=== PATIENT | male | born 1940 | race Asian ===

== ENCOUNTER 2023-08-09 21:26 | Inpatient (IN) | payer OTHER, SELFPAY ==
[2023-08-09] VITALS (8 sets, daily range): BP systolic 93–185; BP diastolic 51–114; BMI 27.9; BMI 26.3
[2023-08-09 13:37] LABS: % Basophils 0.2 % (0-2); % Eosinophils 0.5 % (0-6); % Immature Granulocytes 0.4 % (0-0.5); % Lymphocytes 9.9 % (20.5-51.1); % Monocytes 11.1 % (1.7-9.3); % Neutrophils 77.9 % (42.2-75.2); Absolute Lymphocytes 0.8 10^3/uL (1.2-3.4); Absolute Monocytes 0.9 10^3/uL (0.1-0.6); Absolute Neutrophils 6.5 10^3/uL (1.4-6.5); Hematocrit 33.3 % (39.0-52.0); Hemoglobin 11.4 g/dL (13.0-18.0); Mean Corp Hgb Conc. 34.2 g/dL (33.0-37.0); Mean Corpuscular Hgb 32.8 pg (27.0-31.0); Mean Corpuscular Volume 95.7 fL (80.0-94.0); Mean Platelet Volume 9.9 fL (7.4-10.4); Nucleated Red Blood Cells % 0 % (-); Platelet Count 212 10^3/uL (130-400); Red Blood Cell Count 3.48 10^6/uL (4.70-6.10); Red Cell Dist. Width 12.3 % (11.5-14.5); White Blood Cell Count 8.3 10^3/uL (4.8-10.8)
[2023-08-09 14:01] LABS: ALT (SGPT) 19 U/L (0-50); AST (SGOT) 27 U/L (17-59); Albumin 4.2 g/dl (3.5-5.0); Alkaline Phosphatase 103 U/L (38-126); Blood Urea Nitrogen 27 mg/dl (9-20); Calcium 8.8 mg/dl (8.4-10.2); Carbon Dioxide 20 mmol/L (22-30); Chloride 105 mmol/L (98-107); Glucose 136 mg/dl (70-99); Potassium 5.4 mmol/L (3.5-5.1); Sodium 134 mmol/L (135-145); Total Bilirubin 0.7 mg/dl (0.2-1.3); Total Protein 7.2 g/dl (6.3-8.2); eGFR 30.85
--- NOTE | 2023-08-09 17:09 | ED.GENMED ---
History of Present Illness
General
Chief Complaint: Change in Mental Status
Source: patient and family
Time Seen by Provider: 08/09/23 15:48
Travel History
Have you had any contact with someone who has COVID-19?: No
Do you have any symptoms of coronavirus? Fever > 100 degrees, chills, cough, shortness of breath, sore throat, loss of taste or smell, muscle aches, or headache?: No
History of Present Illness
History of Present Illness:
This patient is an 82-year-old male was his perfectly well until last week as he was boarding a plane to [facility] where he was noted to be weaker than usual and just generally not feeling well. All week while he was in [place] and upon his return here
he has had progressive weakness such that he is having difficulty walking and needs assistance to do so. There is no report of focal weakness. Patient is also getting progressively confused. For example, he left the house or tried to leave the
house last night thinking that he was not home. There is no history of vomiting, chest pain, fever, abdominal pain. He does have mild anorexia and did not eat anything today.
Past History
Past History
ED Past Medical History: Cancer (Prostate CA with Radiation), HTN, Hypercholesterolemia and IDDM
ED Past Surgical History: Appendectomy
Social History
Tobacco: Former smoker
Alcohol: None
Personal:
Living: with family
Phy Exam
Physical Exam
Physical Exam:
GENERAL: Alert , in no apparent distress
EYE: pupils equal and reactive, no photophobia
NECK: Supple, no significant adenopathy.
ENT: o/p clr, mm slightly dry
CARDIAC: Regular rate and rhythm .
LUNGS: Clear breath sounds bilaterally, no acute respiratory distress, no wheezes/rales/rhonchi
ABDOMEN: Soft, without focal tenderness, distended no r/g, no cvat
NEUROLOGICAL: Awake alert. Does not answer questions regarding orientation, does not recognize his clslabkq-yx-tou but is asking for his son. No facial droop noted. Patient does not speak Turkmen to me. Fjiobnkn-lp-fzx who is now bedside states
that he is not making sense when he talks. His speech is not necessarily slurred but what he is saying is not comprehensible. Cmbcsv-cx-mmot normal, cranial nerves II through XII intact. Visual soto appear to be intact, sensory intact to light
touch. Moves all extremities equally no drift of upper extremities. Uncooperative with straight leg raise bilaterally but noted to be able to do so.
SKIN: Warm and dry, skin intact.
MUSCULOSKELETAL: No edema, well perfused.
PSYCH: Normal and appropriate interaction.
Course
Orders/Labs/Results
Orders:
Orders
08/09/23 13:30
CBC/With Diff [Complete Blood Count/With Diff] Urgent
CMP [Comprehensive Metabolic Panel] Urgent
08/09/23 Dinner
Regular
At Your Request: Limited, It Programmer Required
08/09/23 17:08
Electrocardiogram (*1) Urgent
Reason for Study: Other
Other Reason for Exam: sepsis
Cardiac Monitoring- Treatment ONCE
EKG- Treatment ONCE
CR Chest - 2 Views Urgent
Comment:
Reason For Exam: mental status change
Pulse Ox/cont/shift [RESP] Urgent
Quantity: 1
08/09/23 17:09
CT Head W/o Iv Contrast Urgent
Comment:
Reason For Exam: mental status change
08/09/23 17:17
Lactic Acid Q4H
Comment: CANCEL 2nd LACTIC ACID IF 1st LACTIC ACID IS LESS THAN 2
Troponin I Urgent
Urinalysis Reflex To Culture Urgent
Date Specimen was Collected: 08/09/23
Time Specimen was Collected: 17:15
Blood Culture Q30M
CHRISSIE Source: Blood/Venous
Specimen Description:
08/09/23 18:33
Blood Culture Q30M
CHRISSIE Source: Blood/Venous
Specimen Description:
02/21/24 20:54
Admit/Transfer Patient As Directed
Co-Sign Provider:
Level of Care: Inpatient admission
Assign to:: Medical/Surgical
Physician / Group: fatou
Diagnosis: metabolic encephelopathy
Reason for Hospitalization: metabolic encephelopathy
Expected length of stay greater than two midnights?: Yes
ELOS- Estimated Length of Stay in days: 2
I certify the patient meets the requirements for IP care: Yes
Code Status As Directed
Resuscitation Status: Do not resuscitate
Reached after discussion with pt or family/Healthcare POA: Yes
DNR Bracelet Application ONCE
08/09/23 20:57
Bladder Scan As Directed
Follow Bladder Retention/Intermittent Cath Algorithm?: Yes
PRN if no void in __ hours: 6
Frequency: Per Retention Algorithm
If Bladder Scan Result >: 400
then:: Straight cath
Straight Cath As Directed
Frequency: Per Retention Algorithm
Additional Instructions: straight cath as needed per acute urinary retention algorithm for 24 hrs
Additional Instructions: for bladder scan greater than 400 mL
08/09/23 23:50
Dextrose 50%-Water [Dextrose 50% Syringe] 12.5 grams IV [id number] PRN
Glucagon [GlucaGen] 1 mg IM PRN PRN
Insulin Glargine Lantus [Lantus] 20 units Subcutaneous Insulin Syringe [Syringe-Insulin] 0 unit SC HS
08/09/23 23:50
Procalcitonin Routine
PCT Algorithmm Indication: Sepsis
Activity As Directed
Activity Level: As Tolerated
Bedside Glucose Monitoring As Directed
Frequency: AC&HS
Comment: Change to q6h if pt on TPN, tube feeding or not eating
Vital Signs As Directed
Frequency: Per unit guidelines
DX Deep Vein Thrombosis Video Routine
08/10/23 00:47
Complete Blood Count/With Diff IN AM
Comprehensive Metabolic Panel IN AM
Glycohemoglobin (HgbA1c) IN AM
08/10/23 07:30
Insulin Aspart Corrective Low [Novolog Flexpen-Low Resistance] See Protocol SC AC
08/10/23 08:00
Aspirin Chewable [Low Strength Aspirin] 81 mg PO DAILY
Carvedilol [Coreg] 6.25 mg PO BID
Dapagliflozin [Farxiga] 10 mg PO DAILY
Heparin 5,000 units SC Q12
cycloSPORINE [Restasis 0.05% Ophthalmic Emulsion] 1 drops BOTH EYES BID
08/10/23 18:00
Atorvastatin [Lipitor] 10 mg PO QPM
Tamsulosin [Flomax] 0.4 mg PO QPM
omega-3 acid ethyl esters 1 grams PO QPM
Abnormal Lab Results
08/09/23 08/09/23
13:30 17:17
RBC 3.48 L 10^6/uL
(4.70-6.10)
Hgb 11.4 L g/dL
(13.0-18.0)
Hct 33.3 L %
(39.0-52.0)
MCV 95.7 H fL
(80.0-94.0)
MCH 32.8 H pg
(27.0-31.0)
Absolute Lymphs (auto) 0.8 L 10^3/uL
(1.2-3.4)
Absolute Monos (auto) 0.9 H 10^3/uL
(0.1-0.6)
Neutrophils % 77.9 H %
(42.2-75.2)
Lymphocytes % 9.9 L %
(20.5-51.1)
Monocytes % 11.1 H %
(1.7-9.3)
Sodium 134 L mmol/L
(135-145)
Potassium 5.4 H mmol/L
(3.5-5.1)
Carbon Dioxide 20 L mmol/L
(22-30)
BUN 27 H mg/dl
(9-20)
Creatinine 2.1 H mg/dL
(0.7-1.3)
Glucose 136 H mg/dl
(70-99)
Urine Glucose 3+ A
(Negative)
08/09/23 13:30
08/09/23 13:30
Vital Signs
Initial and Last Documented VS:
Initial Vital Signs
Temp Pulse Resp BP Pulse Ox
98.8 F 100 18 141/73 95
08/09/23 13:19 08/09/23 13:19 08/09/23 13:19 08/09/23 13:19 08/09/23 13:19
Last Documented Vital Signs
Temp Pulse Resp BP Pulse Ox
97.9 F 80 18 148/63 95
08/15/23 07:00 08/15/23 08:57 08/15/23 07:00 08/15/23 08:57 08/15/23 07:00
*Critical Care Note
Total Time (30-74mins, 75-104mins- exclusive of procedures): Not Applicable
Update Note
Update Note:
Patient presents to the Emergency Department with ___mental status change
Number and Complexity of Problems Addressed at the Encounter
� Chronic conditions affecting care:
� Acute Exacerbation and/or Progression of Chronic Illness:
� Differential Diagnosis includes: But not limited to pneumonia, UTI, TIA/CVA, medication effect, etc.
Amount and/or Complexity of Data to be Reviewed and Analyzed
� I performed an independent evaluation of and my interpretation is:
EKG:
CT: Head CT NAD read by radiology
Xrays: Chest x-ray NAD read by me
Laboratory Studies: Renal insufficiency which is nearly baseline
Other:
� Review of other/old records reveals: Patient had a very similar presentation June 2021 at that time his mental status change was related to medication Flexeril that he was
� Clinical information was obtained by an independent historian:
� Prescriptions/Medications Considered but not given:
� Further testing considered but not performed:
Risk of Complications and/or Morbidity or Mortality of Patient Management
� Social determinants of health affecting care:
� Discussion with other providers (PCP, Hospitalists, Consultants, etc):
� Escalation of care including admission/observation vs risk of discharge considered: 7:58 PM Case discussed with patient's tyhgvtwh-qx-hco who is now bedside. She states that he first became ill while he was in [place] and got
progressively worse which is why he cut his trip short and came back. She describes him as increasingly weak and having difficulty standing and walking associated with confusion. He does not have any specific complaints, such as chest pain,
dyspnea, etc. Unclear etiology of his symptoms at this time, will need admission/observation, MRI, etc.
ED Attending Note
-
Portions of this chart may have been created with voice recognition software.� Occasional wrong word or��sound alike� substitutions may have occurred due to the inherent limitations of voice recognition software.
Discharge Plan
Departure
Patient Disposition: Admit
Date of Disposition: 08/09/23
Time of Disposition: 20:06
Admit to: Telemetry
Admit to doctor: asif
Presentation/result/management discussed w/ accepting MD/DO: Hospitalist
Condition: Fair
Discharge Problem:
Altered mental status
Interventions
Interventions:
*Risk Screen - Suicide Last Done: 08/09/23 23:46
*General Assessment Last Done: 08/09/23 13:19
*Neglect/Abuse Screening Last Done: 08/09/23 13:19
ED- Fall Risk Assessment Last Done: 08/09/23 18:01
*ED COVID-19 Vaccine History Last Done: 08/09/23 13:19
*Nursing Disposition Last Done: 08/09/23 23:08
ED- Pulmonary Assessment Last Done: 08/09/23 18:01
ED-Psychological Assessment Last Done: 08/09/23 18:01
ED- Neurological Assessment Last Done: 08/09/23 18:01
ED- Cardiac Assessment Last Done: 08/09/23 18:01
ED Swallowing Screen Last Done: 08/09/23 18:01
Discharge Date and Time
Discharge Date/Time: 08/09/23 23:30
[2023-08-09 17:52] LABS: Urine Albumin Trace (Neg - Trace); Urine Bilirubin Negative (Negative); Urine Character Clear (Clear); Urine Color Yellow; Urine Glucose 3+ (Negative); Urine Ketone Negative (Negative); Urine Leukocyte Negative (Negative); Urine Nitrite Negative (Negative); Urine Occult Blood Negative (Negative); Urine Urobilinogen Negative (Neg - 1+)
[2023-08-09 18:04] LABS: Lactic Acid 1.7 mmol/L (0.7-2.0)
[2023-08-09 18:16] LABS: Troponin I 0.017 ng/ml
--- NOTE | 2023-08-09 20:59 | HPS.HSE ---
Family Physician
-
Family Physician: Ld Russell MD
Chief Complaint
-
altered mental status
History of Present Illness
82-year-old Malayalam speaking male past medical history of mild dementia, chronic back pain/neck pain, prostate cancer status post radiation, hypertension, hypercholesterolemia, diabetes, diabetic neuropathy, chronic kidney disease, presenting for
weakness and change in mental status. History is obtained from daughter. He was in his normal state of health prior to July [address] went to [facility]. While in [place] he became progressively more confused. He did not know where he was and
forgot details about himself. He was not making sense when he spoke. He supposed to stay in [place] for 2 weeks but came home after 1 week.
Over the past day he has been having generalized weakness and was unable to get up. Daughter did not note any facial droop or slurred speech. No headache or blurry vision.
Patient was noted to be shaking today. He had an episode of urinary incontinence today which is new without any other urinary symptoms. He did not have any nausea or vomiting or abdominal pain. No cough or shortness of breath or chest pain. No
diarrhea or constipation.
No low blood sugars recently.
No new medications.
Patient was admitted 2 years ago for metabolic encephalopathy attributed to starting Flexeril at that time.
Patient is a former smoker and alcohol user but no longer uses.
Medical History
Past Medical History
Past Medical History: Reports Other ( mild dementia, chronic back pain/neck pain, prostate cancer status post radiation, hypertension, hypercholesterolemia, diabetes, diabetic neuropathy, chronic kidney disease)
Past Surgical History: Reports None
Social History
Tobacco: Former Smoker
Alcohol: Former
Drug: None
Family History
Family History: Not pertinent
Allergies / Home Medications
Allergies reflects when Allergies were last updated in [facility].
Home Medications with original date entered in [facility]
Allergy/Medication List:
Allergies
Allergy/AdvReac Type Severity Reaction Status Date / Time
No Known Allergies Allergy Verified 08/09/23 13:19
Home Medications
aspirin 81 mg chewable tablet 81 mg PO DAILY Blood clot prevention/tx 07/15/21
atorvastatin 10 mg tablet 10 mg PO QPM High cholesterol 07/15/21
bicalutamide 50 mg tablet 50 mg PO QPM Cancer 07/15/21
cyclosporine 0.05 % eye drops in a dropperette (Restasis) 1 drp BOTH EYES BID Eye condition 07/15/21
gabapentin 100 mg capsule 100 mg PO BID Pain 07/15/21
glimepiride 1 mg tablet 1 mg PO DAILY Diabetes 07/15/21
insulin aspart U-100 100 unit/mL (3 mL) subcutaneous pen (Novolog FlexPen U-100 Insulin aspart) 15 units SC AC Diabetes 07/15/21
tamsulosin 0.4 mg capsule 0.4 mg PO QPM Urinary issue 07/15/21
carvedilol 6.25 mg tablet 6.25 mg PO BID 08/09/23
dapagliflozin propanediol 10 mg tablet (Farxiga) 10 mg PO DAILY 08/09/23
insulin degludec 100 unit-liraglutide 3.6 mg/mL(3 mL) subcutaneous pen (Xultophy 100/3.6) 20 unit SC DAILY 08/09/23
irbesartan 300 mg tablet 300 mg PO QPM 08/09/23
omega-3 acid ethyl esters 1 gram capsule 1 g PO QPM 08/09/23
Review of Systems
-
History Source: Patient
A 12 point ROS was completed and negative except as noted: Yes
Constitutional: Reports No Symptoms
EENT: Reports No Symptoms
Respiratory: Reports No Symptoms
Cardiac: Reports No Symptoms
Abdomen/GI: Reports No Symptoms
: Reports No Symptoms
Musculoskeletal: Reports No Symptoms
Skin: Reports No Symptoms
Neurological: Reports No Symptoms
Endocrine: Reports No Symptoms
Hematologic/Lymphatic: Reports No Symptoms
Psych: Reports No Symptoms
Physical Exam
Vital Signs
Vital Signs
Temp Pulse Resp BP Pulse Ox
98.8 F 106 23 177/114 96
08/09/23 13:19 08/09/23 20:30 08/09/23 20:30 08/09/23 20:30 08/09/23 20:30
Physical Exam
General: Well Developed, Well Nourished and No Apparent Distress
HEENT: NormoCephalic, Moist mucous membranes and Atraumatic
Respiratory: Clear
Cardiac: S1/S2 and Regular Rhythm; No Murmur or Rub
GI: Soft, Non Tender, Non Distended and Normal Bowel Sounds; No Organomegaly
Rectal: Deferred by Provider
Musculoskeletal: No Clubbing, No Cyanosis and No Edema
Skin: No Rash
Neuro: Nonfocal/grossly intact
Laboratory Results
-
08/09/23 13:30
08/09/23 13:30
Laboratory Results
Lactic Acid 1.7 mmol/L (0.7-2.0) 08/09/23 17:17
Total Bilirubin 0.7 mg/dl (0.2-1.3) 08/09/23 13:30
AST 27 U/L (17-59) 08/09/23 13:30
ALT 19 U/L (0-50) 08/09/23 13:30
Alkaline Phosphatase 103 U/L (38-126) 08/09/23 13:30
Troponin I 0.017 ng/ml 08/09/23 17:17
Data Reviewed
-
Lab Data: Labs Reviewed by me
Old Records: Reviewed
Impression/Plan
-
IMPRESSION:
PLAN:
# Altered mental status, likely metabolic encephalopathy unclear etiology
# Mild dementia at baseline
-No focal signs on examination to suggest CVA
-Urinalysis negative
-Chest x-ray unremarkable, report pending
-CT head negative
-Check COVID
-Blood cultures pending
-Hold gabapentin
-Check bladder scan to evaluate for urinary retention given episode of incontinence and history of prostate cancer
-Unlikely that prostate cancer would lead to brain metastases
#Chronic kidney disease stage III
# Mild hyperkalemia
-Renal function at baseline
-Hold irbesartan
Prostate cancer status post radiation
-Continue tamsulosin
-Not taking Casodex
Essential hypertension
-Hold irbesartan
-Continue Coreg
Hypercholesterolemia
-Continue statin
Type 2 diabetes
-Continue 20 units long-acting insulin
-Continue 15 units aspart before meals
-Continue Farxiga
-Insulin sliding scale
-Hold glimepiride
Diabetic retinopathy
Diabetic neuropathy
-Hold gabapentin
Chronic neck/back pain
DNR/DNI
DVT prophylaxis-heparin
Regular diet
[2023-08-09 22:06] LABS: COVID-19 Antigen Negative (Negative)
[2023-08-09 23:53] LABS: Glucose - Point of Care 223 mg/dl (70-99)
[2023-08-10] MEDS: LANTUS 0.200000000000000011 UNITS SC (00:25)
[2023-08-10 00:52] LABS: % Basophils 0.1 % (0-2); % Eosinophils 0.4 % (0-6); % Immature Granulocytes 0.6 % (0-0.5); % Lymphocytes 17.3 % (20.5-51.1); % Monocytes 15.5 % (1.7-9.3); % Neutrophils 66.1 % (42.2-75.2); Absolute Lymphocytes 1.2 10^3/uL (1.2-3.4); Absolute Monocytes 1.1 10^3/uL (0.1-0.6); Absolute Neutrophils 4.7 10^3/uL (1.4-6.5); Hematocrit 31.4 % (39.0-52.0); Hemoglobin 10.8 g/dL (13.0-18.0); Mean Corp Hgb Conc. 34.4 g/dL (33.0-37.0); Mean Corpuscular Hgb 32.6 pg (27.0-31.0); Mean Corpuscular Volume 94.9 fL (80.0-94.0); Nucleated Red Blood Cells % 0 % (-); Platelet Count 205 10^3/uL (130-400); Red Blood Cell Count 3.31 10^6/uL (4.70-6.10); Red Cell Dist. Width 12.2 % (11.5-14.5); White Blood Cell Count 7.2 10^3/uL (4.8-10.8)
[2023-08-10 00:58] VITALS: BP 166/78
--- NOTE | 2023-08-10 01:10 | PTCARENOTE ---
Patient received in bed from ED. Pt confused, grandson at bedside. Pt pulled over from stretcher. Pt offers no complaints at this time. Pt oriented to room and call [facility].
[2023-08-10 01:12] LABS: ALT (SGPT) 20 U/L (0-50); AST (SGOT) 29 U/L (17-59); Albumin 3.9 g/dl (3.5-5.0); Alkaline Phosphatase 92 U/L (38-126); Blood Urea Nitrogen 26 mg/dl (9-20); Calcium 8.4 mg/dl (8.4-10.2); Carbon Dioxide 18 mmol/L (22-30); Chloride 104 mmol/L (98-107); Estimated Creatinine Clearance 31 ml/min; Glucose 124 mg/dl (70-99); Potassium 4.4 mmol/L (3.5-5.1); Sodium 132 mmol/L (135-145); Total Bilirubin 0.7 mg/dl (0.2-1.3); Total Protein 6.9 g/dl (6.3-8.2); eGFR 37.12
[2023-08-10 01:43] LABS: Procalcitonin < 0.05 ng/ml (0.0-0.25)
[2023-08-10 07:29] LABS: Glucose - Point of Care 95 mg/dl (70-99)
[2023-08-10 07:30] VITALS: BP 130/83
[2023-08-10] MEDS: NOVOLOG FLEXPEN-LOW RESISTANCE SC ×3 (08:25→17:22)
--- NOTE | 2023-08-10 08:50 | W.PN.HOSP.TC ---
Today's Communication/Plan
-
see bold
Assessment / Plan
Assessment / Plan
Gen: NAD, awake and alert but not oriented, NCAT
Eyes: EOMI, PERRLA, no scleral icterus.
Neck: supple.
CV: RRR, +S1/S2, no m/r/g.
Resp: CTAB, no rales, wheezes, or rhonchi.
Abd: +BS, soft, NT, ND
Skin: No rashes.
Neuro: CN 2-12 intact, non-focal.
Psych: flat affect.
CT brain: No evidence of acute intracranial abnormality.
CXR: Lungs are slightly hypoinflated. Given the degree of inflation, no evidence for consolidation. No evidence for pulmonary edema or pleural effusion.
Altered mental status:
-febrile this AM, check Flu swab, suspect viral
-Febrile illness could cause acute metabolic encephalopathy but there is also likely a component of waxing and waning dementia.
-No focal signs on examination to suggest CVA, CT brain NEG
-Urinalysis negative
-Chest x-ray unremarkable
-COVID NEG
-BCxs pending
-gabapentin on hold
-Check bladder scan to evaluate for urinary retention given episode of incontinence and history of prostate cancer
-Unlikely that prostate cancer would lead to brain metastases
ARCADIO on CKD3b
-with mild hyperkalemia that has resolved
-Cr improved from 2.1 to 1.8
-restart irbesartan
-with non-AG met acidosis start PO bicarb tabs
Prostate cancer status post radiation
-Continue tamsulosin
-Not taking Casodex
Essential hypertension
-restart irbesartan
-Continue Coreg
Hypercholesterolemia
-Continue statin
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
-Continue 20 units long-acting insulin
-Continue 15 units aspart before meals
-Continue Farxiga
-Insulin sliding scale
-Holding glimepiride
-neurontin on hold
Chronic neck/back pain
Hyponatremia, mild
DNR/DNI
DVT prophylaxis-heparin
Pt's son updated over the phone and DIL updated at bedside.
Anticipated Discharge: Today
Subjective/Interval History
-
Date of Service: August 10, 2023
When asked about chest pain, shortness of breath, or any other symptoms the patient does not answer my questions.
Objective Data
-
Labs:
Laboratory Results
08/10/23
00:47
WBC 7.2
Hgb 10.8 L
Hct 31.4 L
Plt Count 205
Sodium 132 L
Potassium 4.4
Chloride 104
Carbon Dioxide 18 L
BUN 26 H
Creatinine 1.8 H
Glucose 124 H
Calcium 8.4
Total Bilirubin 0.7
AST 29
ALT 20
Alkaline Phosphatase 92
Vital Signs:
Vital Signs
Temp Pulse Resp BP Pulse Ox
98.2 F 107 18 166/78 100
08/09/23 23:49 08/09/23 23:49 08/09/23 23:49 08/10/23 00:58 08/09/23 23:49
[2023-08-10] MEDS: NOVOLOG FLEXPEN SC (09:27)
[2023-08-10 09:34] LABS: Glycohemoglobin (HgbA1c) 7.3 % (4.0-5.6)
--- NOTE | 2023-08-10 09:36 | CM ---
manager respiratory care reviewed patient's chart and met with patient and daughter in law at bedside, patient is independent with adl's and uses a walker with ambulation at times, patient lives in patient's son and daughter in law's home that is 2 story and
patient has a 1st floor set up, physical therapy consult is pending. Patient and daughter in law are agreeable to [facility] if recommended. Patient has a prescription plan and uses [facility] pharmacy.
PCP: Dr. Ld Russell
Plan; Await physical therapy evaluation, patient's daughter in law is agreeable to [facility].
[2023-08-10] MEDS: LOW STRENGTH ASPIRIN 81 MG PO (09:37)
[2023-08-10] MEDS: FARXIGA 10 MG PO (09:37)
[2023-08-10] MEDS: SODIUM BICARBONATE 650 MG PO ×2 (09:37→19:23)
[2023-08-10] MEDS: COREG 6.25 MG PO ×2 (09:37→19:23)
[2023-08-10] MEDS: RESTASIS 0.05% OPHTHALMIC EMULSION 1 DROPS BOTH EYES ×2 (09:37→19:24)
[2023-08-10] MEDS: HEPARIN 5000 UNITS SC ×2 (09:38→19:23)
--- NOTE | 2023-08-10 10:57 | VNURNOTE ---
Home health liaison met with patient and [id number] Selam to discuss [facility] services, visit scheduling/frequency, homebound status and pet policy. Selam states patient has had [facility] services in the past and is interested in having again. Selam
aware home visits will be 1-2 times a week and visiting nurse will contact them for start of care within 1-2 days after discharge from . Brochure given with contact information. [facility] Referral completed in care port
[2023-08-10 12:29] VITALS: BP 104/62; BP 118/65; PULSE 89; O2SAT 96
[2023-08-10 13:14] LABS: Glucose - Point of Care 135 mg/dl (70-99)
[2023-08-10] MEDS: NOVOLOG FLEXPEN 15 UNITS SC ×2 (13:27→17:23)
[2023-08-10 16:28] VITALS: BP 103/59
[2023-08-10 17:16] LABS: Glucose - Point of Care 118 mg/dl (70-99)
[2023-08-10] MEDS: AVAPRO 300 MG PO (17:22)
[2023-08-10] MEDS: LIPITOR 10 MG PO (17:22)
[2023-08-10] MEDS: FLOMAX 0.400000000000000022 MG PO (17:22)
[2023-08-10 22:19] LABS: Glucose - Point of Care 64 mg/dl (70-99)
[2023-08-10] MEDS: LANTUS SC (22:52)
[2023-08-10 22:53] LABS: Glucose - Point of Care 70 mg/dl (70-99)
[2023-08-10 23:20] VITALS: BP 93/49
[2023-08-11] VITALS (7 sets, daily range): BP systolic 72–117; BP diastolic 46–68; PULSE 72–80
[2023-08-11 01:10] LABS: Glucose - Point of Care 84 mg/dl (70-99)
[2023-08-11 03:08] LABS: Glucose - Point of Care 90 mg/dl (70-99)
--- NOTE | 2023-08-11 08:00 | RR ---
Patient becoming unresponsive in bathroom, patient seated on BSC. Patient requiring multiple staff member assist back to bed. BP 88/52. A Rapid Response was called on this patient, please see Rapid Response form.
[2023-08-11 08:33] LABS: Glucose - Point of Care 122 mg/dl (70-99)
[2023-08-11 08:51] LABS: Hematocrit 33.3 % (39.0-52.0); Hemoglobin 11.7 g/dL (13.0-18.0); Mean Corp Hgb Conc. 35.1 g/dL (33.0-37.0); Mean Corpuscular Hgb 33.1 pg (27.0-31.0); Mean Corpuscular Volume 94.1 fL (80.0-94.0); Mean Platelet Volume 10.1 fL (7.4-10.4); Platelet Count 227 10^3/uL (130-400); Red Blood Cell Count 3.54 10^6/uL (4.70-6.10); Red Cell Dist. Width 12.1 % (11.5-14.5); White Blood Cell Count 8.2 10^3/uL (4.8-10.8)
[2023-08-11] MEDS: NOVOLOG FLEXPEN-LOW RESISTANCE SC ×2 (08:54→16:55)
--- NOTE | 2023-08-11 08:54 | CM ---
legal project manager reviewed patient's chart and per physical therapy recommendation is for skilled placement, case management director spoke with family regarding skilled placement and with patient's insurance family made aware that they have limited options,
referral sent to [facility] on [address].
Plan; Skilled placement.
--- NOTE | 2023-08-11 09:04 | W.PN.HOSP.TC ---
Today's Communication/Plan
-
see bold
Assessment / Plan
Assessment / Plan
Gen: NAD, awake and alert but not oriented (not answering questions), NCAT
Eyes: EOMI, PERRLA, no scleral icterus.
Neck: supple.
CV: remains RRR, +S1/S2, no m/r/g.
Resp: CTAB anteriorly, no rales, wheezes, or rhonchi.
Abd: +BS, soft, NT, ND
Skin: No rashes.
Neuro: CN 2-12 intact, non-focal.
Psych: flat affect.
CT brain: No evidence of acute intracranial abnormality.
CXR: Lungs are slightly hypoinflated. Given the degree of inflation, no evidence for consolidation. No evidence for pulmonary edema or pleural effusion.
Altered mental status:
-only one fever or 100.4 F without recurrence
-Febrile illness could cause acute metabolic encephalopathy but there is also likely a component of waxing and waning dementia.
-No focal signs on examination to suggest CVA, CT brain NEG
-Urinalysis negative
-Chest x-ray unremarkable
-COVID/flu NEG
-BCxs pending
-gabapentin on hold
-check MRI brain w/wo, c/s neuro
ARCADIO on CKD3b
-with mild hyperkalemia that has resolved
-Cr improved from 2.1 to 1.8, now 2.2
-stop irbesartan
-with non-AG met acidosis bicarb tabs started
-c/s renal
Prostate cancer status post radiation
-Continue tamsulosin
-Not taking Casodex
Essential hypertension:
-Continue Coreg
Hypercholesterolemia
-Continue statin
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
-Continue 20 units long-acting insulin
-Continue 15 units aspart before meals
-Continue Farxiga
-Insulin sliding scale
-Holding glimepiride
-neurontin on hold
Chronic neck/back pain
Hyponatremia, mild
DNR/DNI
DVT prophylaxis-heparin
Pt's daughter updated at bedside.
Anticipated Discharge: 24 - 48 hours
Subjective/Interval History
-
Date of Service: August 11, 2023
Patient had a vagal episode this morning. Currently not answering questions.
Objective Data
-
Labs:
Laboratory Results
08/11/23
08:40
WBC 8.2
Hgb 11.7 L
Hct 33.3 L
Plt Count 227
PT Pending
INR Pending
APTT Pending
Sodium Pending
Potassium Pending
Chloride Pending
Carbon Dioxide Pending
BUN Pending
Creatinine Pending
Glucose Pending
Calcium Pending
Total Bilirubin Pending
AST Pending
ALT Pending
Alkaline Phosphatase Pending
Vital Signs:
Vital Signs
Temp Pulse Resp BP Pulse Ox
97.8 F 82 16 93/49 98
08/10/23 23:20 08/10/23 23:20 08/10/23 23:20 08/10/23 23:20 08/10/23 23:20
I&O
08/10/23 08/11/23 08/12/23
06:59 06:59 06:59
Intake Total 360 / 360
Balance 360 / 360
[2023-08-11 09:05] LABS: INR 1.05; PT 13.5 Sec (11.4-14.6)
[2023-08-11 09:06] LABS: ALT (SGPT) 24 U/L (0-50); APTT 34.4 Sec (23.4-35.0); AST (SGOT) 48 U/L (17-59); Albumin 3.8 g/dl (3.5-5.0); Alkaline Phosphatase 87 U/L (38-126); Blood Urea Nitrogen 35 mg/dl (9-20); Calcium 8.7 mg/dl (8.4-10.2); Carbon Dioxide 18 mmol/L (22-30); Chloride 103 mmol/L (98-107); Estimated Creatinine Clearance 25 ml/min; Glucose 123 mg/dl (70-99); Potassium 4.5 mmol/L (3.5-5.1); Sodium 131 mmol/L (135-145); Total Bilirubin 0.6 mg/dl (0.2-1.3); Total Protein 6.7 g/dl (6.3-8.2); eGFR 29.17
[2023-08-11] MEDS: COREG PO (09:20)
[2023-08-11] MEDS: NOVOLOG FLEXPEN 15 UNITS SC ×3 (09:32→17:53)
[2023-08-11] MEDS: LOW STRENGTH ASPIRIN 81 MG PO (09:32)
[2023-08-11] MEDS: HEPARIN 5000 UNITS SC ×2 (09:32→20:29)
[2023-08-11] MEDS: SODIUM BICARBONATE 650 MG PO ×2 (09:32→20:36)
[2023-08-11] MEDS: RESTASIS 0.05% OPHTHALMIC EMULSION 1 DROPS BOTH EYES ×2 (09:32→20:29)
[2023-08-11] MEDS: FARXIGA 10 MG PO (09:32)
--- NOTE | 2023-08-11 10:03 | CON.CAR ---
Addendum entered and electronically signed by Rusty Rosado MD 08/11/23 14:21:
82-year-old man with progressive weakness and confusion over the last few weeks, exacerbated on a recent trip to [facility] which was cut short because of his confusion, weakness with inability to stand and mental status changes. Admitted on August 09
for evaluation of this following an episode of incontinence. This morning, he became unresponsive while standing and urinating, when placed in bed had a systolic blood pressure of 88, was not hypoglycemic. Troponin 1.2 and consultation is
requested.
PMH: Hypertension, hyperlipidemia, diabetes, CKD, prostate cancer status post XRT
PSH: Noncontributory
FH: Noncontributory
SH: Former smoker and alcohol, , retired lives with family
Allergies are none, outpatient meds include aspirin 81 mg a day, atorvastatin 10 mg a day, Casodex, Neurontin, glimepiride, insulin, tamsulosin, carvedilol 6.25, Farxiga, irbesartan, omega-3 fatty acids
ROS: Negative except as above
92/52, pulse 86, respiratory rate 18, afebrile sats are 96%
very flat affect, answers questions slowly,
Head neck exam unremarkable
Lungs clear
Gynecomastia
No obvious murmurs, JVD okay no bruits
Abdomen benign
Extremities without edema
Neuro, appears cognitively impaired nonfocal
CT of the head is unremarkable
ECG: Normal sinus rhythm left bundle branch block
Chest x-ray some cardiomegaly, limited inspiration, some vascular crowding
Hemoglobin 11.7, sodium 131, potassium 4.5, BUN and creatinine 35 and 2.2, troponin 1.26
Assessment:
Altered mental status, weakness, incontinence
Suspected micturition syncope
Suspected non-MD troponin elevation versus non-ST segment elevation MD and left bundle branch block
Hypotension likely related to medications and possible volume depletion
ARCADIO on CKD
chronic LBBB
HTN
HLD
DM2
Prostate cancer s/p radiation
BPH
Plan:
He presents with what is possibly micturition syncope. As an outpatient he is on carvedilol and irbesartan at high dose. Medications could be contributing to orthostatic hypotension as well.
His troponin elevation may be non-MD troponin related.
It is unknown whether his left bundle branch block is new.
Will check echo and follow-up troponin.
Given mental status changes, would pursue a conservative strategy at the present.
With international travel and cancer on Casodex, some concern regarding thromboembolic disease, although he does not appear dyspneic.. Will check a D-dimer and consider a VQ scan if D-dimer is substantially elevated. Creatinine is 2.2.
He is mildly hyponatremic.
We should exclude bladder outlet obstruction as a potential issue, will bladder scan if not already done.
We can determine the need for ischemic evaluation based on his clinical course over the weekend.
Original Note:
Consultation
Consultation Request
Date/Time Consultation Performed: 08/11/23
Requesting Provider: Dr. Gonzales
Performing Provider: Cheyanne Sanchez PA-C for Dr. DARÍO Rosado
Reason for Consultation: syncope, elevated troponin
Medical History
-
Chief Complaint: weakness, confusion
History of Present Illness:
Patient is an 82-year-old male with past medical history of diabetes, hypertension, hyperlipidemia, prostate cancer s/p radiation, BPH who was noted by family over the last several weeks to have progressive confusion and weakness. They went on a
recent trip to [facility] on July 30, and while he was there they stated he continued to get worse. He thought he was still in the [place], asking to go to his home. They ended up cutting their trip short and coming home several days early.
2 days ago patient had an episode of incontinence, and was very weak, unable to stand on his own. He was brought into the emergency room for evaluation and admitted. This morning, patient was standing up urinating and became unresponsive for
nursing. They sat him in a chair. Blood pressure was noted to be low at 88/50. Blood sugar was fine. They then laid him back in bed. His EKG was sinus rhythm with baseline left bundle branch block. He then came to and is back to baseline now.
In setting of this event blood work was checked including troponin, which was elevated at 1.2. He is without any chest discomfort, shortness of breath both in the hospital as well as as an outpatient. He denies history of coronary artery disease
to his knowledge, and has never had an MD or required stent placement. He is noted to have chronic kidney disease at baseline. He is in for brain MRI and neurology consult.
PMH:
HTN
HLD
DM2
CKD
Prostate cancer s/p radiation
BPH
Past Medical History
Past Medical History: Other (in HPI)
Social History
Tobacco: Former Smoker
Alcohol: Former
Personal:
Living: With Family
Employment: Retired
Family History
Family History: Diabetes
Allergies / Home Medications
Allergy/AdvReac Type Severity Reaction Status Date / Time
No Known Allergies Allergy Verified 08/09/23 13:19
Medication Instructions Recorded Confirmed Type
aspirin 81 mg chewable tablet 81 mg PO DAILY Blood clot 07/15/21 08/09/23 History
prevention/tx
atorvastatin 10 mg tablet 10 mg PO QPM High cholesterol 07/15/21 08/09/23 History
bicalutamide 50 mg tablet 50 mg PO QPM Cancer 07/15/21 07/15/21 History
cyclosporine 0.05 % eye drops in a 1 drp BOTH EYES BID Eye condition 07/15/21 08/09/23 History
dropperette (Restasis)
gabapentin 100 mg capsule 100 mg PO BID Pain 07/15/21 08/09/23 History
glimepiride 1 mg tablet 1 mg PO DAILY Diabetes 07/15/21 08/09/23 History
insulin aspart U-100 100 unit/mL 15 units SC AC Diabetes 07/15/21 08/09/23 History
(3 mL) subcutaneous pen (Novolog
FlexPen U-100 Insulin aspart)
tamsulosin 0.4 mg capsule 0.4 mg PO QPM Urinary issue 07/15/21 08/09/23 History
carvedilol 6.25 mg tablet 6.25 mg PO BID 08/09/23 08/09/23 History
dapagliflozin propanediol 10 mg 10 mg PO DAILY 08/09/23 08/09/23 History
tablet (Farxiga)
insulin degludec 100 20 unit SC DAILY 08/09/23 08/09/23 History
unit-liraglutide 3.6 mg/mL(3 mL)
subcutaneous pen (Xultophy 100/3.6)
irbesartan 300 mg tablet 300 mg PO QPM 08/09/23 08/09/23 History
omega-3 acid ethyl esters 1 gram 1 g PO QPM 08/09/23 08/09/23 History
capsule
Review of Systems
-
History Source: Patient and Family
All other systems: Negative unless noted
Physical Exam
Vital Signs
Temp Pulse Resp BP Pulse Ox
97.8 F 86 18 92/52 96
08/11/23 08:00 08/11/23 09:20 08/11/23 08:00 08/11/23 09:20 08/11/23 08:00
Lab Results
08/11/23 08:40
08/11/23 08:40
Troponin I 1.260 ng/ml H* 08/11/23 08:40
Physical Exam
General: No Apparent Distress, Comfortable and Other (on supp O2)
HEENT: Normocephalic, Anicteric and Moist Mucous Membranes
Respiratory: Clear and Non Labored Respirations
Cardiac: S1/S2 and Regular Rhythm
GI: Soft, Non Tender, Non Distended and Normal Bowel Sounds
Musculoskeletal: No Clubbing, No Cyanosis and No Edema
Skin: Warm and Dry
Neuro: Awake, Alert and Oriented (to self)
Impression / Plan
-
[employer]: family believes at [place], however cannot remember name
Assessment:
Presentation with weakness, confusion
Altered mental status
ARCADIO on CKD
nonanion gap metabolic acidosis
Elevated troponin
Syncopal episode 08/11 AM
chronic LBBB
HTN
HLD
DM2
CKD
Prostate cancer s/p radiation
BPH
Plan:
-Patient was admitted for evaluation of progressive weakness and confusion. COVID and flu negative. Blood cultures negative. Head CT without evidence of acute intracranial abnormality. For neuro evaluation as well as brain MRI
-Cardiology asked to see patient in urgent consultation due to syncopal episode while standing to urinate this morning. Was noted to be hypotensive with the episode. Now felt to be back to baseline.
-Troponin elevated at 1.26. No chest pain or shortness of breath. EKG appears stable in sinus rhythm with chronic left bundle branch block. trend trops to peak
-continue asa, statin, BB as able
-check CVE
-check echo
-place on telemetry
-OP irbesartan stopped. hold parameters placed on coreg. check ortho VS
-discussed with nursing and family at bedside. with present ARCADIO, would hold off on consideration for cath due to high risk of ATN.
-PT/OT evals
Data Reviewed
-
EKG: Tracing Personally Visualized and interpreted
Radiology: Report Reviewed by me
CT Scan: Report Reviewed by me
Labs: Labs Reviewed by me
Old Records: Reviewed
--- NOTE | 2023-08-11 10:36 | CON.NEURO4 ---
Consultation - Neurology 4
-
CONSULTING PHYSICIAN: Danay Salinas
REFERRING PHYSICIAN: Dr Gonzales
DICTATED BY: Danay Salinas
DATE/TIME OF REQUEST: 08/11/23
DATE/TIME OF CONSULTATION: 08/11/23
Reason for Consultation: Confusion, concern for underlying dementia
History of Present Illness:
The patient is an 82-year-old right-handed male with a past medical history of neck pain, prostate cancer, hypertension, hyperlipidemia, diabetes with associated CKD and neuropathy presented to hospital due to confusion and generalized weakness.
He had had a recent trip to [facility] on approximately July 30, he had not been there many years. During there he became cannot remembering where he was and that they have been traveling away from home, no obvious sick contacts there are no head
injuries. He returned home early after 1 week and then began to have generalized weakness and ambulatory difficulty. No unilateral weakness or facial droop had been observed.
Patient has been noted over about the past 1 to 2 months to have worsening confusion and memory problems, more short-term memory. There has not been any obvious unilateral tremor or visual or auditory hallucinations. No previous history of stroke.
Family had been thinking that he might have a mild or early form of dementia for several months now.
No headache, photophobia, nausea, vomiting, abdominal pain, sore throat, or cough.
Past Medical History: Prostate cancer, hypertension, hyperlipidemia, diabetes with associated CKD and neuropathy
Surgical History: Denies any surgeries
Family History: Non-contributory
Social History: Patient lives at home with his son, he was born and grew up in [place] and speaks some Slovak, Malayalam and Luis. He did smoke tobacco for around 3-4 decades but since quit several years ago, previous use of alcohol but no longer
uses. At baseline he does not use any assistance for ambulation. 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
Allergies: No known drug allergies
Review of Symptoms:
Patient denies any fever, headache, chest pain, shortness of breath, GI or symptoms.
Physical Exam:
Elderly man well-appearing nontoxic-appearing no head or neck trauma neck supple full range of motion, no neck masses oropharynx is clear moist mucous membranes, heart rate regular breathing unlabored, no lower extremity edema, no joint malformation
or edema
Neurologic Examination:
Patient is awake and conversational, difficulty remembering immediate memory items and memory recall after 5 minutes 0/5, counts to 20 without difficulty, and serial 7 subtraction but no further after this, obeys two-step commands easily, name
simple objects easily, repetition is intact, praxis is normal.is able to follow commands and answer questions appropriately. There is no aphasia or dysarthria. On cranial nerve assessment, pupils are 3 mm bilateral, round and reactive to light and
accommodation. Visual soto are full. Extraocular movements are intact. Facial sensations are intact and bilaterally symmetrical, there is no facial asymmetry. Hearing is intact bilaterally to normal conversation volume. Tongue palate and uvula
are midline. Sternocleidomastoid strengths are full bilaterally. Motor strengths are 5/5 bilateral upper and lower extremities on medical research [place] scale. There is no drift or involuntary movement noted. Deep tendon reflexes are 2+ bilateral
upper and lower extremities and Babinski is absent bilaterally. Sensations of pain, touch, temperature and vibration are intact and bilaterally symmetrical. There was no extinction noted on double simultaneous stimulation. Coordination is intact by
finger to nose bilaterally.
Neuro Imaging: CT head non contrast no acute abnormalities
Impressions
1. Subacute change in mental status. Most likely possibilities are a baseline mild cognitive impairment/early dementia which can commonly deteriorate in situations with a signficant change in setting (in this case the trip to [facility]), a subacute
ischemic stroke is also possible manifesting with more confusion and generalized weakness without focal deficits g iven his age and vascular risk factors. Mild febrile illness could also be contributing, no signs of headache, photophobia or
meningismus so suspicion of LEAVE COORDINATOR infection very low.
Recommendations:
1. Check MRI of the brain with and without contrast
2. Check vitamin B12, B1, TSH
3. Follow lab work and monitor for further fevers
4. Not recommending lumbar puncture
5. Will require outpatient neuropsychologic testing and consideration for Memantine and/or Donepezil.
Discussed patient care with: Patient and his daguther
[2023-08-11 12:27] LABS: Glucose - Point of Care 188 mg/dl (70-99)
[2023-08-11] MEDS: NOVOLOG FLEXPEN-LOW RESISTANCE 1 UNITS SC (12:39)
[2023-08-11 12:48] LABS: Troponin I 0.953 ng/ml
--- NOTE | 2023-08-11 15:41 | W.CON.NEPH ---
Addendum entered and electronically signed by Malika Heath MD 08/11/23 17:41:
Physical exam:
Gen: no acute distress, comfortable
Skin: no rashes or lesions
Neck: supple no JVD
Chest: symmetrical equal expansion
Lungs: clear bilaterally no rales or wheezing
Heart: regular rhythm and rate or gallops or murmur
Abdomen: soft nontender nondistended
: Deferred
Extremities: no edema or cyanosis
Neurological: grossly seems nonfocal but confused, short-term memory loss
Psychiatric: confused
Original Note:
Consultation
-
Date/Time Consultation Requested: 08/11/23 0900
Date/Time Consultation Performed: 08/11/23 1600
Requesting Provider: Kiran Romo
Performing Provider: Malika Gaston
Reason for Consultation: CKD, met acidosis
Medical History
-
Chief Complaint: AMS
History of Present Illness:
82-year-old Malayalam speaking male past medical history of mild dementia, chronic back pain/neck pain, prostate cancer status post radiation, hypertension on coreg, Orbasartan, hypercholesterolemia on statin, diabetes type 2 on insulin, diabetic
neuropathy, chronic kidney disease 3b baseline cr 2, presenting for weakness and change in mental status on 08/09.� He was in his normal state of health prior to July 30 when he went to [facility].� While in [place] he became progressively more
confused. He supposed to stay in [place] for 2 weeks but came home after 1 week. SInce his return he has generalized weakness and urine incontinence. BP were in 90 range at home and family with held BP meds. He did not have any nausea or vomiting or
abdominal pain but appetite was poor.� No cough or shortness of breath or chest pain.� No diarrhea or constipation.
He saw neuro and felt probably from dementia with change in environment during travel. He noted to have labile BPs and hypotension here and passed out once while attempting to urinate. Saw cards for high trop felt from non TX and felt to have
micturition syncope. Cr on admit was 2.1 improved to 1.8 but today ay 2.2 along with worsening met acidosis since nephro consult. Pt has all his medical care in [place] and likely not established nephro yet which [place]. Most of the history from daughter at bedside and chart.
Past Medical History
mild dementia, chronic back pain/neck pain, prostate cancer status post radiation, hypertension, hypercholesterolemia, diabetes, diabetic neuropathy, chronic kidney disease
Social History
Tobacco: Former Smoker
Alcohol: Former
Drug: None
Living: With Family
Family History
Family History: Not Pertinent
Allergies / Home Medications
Allergy/AdvReac Type Severity Reaction Status Date / Time
No Known Allergies Allergy Verified 08/09/23 13:19
Medication Instructions Recorded Confirmed Type
aspirin 81 mg chewable tablet 81 mg PO DAILY Blood clot 07/15/21 08/09/23 History
prevention/tx
atorvastatin 10 mg tablet 10 mg PO QPM High cholesterol 07/15/21 08/09/23 History
bicalutamide 50 mg tablet 50 mg PO QPM Cancer 07/15/21 07/15/21 History
cyclosporine 0.05 % eye drops in a 1 drp BOTH EYES BID Eye condition 07/15/21 08/09/23 History
dropperette (Restasis)
gabapentin 100 mg capsule 100 mg PO BID Pain 07/15/21 08/09/23 History
glimepiride 1 mg tablet 1 mg PO DAILY Diabetes 07/15/21 08/09/23 History
insulin aspart U-100 100 unit/mL 15 units SC AC Diabetes 07/15/21 08/09/23 History
(3 mL) subcutaneous pen (Novolog
FlexPen U-100 Insulin aspart)
tamsulosin 0.4 mg capsule 0.4 mg PO QPM Urinary issue 07/15/21 08/09/23 History
carvedilol 6.25 mg tablet 6.25 mg PO BID 08/09/23 08/09/23 History
dapagliflozin propanediol 10 mg 10 mg PO DAILY 08/09/23 08/09/23 History
tablet (Farxiga)
insulin degludec 100 20 unit SC DAILY 08/09/23 08/09/23 History
unit-liraglutide 3.6 mg/mL(3 mL)
subcutaneous pen (Xultophy 100/3.6)
irbesartan 300 mg tablet 300 mg PO QPM 08/09/23 08/09/23 History
omega-3 acid ethyl esters 1 gram 1 g PO QPM 08/09/23 08/09/23 History
capsule
Review of Systems
-
difficult to obtain since pt is confused
Physical Exam
Vital Signs
Vital Signs
Temp Pulse Resp BP Pulse Ox
97.6 F 82 20 72/48 100
08/11/23 12:05 08/11/23 12:05 08/11/23 12:05 08/11/23 12:36 08/11/23 12:05
Lab Results
WBC 8.2 10^3/uL (4.8-10.8) 08/11/23 08:40
RBC 3.54 10^6/uL (4.70-6.10) L 08/11/23 08:40
Hgb 11.7 g/dL (13.0-18.0) L 08/11/23 08:40
Hct 33.3 % (39.0-52.0) L 08/11/23 08:40
Plt Count 227 10^3/uL (130-400) 08/11/23 08:40
Sodium 131 mmol/L (135-145) L 08/11/23 08:40
Potassium 4.5 mmol/L (3.5-5.1) 08/11/23 08:40
Chloride 103 mmol/L (98-107) 08/11/23 08:40
Carbon Dioxide 18 mmol/L (22-30) L 08/11/23 08:40
BUN 35 mg/dl (9-20) H 08/11/23 08:40
Creatinine 2.2 mg/dL (0.7-1.3) H 08/11/23 08:40
eGFR 29.17 08/11/23 08:40
Glucose 123 mg/dl (70-99) H 08/11/23 08:40
Calcium 8.7 mg/dl (8.4-10.2) 08/11/23 08:40
Albumin 3.8 g/dl (3.5-5.0) 08/11/23 08:40
Exams:� CR Chest - 2 Views
CPT: 19942
PROCEDURE: CR Chest - 2 Views
CLINICAL INDICATION: mental status change
TECHNIQUE: Sitting AP and lateral views of chest performed.
COMPARISON: No comparison examination of the chest is available
FINDINGS: The lungs appear slightly hypoinflated, especially on the frontal view, with resultant crowding of the bronchovascular markings. Given the degree of inflation, no evidence for lung consolidation/pneumonia.
Cardiac silhouette size is within normal limits with no evidence for pulmonary edema or pleural effusion.
IMPRESSION:
Lungs are slightly hypoinflated. Given the degree of inflation, no evidence for consolidation. No evidence for pulmonary edema or pleural effusion.
Electronically signed by Nawaf Reynoso MD 08/09/2023 10:06 PM
Dictated By: Nawaf Reynoso MD
Dictated Date & Time: 08/09/232203
Signed/Co-Signer By: Nawaf Reynoso MD /
Signed/Co-Signer Date & Time: 08/09/232205 /
Assessment/Plan
-
IMP:
Altered mental status, likely metabolic encephalopathy unclear etiology
Hypotension
suspected micturition syncope
Mild dementia at baseline
Chronic kidney disease stage IIIb-baseline 1.7-2
mild met acidosis
Mild hyperkalemia
mild hyponatremia
Prostate cancer status post radiation
Essential hypertension
Hypercholesterolemia
Type 2 diabetes with mild microalbuminuria
Diabetic retinopathy
Diabetic neuropathy
Chronic neck/back pain
Plan:
A/w AMS, felt TME with baseline dementia , MRI pending report
CKD-cr seem close to baseline
bland UA, check renal US for baseline
BP are labile, check cortisol level-agree with isotonic IVF
if no improvement likely need to check echo
may have autonomic neuropathy from DM, follow ortho vitals
holding all BP meds, also hold farxiga
follow bladder scan, SC as needed
Met acidosis-ok to start po bicarb BID, if worsens may need to change to bicarb IVF
follow labs
d/w daughter at bedside in detail
[2023-08-11 16:51] LABS: Glucose - Point of Care 94 mg/dl (70-99)
[2023-08-11] MEDS: NSS 1000 IV (17:52)
[2023-08-11] MEDS: LIPITOR 10 MG PO (17:54)
[2023-08-11] MEDS: FLOMAX 0.400000000000000022 MG PO (17:54)
[2023-08-11 19:05] LABS: Vitamin B12 346 pg/ml (239-931)
--- NOTE | 2023-08-11 19:20 | PTCARENOTE ---
Trop 0.650 at 1918. CARMELO Perez made aware. Pt asymptomatic. Trops trending down. No new orders.
[2023-08-11] MEDS: COREG 6.25 MG PO (20:29)
[2023-08-11 21:14] LABS: Glucose - Point of Care 91 mg/dl (70-99)
[2023-08-11] MEDS: LANTUS SC (21:39)
[2023-08-11 22:45] LABS: Protein/creatinine Ratio 0.5; Urine Protein 18 mg/dl
[2023-08-11] MEDS: TYLENOL 650 MG PO (23:35)
[2023-08-12 01:37] LABS: Troponin I 0.594 ng/ml
[2023-08-12] MEDS: NSS 1000 IV ×2 (03:04→09:39)
[2023-08-12 03:53] LABS: Glucose - Point of Care 56 mg/dl (70-99)
[2023-08-12 03:55] VITALS: BP 111/58
[2023-08-12] MEDS: DEXTROSE 50% SYRINGE 12.5 GRAMS IV (04:04)
[2023-08-12 04:29] LABS: Glucose - Point of Care 141 mg/dl (70-99)
[2023-08-12 04:34] LABS: Glucose - Point of Care 156 mg/dl (70-99)
[2023-08-12 06:38] LABS: HDL Cholesterol 33 mg/dl; LDL Cholesterol, Calculated 71 mg/dl; Total Cholesterol 124 mg/dl (50-199); Triglyceride 102 mg/dl (10-149); Very Low Density Lipoprotein 20 mg/dl (0-30)
[2023-08-12 07:04] LABS: Cortisol, Random 12.7 ug/dl; TSH Reflex To Free T4 1.89 uIU/ml (0.47-4.68)
[2023-08-12 07:14] LABS: Glucose - Point of Care 133 mg/dl (70-99)
[2023-08-12 08:00] VITALS: BP 106/41
[2023-08-12] MEDS: NOVOLOG FLEXPEN-LOW RESISTANCE SC ×3 (08:18→18:25)
[2023-08-12] MEDS: NOVOLOG FLEXPEN SC ×2 (08:19→10:01)
[2023-08-12] MEDS: HEPARIN 5000 UNITS SC ×2 (09:21→20:16)
[2023-08-12] MEDS: LOW STRENGTH ASPIRIN 81 MG PO (09:21)
[2023-08-12] MEDS: RESTASIS 0.05% OPHTHALMIC EMULSION 1 DROPS BOTH EYES ×2 (09:21→20:15)
[2023-08-12] MEDS: COREG 6.25 MG PO ×2 (09:21→20:19)
[2023-08-12] MEDS: SODIUM BICARBONATE 650 MG PO ×2 (09:22→20:15)
[2023-08-12] MEDS: FARXIGA PO (09:23)
--- NOTE | 2023-08-12 09:52 | W.PN.HOSP.TC ---
Today's Communication/Plan
-
see bold
Assessment / Plan
Assessment / Plan
Gen: NAD, awake and alert but not oriented, NCAT
Eyes: EOMI, PERRLA, no scleral icterus.
Neck: supple.
CV: continues to remain RRR, +S1/S2, no m/r/g.
Resp: remains CTAB anteriorly, no rales, wheezes, or rhonchi.
Abd: +BS, soft, NT, ND
Skin: No rashes.
Neuro: remains CN 2-12 intact, non-focal.
Psych: flat affect.
08/09/23 18:33 Blood/Venous Blood Culture - Preliminary
No Growth in 48 hours- Final report to follow
08/09/23 17:17 Blood/Venous Blood Culture - Preliminary
No Growth in 48 hours- Final report to follow
08/10/23 10:22 Nasal Swab Influenza Types A & B (PRASAD) - Final
Negative for Influenza A & B, NAAT
Negative results must be combined with clinical observations
and patient history.
Nucleic Acid Amplification test (NAAT)performed on the
[employer] NOW platform.
CT brain: No evidence of acute intracranial abnormality.
CXR: Lungs are slightly hypoinflated. Given the degree of inflation, no evidence for consolidation. No evidence for pulmonary edema or pleural effusion.
MRI brain:
1. � No MRI evidence for acute infarct or intracranial hemorrhage.
2. � Moderate to severe bilateral temporal lobe volume loss. Moderate volume loss in the frontal lobes and parietal lobes. The findings suggest a SEVERE CHRONIC NEURODEGENERATIVE DISEASE (possibly Alzheimer's disease).
3. � Moderate white matter leukoaraiosis in the frontal and parietal lobes.
Echo: Normal left ventricular size, wall thickness and systolic function. No regional
�wall motion abnormalities are seen. LV ejection fraction is 60-65% by visual
�assessment.� Diastolic function indeterminate.
Altered mental status:
-only one fever or 100.4 F without recurrence
-Febrile illness could cause acute metabolic encephalopathy but there is also likely a component of waxing and waning dementia.
-No focal signs on examination to suggest CVA, CT brain NEG
-Urinalysis negative
-Chest x-ray unremarkable
-COVID/flu NEG
-BCxs NGTD
-gabapentin on hold
-MRI brain above, findings consistent with severe chronic neurodegenerative disease (possibly Alzheimer disease)
-neuro following
Elevated trop:
-NSTEMI vs non-NE trop elevation as per cards
-cardiology following
-echo above, unremarkable
-currently on BB
ARCADIO on CKD3b:
-with mild hyperkalemia that has resolved
-Cr improved from 2.1 to 1.8, then 2.2
-irbesartan stopped (also with hypotension)
-with non-AG met acidosis bicarb tabs started, may need bicarb infusion if bicarb does not improve
-renal following
Prostate cancer status post radiation
-Continue tamsulosin
-Not taking Casodex
Essential hypertension:
-with hypotension ARB stopped, coreg continues
-check orthostatic VS, may need midodrine
Hypercholesterolemia
-Continue statin
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
-Continue 20 units long-acting insulin
-Continue 15 units aspart before meals
-Continue Farxiga
-Insulin sliding scale
-Holding glimepiride
-neurontin on hold
Chronic neck/back pain
Hyponatremia, mild
DNR/DNI
DVT prophylaxis-heparin
RN updated
Pt's daughter updated extensively at bedside.
Total time spent on today's encounter was 50 minutes which included time spent in counseling the patient/family regarding diagnosis and treatment plan as listed above, goals of care, and symptom management. Case was discussed with nursing staff,
specialists, and care coordinators/case management. All labs and imaging personally reviewed by me. Remainder the time spent in detailed review of previous records, lab data, imaging, and other medical provider documentation.
Anticipated Discharge: > 48 hours
Subjective/Interval History
-
Date of Service: August 12, 2023
Pt denies CP/SOB.
Objective Data
-
Labs:
Laboratory Results
08/12/23
05:41
Sodium Pending
Potassium Pending
Chloride Pending
Carbon Dioxide Pending
BUN Pending
Creatinine Pending
Glucose Pending
Calcium Pending
Vital Signs:
Vital Signs
Temp Pulse Resp BP Pulse Ox
98.1 F 78 18 106/41 93
08/12/23 09:28 08/12/23 08:00 08/12/23 08:00 08/12/23 08:00 08/12/23 08:00
I&O
08/11/23 08/12/23 08/13/23
06:59 06:59 06:59
Intake Total 360 / 360 1735 / 1735
Output Total 1900 / 1900
Balance 360 / 360 -165 / -165
[2023-08-12 11:09] VITALS: BP 101/57; BP 109/86; BP 118/48; PULSE 78; PULSE 81; PULSE 82
--- NOTE | 2023-08-12 12:05 | W.PN.CARDCBS ---
Today's Communication / Plan
-
Possible micturition syncope without recurrence.
Continue to monitor blood pressures. Would except mild permissive hypertension to avoid orthostasis. Hold parameters for carvedilol. Monitor orthostatic vital signs.
Echo reviewed with patient and daughter showing preserved LV function.
Troponin possibly non-ND related troponin. Especially in light of echo without wall motion abnormalities and preserved LV function.
Pending his change in mental status workup, he could be considered for eventual ischemic evaluation likely outpatient. Would hold off of invasive cardiac catheterization for now given high risk of ATN given renal insufficiency.
Unclear if left bundle branch block is a new diagnosis for him.
Neurology evaluation ongoing. Creatinine peaked at 2.2 and is improved to 1.9 August 12, 2023. Irbesartan has been stopped.
Continue aspirin and statin.
Discussed with daughter at bedside
Impression / Plan
-
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
Impression:
Presentation with weakness, confusion
Altered mental status
ARCADIO on CKD
nonanion gap metabolic acidosis
Elevated troponin
Syncopal episode 08/11 AM
chronic LBBB
HTN
HLD
DM2
CKD
Prostate cancer s/p radiation
BPH
Echo August 11, 2023: EF 60-65% with no significant valvular disease.
Plan:
Possible micturition syncope without recurrence.
Continue to monitor blood pressures. Would except mild permissive hypertension to avoid orthostasis. Hold parameters for carvedilol. Monitor orthostatic vital signs.
Echo reviewed with patient and daughter showing preserved LV function.
Troponin possibly non-ND related troponin. Especially in light of echo without wall motion abnormalities and preserved LV function.
Pending his change in mental status workup, he could be considered for eventual ischemic evaluation likely outpatient. Would hold off of invasive cardiac catheterization for now given high risk of ATN given renal insufficiency.
Unclear if left bundle branch block is a new diagnosis for him.
Nephrology evaluation ongoing. Creatinine peaked at 2.2 and is improved to 1.9 August 12, 2023. Irbesartan has been stopped.
Neurology evaluation ongoing. MRI of the brain: moderate to severe bilateral temporal lobe volume loss consistent with severe chronic neurodegenerative disease possibly Alzheimer's. No MRI evidence of acute hemorrhage.
Continue aspirin and statin.
Discussed with daughter at bedside who understands and agrees with current status and plan of care.
Progress Note - Data Center Engineer
Subjective
Date of Service: August 12, 2023
Patient seen and examined. No chest pain or shortness of breath.
Objective
Labs:
08/11/23 08:40
Labs
Hgb 11.7 g/dL (13.0-18.0) L 08/11/23 08:40
Hct 33.3 % (39.0-52.0) L 08/11/23 08:40
Plt Count 227 10^3/uL (130-400) 08/11/23 08:40
PT 13.5 Sec (11.4-14.6) 08/11/23 08:40
INR 1.05 08/11/23 08:40
APTT 34.4 Sec (23.4-35.0) 08/11/23 08:40
Sodium 131 mmol/L (135-145) L 08/11/23 08:40
Potassium 4.5 mmol/L (3.5-5.1) 08/11/23 08:40
BUN 35 mg/dl (9-20) H 08/11/23 08:40
Creatinine 2.2 mg/dL (0.7-1.3) H 08/11/23 08:40
Glucose 123 mg/dl (70-99) H 08/11/23 08:40
Troponins
08/09/23 08/11/23 08/11/23
17:17 08:40 12:04
Troponin I 0.017 1.260 H* 0.953 H*
08/11/23 08/12/23
19:18 00:55
Troponin I 0.650 H* D 0.594 H*
Vital Signs and I&O:
Vital Signs
Temp Pulse Resp BP Pulse Ox
98.1 F 78 18 106/41 93
08/12/23 09:28 08/12/23 08:00 08/12/23 08:00 08/12/23 08:00 08/12/23 08:00
Vital Signs
Temp Pulse Resp BP Pulse Ox
98.1 F 78 18 106/41 93
08/12/23 09:28 08/12/23 08:00 08/12/23 08:00 08/12/23 08:00 08/12/23 08:00
Intake & Output
08/10/23 08/11/23 08/12/23 08/13/23
06:59 06:59 06:59 06:59
Intake Total 360 / 360 1735 / 1735
Output Total 1900 / 1900
Balance 360 / 360 -165 / -165
Physical Exam
Physical Exam
General: No acute distress, awake and alert
Neck: Negative JVD
Heart: Regular, Negative S3 positive S1/S2, Negative S4, No murmur
Lungs: CTA b/l, negative wheezes/rales/rhonchi
Abd: Positive BS, NT/ND, neg rebound/rigidity/guarding
Ext: Negative cyanosis/clubbing/edema
Neuro: nonfocal
[2023-08-12 12:20] LABS: Glucose - Point of Care 293 mg/dl (70-99)
--- NOTE | 2023-08-12 12:38 | W.PN.NEURO.1 ---
Today's Communication / Plan
-
MRI Cspine
Neuro Assessment/Plan
Assessment
82 year-old male with subacute change in mental status and generalized weakness with severe neck pain.� Most likely possibilities are a baseline mild cognitive impairment/early AD which can commonly deteriorate in situations with a significant
change in setting (in this case the trip to [place]); has also had one episode of fever--febrile illness could cause acute encephalopathy as well, but with no signs of headache, photophobia or meningismus so suspicion of meningitis/encephalitis is
very low; in addition his B12 is mildly low which can contribute to cognitive impairment. There is also concern for possible micturition syncope/orthostatic hypotension. MRI brain r/o stroke, raises concern for AD as cause for cognitive
impairment; reviewed at length with daughter at bedside. She reports generalized weakness, severe neck pain, incontinence; CT Cspine done 04/21/23 showed degenerative changes. Will check MRI Cspine.
MRI brain results:
'1. � No MRI evidence for acute infarct or intracranial hemorrhage.
2. � Moderate to severe bilateral temporal lobe volume loss. Moderate volume loss in the frontal lobes and parietal lobes. The findings suggest a SEVERE CHRONIC NEURODEGENERATIVE DISEASE (possibly Alzheimer's disease).
3. � Moderate white matter leukoaraiosis in the frontal and parietal lobes.'
Plan
Recommendations:�
-check MRI Cspine wo contrast
-reviewed MRI brain findings with dtr at bedside; reviewed need for outpatient neuropsychologic testing and consideration for memantine and/or donepezil and/or lecanemab.
-monitor for further fevers/signs of infection
-started B12 supplementation
Subjective/Objective
Subjective Data
Date of Service: August 12, 2023
remains confused, complains of severe neck pain and generalized weakness
Objective Data
Vital Signs
Temp Pulse Resp BP Pulse Ox
98.1 F 78 18 106/41 93
08/12/23 09:28 08/12/23 08:00 08/12/23 08:00 08/12/23 08:00 08/12/23 08:00
Lab Results
08/11/23 08:40
PT 13.5 Sec (11.4-14.6) 08/11/23 08:40
INR 1.05 08/11/23 08:40
APTT 34.4 Sec (23.4-35.0) 08/11/23 08:40
Sodium 131 mmol/L (135-145) L 08/11/23 08:40
Potassium 4.5 mmol/L (3.5-5.1) 08/11/23 08:40
BUN 35 mg/dl (9-20) H 08/11/23 08:40
Glucose 123 mg/dl (70-99) H 08/11/23 08:40
Calcium 8.7 mg/dl (8.4-10.2) 08/11/23 08:40
LDL Cholesterol, Calc 71 mg/dl 08/12/23 05:41
Vitamin B12 346 pg/ml (239-931) 08/11/23 08:40
Patient Allergies
No Known Allergies Allergy (Verified 08/09/23 13:19)
Physical Exam
Extended Neurological Exam
Memory: Other (confused, defers to daughter to answer questions, knows he is in the hospital, knows , unable to state name of president or town which is out of character for him)
Speech: Quality Unremarkable, Quantity Unremarkable and Rate of Production Unremarkable
Cranial Nerve II: Left Eye: Pupillary Reactivity Unremarkable and Pupillary Size Unremarkable
Cranial Nerve II: Right Eye: Pupillary Reactivity Unremarkable and Pupillary Size Unremarkable
Cranial Nerve V: Facial Sensation: Facial Sensation Unremarkable to Cold
Cranial Nerve VIII: Hearing: Unremarkable Hearing to Normal Conversational Volume
Muscle Strength, Overall: Other (at least 4+ throughout--unclear if related to diminished effort with his confusion)
Cold Sensation: Unremarkable
Touch Sensation: Unremarkable
[2023-08-12 13:13] LABS: Blood Urea Nitrogen 35 mg/dl (9-20); Calcium 8.2 mg/dl (8.4-10.2); Carbon Dioxide 17 mmol/L (22-30); Chloride 108 mmol/L (98-107); Estimated Creatinine Clearance 29 ml/min; Glucose 123 mg/dl (70-99); Potassium 4.7 mmol/L (3.5-5.1); Sodium 133 mmol/L (135-145); eGFR 34.79
[2023-08-12] MEDS: VITAMIN B-12 1000 MCG PO (13:16)
[2023-08-12] MEDS: NOVOLOG FLEXPEN 15 UNITS SC ×2 (13:25→18:28)
[2023-08-12] MEDS: NOVOLOG FLEXPEN-LOW RESISTANCE 3 UNITS SC (13:25)
[2023-08-12 15:00] VITALS: BP 114/52
--- NOTE | 2023-08-12 15:50 | W.PN.NEPH.PH ---
Today's Communication / Plan
-
change IVF to bicarb IVF
Assessment/Plan
-
IMP:
Altered mental status, likely metabolic encephalopathy unclear etiology
Hypotension
suspected micturition syncope
Mild dementia at baseline
Chronic kidney disease stage IIIb-baseline 1.7-2
mild met acidosis
Mild hyperkalemia
mild hyponatremia
Prostate cancer status post radiation
Essential hypertension
Hypercholesterolemia
Type 2 diabetes with mild microalbuminuria
Diabetic retinopathy
Diabetic neuropathy
Chronic neck/back pain
Plan:
A/w AMS, felt TME with baseline dementia , MRI pending report
CKD-cr seem close to baseline, cr better at 1.9
bland UA, check renal US for baseline
non oliguric with jin
BP are improving with IVF, normal cortisol level
due to evolving met acidosis change IVF to 1/2ns bicarb
may have autonomic neuropathy from DM, neg ortho vitals
holding all BP meds, also hold farxiga
mild hyponatremia-monitor
follow labs
MS improving to baseline per family, MRI shows Alzheimer changes
d/w daughter at bedside in detail
-
-
Date of Service: August 12, 2023
CC / HPI / ROS
-
Chief Complaint:
CKD, met acidosis
History of Present Illness:
cr better at 1.9 with IVF
BP improving neg orhto vitals
s/p jin and non oliguric
Review of Systems:
no cp or sob
confused baseline
Labs
-
Labs:
WBC 8.2 10^3/uL (4.8-10.8) 08/11/23 08:40
RBC 3.54 10^6/uL (4.70-6.10) L 08/11/23 08:40
Hgb 11.7 g/dL (13.0-18.0) L 08/11/23 08:40
Hct 33.3 % (39.0-52.0) L 08/11/23 08:40
Plt Count 227 10^3/uL (130-400) 08/11/23 08:40
Sodium 133 mmol/L (135-145) L 08/12/23 05:41
Potassium 4.7 mmol/L (3.5-5.1) 08/12/23 05:41
Chloride 108 mmol/L (98-107) H 08/12/23 05:41
Carbon Dioxide 17 mmol/L (22-30) L 08/12/23 05:41
BUN 35 mg/dl (9-20) H 08/12/23 05:41
Creatinine 1.9 mg/dL (0.7-1.3) H 08/12/23 05:41
eGFR 34.79 08/12/23 05:41
Glucose 123 mg/dl (70-99) H 08/12/23 05:41
Calcium 8.2 mg/dl (8.4-10.2) L 08/12/23 05:41
Albumin 3.8 g/dl (3.5-5.0) 08/11/23 08:40
Physical Exam
-
Vital Signs:
Vital Signs
Temp Pulse Resp BP Pulse Ox
98.0 F 79 18 114/52 100
08/12/23 15:00 08/12/23 15:00 08/12/23 15:00 08/12/23 15:00 08/12/23 15:00
Cardiovascular:: Regular rate and rhythm
Respiratory:: Bilateral: CTA
Lung Excursion:: Normal
Abdomen:: Nontender and Soft
Extremity Edema:: None: Bilateral:
Jin Catheter: Yes
[2023-08-12] MEDS: SODIUM BICARBONATE 1075 MEQ IV (17:00)
[2023-08-12] MEDS: LIPITOR 10 MG PO (17:02)
[2023-08-12] MEDS: FLOMAX 0.400000000000000022 MG PO (17:02)
[2023-08-12 18:20] LABS: Glucose - Point of Care 113 mg/dl (70-99)
[2023-08-12 19:00] VITALS: BP 131/55; BP 145/54; BP 146/118; PULSE 81; PULSE 83; PULSE 92
[2023-08-12 21:55] LABS: Glucose - Point of Care 79 mg/dl (70-99)
[2023-08-12] MEDS: LANTUS SC (22:00)
[2023-08-12 23:00] VITALS: BP 142/67
[2023-08-13 02:46] LABS: Glucose - Point of Care 168 mg/dl (70-99)
[2023-08-13] MEDS: SODIUM BICARBONATE 1075 MEQ IV ×2 (02:56→14:42)
[2023-08-13 03:22] VITALS: BP 128/66
[2023-08-13 07:32] LABS: Blood Urea Nitrogen 22 mg/dl (9-20); Calcium 7.6 mg/dl (8.4-10.2); Carbon Dioxide 20 mmol/L (22-30); Chloride 107 mmol/L (98-107); Estimated Creatinine Clearance 37 ml/min; Glucose 130 mg/dl (70-99); Potassium 4.4 mmol/L (3.5-5.1); Sodium 132 mmol/L (135-145); eGFR 46.19
[2023-08-13 07:55] VITALS: BP 138/61
[2023-08-13] MEDS: SODIUM BICARBONATE 650 MG PO ×2 (08:11→20:34)
[2023-08-13] MEDS: LOW STRENGTH ASPIRIN 81 MG PO (08:11)
[2023-08-13] MEDS: VITAMIN B-12 1000 MCG PO (08:11)
[2023-08-13] MEDS: COREG 6.25 MG PO ×2 (08:11→20:34)
[2023-08-13] MEDS: RESTASIS 0.05% OPHTHALMIC EMULSION 1 DROPS BOTH EYES ×2 (08:12→20:34)
[2023-08-13] MEDS: HEPARIN 5000 UNITS SC ×2 (08:12→20:32)
[2023-08-13] MEDS: FARXIGA PO (08:13)
[2023-08-13 08:48] LABS: Glucose - Point of Care 197 mg/dl (70-99)
[2023-08-13] MEDS: TYLENOL 650 MG PO (09:45)
[2023-08-13] MEDS: NOVOLOG FLEXPEN 15 UNITS SC ×3 (09:45→17:07)
[2023-08-13] MEDS: NOVOLOG FLEXPEN-LOW RESISTANCE 1 UNITS SC (09:45)
--- NOTE | 2023-08-13 12:14 | W.PN.HOSP.TC ---
Today's Communication/Plan
-
follow HCO3- and Cr in AM. Hopefully d/c tomorrow.
Assessment / Plan
Assessment / Plan
Gen: NAD, awake and alert, NCAT
Eyes: EOMI, PERRLA, no scleral icterus.
Neck: supple.
CV: RRR, +S1/S2, no m/r/g.
Resp: continues to remain CTAB anteriorly, no rales, wheezes, or rhonchi.
Abd: +BS, soft, NT, ND
Skin: No rashes.
Neuro: remains CN 2-12 intact, non-focal.
Psych: normal mood and affect.
08/09/23 18:33 Blood/Venous Blood Culture - Preliminary
No Growth in 72 hours- Final report to follow
08/09/23 17:17 Blood/Venous Blood Culture - Preliminary
No Growth in 72 hours- Final report to follow
08/10/23 10:22 Nasal Swab Influenza Types A & B (PRASAD) - Final
Negative for Influenza A & B, NAAT
Negative results must be combined with clinical observations
and patient history.
Nucleic Acid Amplification test (NAAT)performed on the
[email or web address] NOW platform.
CT brain: No evidence of acute intracranial abnormality.
CXR: Lungs are slightly hypoinflated. Given the degree of inflation, no evidence for consolidation. No evidence for pulmonary edema or pleural effusion.
MRI brain:
1. � No MRI evidence for acute infarct or intracranial hemorrhage.
2. � Moderate to severe bilateral temporal lobe volume loss. Moderate volume loss in the frontal lobes and parietal lobes. The findings suggest a SEVERE CHRONIC NEURODEGENERATIVE DISEASE (possibly Alzheimer's disease).
3. � Moderate white matter leukoaraiosis in the frontal and parietal lobes.
Echo: Normal left ventricular size, wall thickness and systolic function. No regional
�wall motion abnormalities are seen. LV ejection fraction is 60-65% by visual
�assessment.� Diastolic function indeterminate.
Altered mental status:
-only one fever or 100.4 F without recurrence
-Febrile illness could cause acute metabolic encephalopathy but but it is more likely due to waxing and waning dementia.
-No focal signs on examination to suggest CVA, CT brain NEG
-Urinalysis negative
-Chest x-ray unremarkable
-COVID/flu NEG
-BCxs NGTD
-gabapentin on hold
-MRI brain above, findings consistent with severe chronic neurodegenerative disease (possibly Alzheimer disease)
-neuro following
Elevated trop:
-NSTEMI vs non-[place] trop elevation as per cards
-cardiology following
-echo above, unremarkable
-currently on BB
ARCADIO on CKD3b:
-with mild hyperkalemia that has resolved
-irbesartan stopped (also with hypotension)
-pt was on normal saline earlier during hospitalization
-with non-AG met acidosis bicarb tabs started, then transitioned to bicarb infusion
-renal following
-Cr improving
Prostate cancer status post radiation
-Continue tamsulosin
-Not taking Casodex
Essential hypertension:
-with hypotension ARB stopped, coreg continues
-orthostatic VS negative 08/12/23PM
-BP has improved
Hypercholesterolemia
-Continue statin
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
-Holding glimepiride/neurontin
-Continue Lantus/premeal aspart
-SSI/accuchecks
-Continue Farxiga
Chronic neck/back pain
Hyponatremia, mild
DNR/DNI
DVT prophylaxis-heparin
RN updated
Pt's daughter updated extensively at bedside.
Anticipated Discharge: Within 24 hours
Subjective/Interval History
-
Date of Service: August 13, 2023
Objective Data
-
Labs:
Laboratory Results
08/13/23
05:59
Sodium 132 L
Potassium 4.4
Chloride 107
Carbon Dioxide 20 L
BUN 22 H
Creatinine 1.5 H
Glucose 130 H
Calcium 7.6 L
Vital Signs:
Vital Signs
Temp Pulse Resp BP Pulse Ox
98.1 F 89 20 138/61 97
08/13/23 07:55 08/13/23 07:55 08/13/23 07:55 08/13/23 07:55 08/13/23 08:10
I&O
08/12/23 08/13/23 08/14/23
06:59 06:59 06:59
Intake Total 1735 / 1735 2640 / 2640
Output Total 1900 / 1900 2900 / 2900
Balance -165 / -165 -260 / -260
[2023-08-13 12:15] LABS: Glucose - Point of Care 232 mg/dl (70-99)
[2023-08-13] MEDS: NOVOLOG FLEXPEN-LOW RESISTANCE 2 UNITS SC ×2 (13:01→17:07)
--- NOTE | 2023-08-13 13:31 | W.PN.NEPH.PH ---
Today's Communication / Plan
-
d/c plan
BMP in 1week
po bicarb at d/c
hold farxiga till next lab
resume ARB when BP increases
Assessment/Plan
-
IMP:
Altered mental status, likely metabolic encephalopathy unclear etiology
Hypotension
suspected micturition syncope
Mild dementia at baseline
Chronic kidney disease stage IIIb-baseline 1.7-2
mild met acidosis
Mild hyperkalemia
mild hyponatremia
Prostate cancer status post radiation
Essential hypertension
Hypercholesterolemia
Type 2 diabetes with mild microalbuminuria
Diabetic retinopathy
Diabetic neuropathy
Chronic neck/back pain
Plan:
A/w AMS, felt TME with baseline dementia , MRI pending report
CKD-cr seem close to baseline, cr better at 1.5
bland UA, MRD changes on renal US, also small complex cyst vs mass likely no further w/u needed with advanced dementia
non oliguric with jin , ok for VT
BP are improving with IVF and off meds, normal cortisol level
cotn po bicarb, d/c IVF today
hold farxiga till next labs in 1week
mild hyponatremia-monitor , encourage solute intake
MS improving to baseline per family, MRI shows Alzheimer changes
d/w daughter at bedside in detail
likely f/u with us after d/c
BMP in 1week
d/w daughter regarding over all prognosis and reports comfort is family priority and not looking for any invasive testing
-
-
Date of Service: August 13, 2023
CC / HPI / ROS
-
Chief Complaint:
CKD, met acidosis
History of Present Illness:
cr better at 1.5 with IVF
BP improving neg orhto vitals
s/p jin and non oliguric
met acidosis better at 20
sodium 132
Review of Systems:
no cp or sob
confused baseline
Labs
-
Labs:
WBC 8.2 10^3/uL (4.8-10.8) 08/11/23 08:40
RBC 3.54 10^6/uL (4.70-6.10) L 08/11/23 08:40
Hgb 11.7 g/dL (13.0-18.0) L 08/11/23 08:40
Hct 33.3 % (39.0-52.0) L 08/11/23 08:40
Plt Count 227 10^3/uL (130-400) 08/11/23 08:40
Sodium 132 mmol/L (135-145) L 08/13/23 05:59
Potassium 4.4 mmol/L (3.5-5.1) 08/13/23 05:59
Chloride 107 mmol/L (98-107) 08/13/23 05:59
Carbon Dioxide 20 mmol/L (22-30) L 08/13/23 05:59
BUN 22 mg/dl (9-20) H 08/13/23 05:59
Creatinine 1.5 mg/dL (0.7-1.3) H 08/13/23 05:59
eGFR 46.19 08/13/23 05:59
Glucose 130 mg/dl (70-99) H 08/13/23 05:59
Calcium 7.6 mg/dl (8.4-10.2) L 08/13/23 05:59
Albumin 3.8 g/dl (3.5-5.0) 08/11/23 08:40
Physical Exam
-
Vital Signs:
Vital Signs
Temp Pulse Resp BP Pulse Ox
98.1 F 89 20 138/61 97
08/13/23 07:55 08/13/23 07:55 08/13/23 07:55 08/13/23 07:55 08/13/23 08:10
Cardiovascular:: Regular rate and rhythm
Respiratory:: Bilateral: CTA
Lung Excursion:: Normal
Abdomen:: Nontender and Soft
Extremity Edema:: None: Bilateral:
Jin Catheter: Yes
--- NOTE | 2023-08-13 15:04 | W.PN.NEURO.1 ---
Today's Communication / Plan
-
neurosurgical eval for Cspine findings
Neuro Assessment/Plan
Assessment
82 year-old male with subacute change in mental status and generalized weakness with severe neck pain.� Most likely possibilities are a baseline mild cognitive impairment/early AD which can commonly deteriorate in situations with a significant
change in setting (in this case the trip to [place]); has also had one episode of fever--febrile illness could cause acute encephalopathy as well, but with no signs of headache, photophobia or meningismus so suspicion of meningitis/encephalitis is
very low; in addition his B12 is mildly low which can contribute to cognitive impairment. There is also concern for possible micturition syncope/orthostatic hypotension. MRI brain r/o stroke, raises concern for AD as cause for cognitive
impairment; reviewed at length with daughter at bedside yesterday. She reports generalized weakness, severe neck pain, incontinence; CT Cspine done 04/21/23 showed degenerative changes.
MRI Cspine showed:
1. � Moderate-sized left central disc herniation at C4/C5 causing MODERATE to SEVERE SPINAL CORD COMPRESSION and CENTRAL CANAL STENOSIS. Severe right neural foraminal narrowing at C4/C5.
2. � Moderate-sized central disc herniation at C3/C4 causing mild to moderate spinal cord compression and central canal stenosis.
3. � 3 mm anterolisthesis of C5 on C6. Moderate size left central disc herniation at C5/C6 causing mild spinal cord compression and central canal stenosis.
4. � Severe discogenic degenerative disease at C6/C7 with moderate-sized disc osteophyte complex causing mild spinal cord compression and central canal stenosis.
5. � Moderate to severe left-sided facet joint arthrosis at C2/C3 with mild surrounding bone marrow edema.
MRI brain results:
'1. � No MRI evidence for acute infarct or intracranial hemorrhage.
2. � Moderate to severe bilateral temporal lobe volume loss. Moderate volume loss in the frontal lobes and parietal lobes. The findings suggest a SEVERE CHRONIC NEURODEGENERATIVE DISEASE (possibly Alzheimer's disease).
3. � Moderate white matter leukoaraiosis in the frontal and parietal lobes.'
Plan
Recommendations:�
-consulted neurosurgery for Cspine findings
-previously reviewed MRI brain findings with patient's daughter; reviewed need for outpatient neuropsychologic testing and consideration for memantine and/or donepezil and/or lecanemab.
-monitor for further fevers/signs of infection
-continue B12 supplementation
Neurology will follow as needed. Please call with further questions.
Subjective/Objective
Subjective Data
Date of Service: August 13, 2023
reports ongoing severe neck pain
Objective Data
Vital Signs
Temp Pulse Resp BP Pulse Ox
98.1 F 89 20 138/61 97
08/13/23 07:55 08/13/23 07:55 08/13/23 07:55 08/13/23 07:55 08/13/23 08:10
Lab Results
08/11/23 08:40
08/13/23 05:59
PT 13.5 Sec (11.4-14.6) 08/11/23 08:40
INR 1.05 08/11/23 08:40
APTT 34.4 Sec (23.4-35.0) 08/11/23 08:40
Sodium 132 mmol/L (135-145) L 08/13/23 05:59
Potassium 4.4 mmol/L (3.5-5.1) 08/13/23 05:59
BUN 22 mg/dl (9-20) H 08/13/23 05:59
Glucose 130 mg/dl (70-99) H 08/13/23 05:59
Calcium 7.6 mg/dl (8.4-10.2) L 08/13/23 05:59
LDL Cholesterol, Calc 71 mg/dl 08/12/23 05:41
Vitamin B12 346 pg/ml (239-931) 08/11/23 08:40
Patient Allergies
No Known Allergies Allergy (Verified 08/09/23 13:19)
Physical Exam
Extended Neurological Exam
Mood & Affect: Other (pleasant but upon walking around the room, did not want full exam today)
Attention Span & Concentration: Awake, Alert and Interactive
Memory: Other (vague)
Tremor: Hand Tremor Absent and Head Tremor Absent
Involuntary Movement: None
Speech: Quality Unremarkable and Quantity Unremarkable
Cranial Nerves III, IV, : Extraocular Movement: Grossly Intact
Muscle Strength, Overall: Spontaneously Moves (up ambulating around the room)
Deep Tendon Reflexes: Unable to Assess
Touch Sensation: Unable to Assess
[2023-08-13 15:45] VITALS: BP 124/58
[2023-08-13 16:27] LABS: Glucose - Point of Care 212 mg/dl (70-99)
[2023-08-13] MEDS: LIPITOR 10 MG PO (17:07)
[2023-08-13] MEDS: FLOMAX 0.400000000000000022 MG PO (17:08)
[2023-08-13 21:34] LABS: Glucose - Point of Care 33 mg/dl (70-99)
[2023-08-13] MEDS: DEXTROSE 50% SYRINGE 12.5 GRAMS IV (21:36)
[2023-08-13] MEDS: LANTUS SC (21:37)
[2023-08-13 22:11] LABS: Glucose - Point of Care 86 mg/dl (70-99)
[2023-08-13 23:40] VITALS: BP 119/58
[2023-08-13 23:58] LABS: Glucose - Point of Care 41 mg/dl (70-99)
[2023-08-14] MEDS: DEXTROSE 50% SYRINGE 12.5 GRAMS IV ×2 (00:01→02:44)
[2023-08-14 00:36] LABS: Glucose - Point of Care 101 mg/dl (70-99)
[2023-08-14 02:32] LABS: Glucose - Point of Care 69 mg/dl (70-99)
[2023-08-14] MEDS: SODIUM BICARBONATE 1075 MEQ IV ×2 (02:44→12:32)
[2023-08-14 03:20] LABS: Glucose - Point of Care 131 mg/dl (70-99)
--- NOTE | 2023-08-14 03:25 | PTCARENOTE ---
By 3am pt had three hypoglycemic events. Responding to IV dextrose each time, but glucose drops in 2hrs, see accu checks. Pt is responsive to verbal stimulus, but drowsy. Refuses a snack/drink. Hypoglycemic events discussed with CARMELO Perez.
Advised to continue treating with IV dextrose as needed. Will continue monitoring pt.
[2023-08-14 05:23] LABS: Glucose - Point of Care 96 mg/dl (70-99)
[2023-08-14 07:00] VITALS: BP 122/63
[2023-08-14 07:16] LABS: Glucose - Point of Care 129 mg/dl (70-99)
[2023-08-14 07:48] LABS: Blood Urea Nitrogen 18 mg/dl (9-20); Calcium 8.1 mg/dl (8.4-10.2); Carbon Dioxide 25 mmol/L (22-30); Chloride 102 mmol/L (98-107); Estimated Creatinine Clearance 46 ml/min; Glucose 116 mg/dl (70-99); Potassium 3.9 mmol/L (3.5-5.1); Sodium 135 mmol/L (135-145); eGFR > 60.00
[2023-08-14] MEDS: NOVOLOG FLEXPEN-LOW RESISTANCE SC (08:02)
[2023-08-14] MEDS: COREG 6.25 MG PO ×2 (08:03→20:22)
[2023-08-14] MEDS: RESTASIS 0.05% OPHTHALMIC EMULSION 1 DROPS BOTH EYES ×2 (08:03→20:23)
[2023-08-14] MEDS: LOW STRENGTH ASPIRIN 81 MG PO (08:03)
[2023-08-14] MEDS: VITAMIN B-12 1000 MCG PO (08:04)
[2023-08-14] MEDS: SODIUM BICARBONATE 650 MG PO ×2 (08:04→20:22)
[2023-08-14] MEDS: HEPARIN 5000 UNITS SC ×2 (08:04→20:23)
[2023-08-14] MEDS: FARXIGA PO (08:06)
[2023-08-14 08:45] LABS: Glucose - Point of Care 188 mg/dl (70-99)
[2023-08-14] MEDS: NOVOLOG FLEXPEN SC (08:58)
[2023-08-14 11:15] LABS: Glucose - Point of Care 236 mg/dl (70-99)
--- NOTE | 2023-08-14 12:13 | W.PN.HOSP.TC ---
Today's Communication/Plan
-
Await neurosurgery eval
Assessment / Plan
Assessment / Plan
CT brain: No evidence of acute intracranial abnormality.
CXR: Lungs are slightly hypoinflated. Given the degree of inflation, no evidence for consolidation. No evidence for pulmonary edema or pleural effusion.
MRI brain:
1. � No MRI evidence for acute infarct or intracranial hemorrhage.
2. � Moderate to severe bilateral temporal lobe volume loss. Moderate volume loss in the frontal lobes and parietal lobes. The findings suggest a SEVERE CHRONIC NEURODEGENERATIVE DISEASE (possibly Alzheimer's disease).
3. � Moderate white matter leukoaraiosis in the frontal and parietal lobes.
Echo: Normal left ventricular size, wall thickness and systolic function. No regional
�wall motion abnormalities are seen. LV ejection fraction is 60-65% by visual
�assessment.� Diastolic function indeterminate.
Altered mental status:
-only one fever or 100.4 F without recurrence
-Febrile illness could cause acute metabolic encephalopathy but but it is more likely due to waxing and waning dementia.
-No focal signs on examination to suggest CVA, CT brain NEG
-Urinalysis negative
-Chest x-ray unremarkable
-COVID/flu NEG
-BCxs NGTD
-gabapentin on hold
-MRI brain above, findings consistent with severe chronic neurodegenerative disease (possibly Alzheimer disease)
-neuro following
Neck pain likely 2/2 MODERATE to SEVERE SPINAL CORD COMPRESSION and CENTRAL CANAL STENOSIS
-MR Cervical spine noted
-Bed rest
-Cervical collar ordered
-awaiting neurosurgery evaluation
Elevated trop:
-NSTEMI vs non-PA trop elevation as per cards
-cardiology following
-echo above, unremarkable
-currently on BB
ARCADIO on CKD3b:
-with mild hyperkalemia that has resolved
-irbesartan stopped (also with hypotension)
-pt was on normal saline earlier during hospitalization
-with non-AG met acidosis bicarb tabs started, then transitioned to bicarb infusion
-renal following
-Cr improving
Prostate cancer status post radiation
-Continue tamsulosin
-Not taking Casodex
Essential hypertension:
-with hypotension ARB stopped, coreg continues
-orthostatic VS negative
-BP has improved
Hypercholesterolemia
-Continue statin
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
-Holding glimepiride/neurontin
-Continue Lantus and hold premeal aspart
-SSI/accuchecks
-hold Farxiga
Hyponatremia, mild
DNR/DNI
DVT prophylaxis-heparin
Anticipated Discharge: > 48 hours
Subjective/Interval History
-
Date of Service: August 14, 2023
states of neck pain
Denies numbing or tingling in upper extremities
Denies dysuria
Denies urinary or fecal incontinence
Objective Data
-
Labs:
Laboratory Results
08/14/23
07:01
Sodium 135
Potassium 3.9
Chloride 102
Carbon Dioxide 25
BUN 18
Creatinine 1.2
Glucose 116 H
Calcium 8.1 L
Vital Signs:
Vital Signs
Temp Pulse Resp BP Pulse Ox
98.0 F 66 18 122/63 97
08/14/23 07:00 08/14/23 07:00 08/14/23 07:00 08/14/23 07:00 08/14/23 08:10
I&O
08/13/23 08/14/23 08/15/23
06:59 06:59 06:59
Intake Total 2640 / 2640 1820 / 1820
Output Total 2900 / 2900 3150 / 3150
Balance -260 / -260 -1330 / -1330
Physical Exam
-
General: Well Developed and No Apparent Distress
HEENT: Normocephalic, Atraumatic and Moist Mucous Membranes
Respiratory: Clear to Auscultation
Cardiac: Regular Rhythm and S1/S2; Negative Murmur, Rub or Gallop
GI: Soft, Nontender, Nondistended and Normal Bowel Sounds; Negative Organomegaly
Rectal: Deferred by Provider
Musculoskeletal: No Clubbing, No Cyanosis and No Edema
Skin: Negative Rash
Neuro: Awake, Alert, AO x 3, No Motor Deficits and Nonfocal/Grossly Intact; Negative Tremors, No Sensory Deficits, Slurred Speech or Facial Droop
Psych: Calm
Data Reviewed
-
Total Time Spent with Patient (in minutes): 54
[2023-08-14] MEDS: NOVOLOG FLEXPEN-LOW RESISTANCE 2 UNITS SC (12:32)
--- NOTE | 2023-08-14 13:27 | W.PN.NEPH.PH ---
Today's Communication / Plan
-
farxiga
Assessment/Plan
-
IMP:
Altered mental status, likely metabolic encephalopathy unclear etiology
Hypotension
suspected micturition syncope
Mild dementia at baseline
Chronic kidney disease stage IIIb-baseline 1.7-2
mild met acidosis
Mild hyperkalemia
mild hyponatremia
Prostate cancer status post radiation
Essential hypertension
Hypercholesterolemia
Type 2 diabetes with mild microalbuminuria
Diabetic retinopathy
Diabetic neuropathy
Chronic neck/back pain
Plan:
follow BMP
cap IVF
restart farxiga
no ARB yet
eventual voiding trial
-
-
Date of Service: August 14, 2023
CC / HPI / ROS
-
Chief Complaint:
CKD, met acidosis
History of Present Illness:
cr better at 1.2
acidosis resolved
BP stable
s/p jin and nonoliguric
met acidosis better at 20
sodium normal
Review of Systems:
no cp or sob
confused baseline
Labs
-
Labs:
WBC 8.2 10^3/uL (4.8-10.8) 08/11/23 08:40
RBC 3.54 10^6/uL (4.70-6.10) L 08/11/23 08:40
Hgb 11.7 g/dL (13.0-18.0) L 08/11/23 08:40
Hct 33.3 % (39.0-52.0) L 08/11/23 08:40
Plt Count 227 10^3/uL (130-400) 08/11/23 08:40
Sodium 135 mmol/L (135-145) 08/14/23 07:01
Potassium 3.9 mmol/L (3.5-5.1) 08/14/23 07:01
Chloride 102 mmol/L (98-107) 08/14/23 07:01
Carbon Dioxide 25 mmol/L (22-30) 08/14/23 07:01
BUN 18 mg/dl (9-20) 08/14/23 07:01
Creatinine 1.2 mg/dL (0.7-1.3) 08/14/23 07:01
eGFR > 60.00 08/14/23 07:01
Glucose 116 mg/dl (70-99) H 08/14/23 07:01
Calcium 8.1 mg/dl (8.4-10.2) L 08/14/23 07:01
Albumin 3.8 g/dl (3.5-5.0) 08/11/23 08:40
Physical Exam
-
Vital Signs:
Vital Signs
Temp Pulse Resp BP Pulse Ox
98.0 F 66 18 122/63 97
08/14/23 07:00 08/14/23 07:00 08/14/23 07:00 08/14/23 07:00 08/14/23 08:10
Cardiovascular:: Regular rate and rhythm
Respiratory:: Bilateral: CTA
Lung Excursion:: Normal
Abdomen:: Nontender and Soft
Bowel Sounds:: Normal
Extremity Edema:: None: Bilateral:
[2023-08-14] MEDS: DECADRON 8 MG IV (14:47)
[2023-08-14 15:00] VITALS: BP 145/62
--- NOTE | 2023-08-14 15:08 | CM ---
library manager reviewed patient's chart and will follow with patient progress and assist with discharge planning.
Plan; To follow with progress.
--- NOTE | 2023-08-14 15:10 | PN.CDI ---
CDI
- -
CDI:
Physician Documentation Request
Admit Date: 08/09/23 21:26
Dear Doctor Crys,
Please review the following and provide your response in the progress notes.
Clinical Indicators:
- 08/14 PN 'Elevated trop:NSTEMI vs non-AK trop elevation as per cards'
- 08/12 Cardiology 'Troponin possibly non-AK related troponin'
Laboratory Tests
08/09/23 08/11/23 08/11/23
17:17 08:40 12:04
Troponin I 0.017 1.260 H* 0.953 H*
08/11/23 08/12/23
19:18 00:55
Troponin I 0.650 H* D 0.594 H*
Please clarify the following regarding the documented elevated troponins:
Non-AK troponin elevation
NSTEMI
Other
Use of terms such as suspected, likely, concern for, or probable (associated with a specific diagnosis that is being evaluated, monitored, or treated as if it exists) are acceptable and can be coded in the inpatient setting, when documented at the
time of discharge.
Thank you,
Dylan Arzate RN
CDI Specialist
Please use your independent medical judgment in providing your response.
[2023-08-14 16:43] LABS: Glucose - Point of Care 298 mg/dl (70-99)
[2023-08-14] MEDS: FLOMAX 0.400000000000000022 MG PO (17:01)
[2023-08-14] MEDS: NOVOLOG FLEXPEN-LOW RESISTANCE 3 UNITS SC (17:01)
[2023-08-14] MEDS: LIPITOR 10 MG PO (17:01)
--- NOTE | 2023-08-14 17:29 | CON.NS ---
Consultation
-
Date/Time Consultation Performed: 08/14/2023, 17:30
Performing Provider: Diann
Chief Complaint
History of Present Illness
This is a neurosurgical consultation on this 82-year-old gentleman, with past medical history of mild dementia, chronic back pain/neck pain, prostate cancer status postradiation, chronic kidney disease, who presented for changes in mental status and
weakness. Patient was reportedly in his normal state of health before he went to [facility] in July 30, 2023, while in [facility], he became progressively more confused. He then cut his trip short, and returned after 1 week. He presented on 08/09/2023
with complaints of generalized weakness and inability to get up. He was noted to be shaking. He had an episode of urinary incontinence. Patient underwent medical and neurological workup.
Patient had an MRI of the brain to rule out stroke. Given the patient's severe neck pain, and generalized weakness, CT and MRI of the cervical spine was ordered.
MRI of the cervical spine demonstrated cervical spondylosis and spinal stenosis. Therefore neurosurgery was consulted.
The patient reports that he had had neck pain, couple months back, but currently denies any neck pain. Daughter does admit that due to his dementia, he may not require. He denies any radiating pain down extremities currently. He denies any
numbness, tingling, weakness of his hands. While he does have diffuse weakness, he denies having previous symptoms such as these, and has been able to ambulate and feels that he is getting stronger since he has been in the hospital.
According to his daughter, his mental status has returned to his baseline, prior to his trip to [facility]. She does admit that he was having memory issues prior to his trip.
Denies having any previous balance issues or frequent falls. Denies any bowel or bladder changes. Denies any dexterity changes or difficulties of his hands
Review of Systems
-
Attempted review of systems was performed, including constitutional, ENT, cardiovascular, respiratory, GI, , hematologic, endocrinologic, neurologic, musculoskeletal, and was negative, except for stated in HPI.
Medication and Allergies
Home Medications
Home Medications
Medication Instructions Recorded
aspirin 81 mg chewable tablet 81 mg PO DAILY Blood clot 07/15/21
prevention/tx
atorvastatin 10 mg tablet 10 mg PO QPM High cholesterol 07/15/21
bicalutamide 50 mg tablet 50 mg PO QPM Cancer 07/15/21
cyclosporine 0.05 % eye drops in a 1 drp BOTH EYES BID Eye condition 07/15/21
dropperette (Restasis)
gabapentin 100 mg capsule 100 mg PO BID Pain 07/15/21
glimepiride 1 mg tablet 1 mg PO DAILY Diabetes 07/15/21
insulin aspart U-100 100 unit/mL 15 units SC AC Diabetes 07/15/21
(3 mL) subcutaneous pen (Novolog
FlexPen U-100 Insulin aspart)
tamsulosin 0.4 mg capsule 0.4 mg PO QPM Urinary issue 07/15/21
carvedilol 6.25 mg tablet 6.25 mg PO BID 08/09/23
dapagliflozin propanediol 10 mg 10 mg PO DAILY 08/09/23
tablet (Farxiga)
insulin degludec 100 20 unit SC DAILY 08/09/23
unit-liraglutide 3.6 mg/mL(3 mL)
subcutaneous pen (Xultophy 100/3.6)
irbesartan 300 mg tablet 300 mg PO QPM 08/09/23
omega-3 acid ethyl esters 1 gram 1 g PO QPM 08/09/23
capsule
Allergies
Allergies
Allergy/AdvReac Type Severity Reaction Status Date / Time
No Known Allergies Allergy Verified 08/09/23 13:19
Physical Exam
-
Exam:
Awake, alert, conversant.
Pupils are equal and reactive to light. extraocular movements are full, without any nystagmus.
Face is symmetric
Tongue is midline
5/5 strength bilaterally in upper, and lower extremities, without drift.
Sensation to light touch intact in upper and lower extremities, in all dermatomes.
No evidence of Carina sign, no Babinski.
Gait not tested.
Head is normocephalic, atraumatic
Neck is supple
Breathing nonlabored
Abdomen is soft
Extremities are warm
PROCEDURE: MR Cervical Spine Without
CLINICAL INDICATION: Severe neck pain. Bilateral upper and lower extremity weakness. Incontinence. Prostate cancer. Chronic kidney disease. Metabolic encephalopathy.
TECHNIQUE: An MRI examination of the cervical spine was performed without intravenous contrast on a 1.5 Sosa magnet. Coronal STIR, sagittal T2 fat-suppressed, sagittal T2, sagittal STIR, sagittal T1, and axial T2 weighted imaging sequences were
obtained.
COMPARISON: Comparison is made with a CT examination of the cervical spine performed 04/21/2023.
FINDINGS:
There is mild cerebellar volume loss. There is a minimal amount of fluid in the inferior aspect of the mastoid air cells bilaterally.
There is straightening of the cervical spine with loss of the normal cervical lordosis. There is a mild kyphosis at C6/C7. There is 3 mm anterolisthesis of C5 on C6. There is mild loss of vertebral body height at C6 without evidence for acute
fracture. There is severe loss of intervertebral disc space height at C6/C7 with moderate-sized vertebral body endplate osteophytes and a mild amount of adjacent endplate bone marrow edema. There is moderate discogenic degenerative disease at C5/C6.
There is mild discogenic degenerative disease at C3/C4 and C4/C5.
Evaluation of the individual levels demonstrates:
At C1/C2: There are mild degenerative changes of the atlantodens articulation. There is mild thickening of the transverse ligament posterior to the dens. There is no central canal stenosis.
At C2/C3: There is a small central disc herniation. There is moderate to severe left-sided facet joint arthrosis with a mild amount of adjacent bone marrow edema. There is moderate left neural foraminal narrowing. There is no central canal stenosis
or right neural foraminal narrowing.
At C3/C4: There is a moderate-sized central disc herniation causing mild to moderate spinal cord compression and central canal stenosis. There is mild bilateral neural foraminal narrowing.
At C4/C5: There is a moderate size left central disc herniation causing moderate to severe spinal cord compression and central canal stenosis. There is severe right and mild to moderate left neural foraminal narrowing.
At C5/C6: There is 3 mm anterolisthesis. There is a moderate-sized broad-based left central disc herniation. There is mild ventral spinal cord compression and central canal stenosis. There is moderate bilateral neural foraminal narrowing.
At C6/C7: There is a moderate-sized diffuse disc-osteophyte complex causing mild ventral spinal cord compression and central canal stenosis. There is moderate right and mild left neural foraminal narrowing.
At C7/T1: There is a small central disc herniation. There is no central canal stenosis or neural foraminal narrowing.
At T1/T2, T2/T3, and T3/T4: There is no disc herniation, central canal stenosis, or neural foraminal narrowing.
There is no abnormal prevertebral soft tissue swelling. There is no evidence for acute paraspinal muscle edema. There is mild diffuse paraspinal muscle atrophy.
IMPRESSION:
1. � Moderate-sized left central disc herniation at C4/C5 causing MODERATE to SEVERE SPINAL CORD COMPRESSION and CENTRAL CANAL STENOSIS. Severe right neural foraminal narrowing at C4/C5.
2. � Moderate-sized central disc herniation at C3/C4 causing mild to moderate spinal cord compression and central canal stenosis.
3. � 3 mm anterolisthesis of C5 on C6. Moderate size left central disc herniation at C5/C6 causing mild spinal cord compression and central canal stenosis.
4. � Severe discogenic degenerative disease at C6/C7 with moderate-sized disc osteophyte complex causing mild spinal cord compression and central canal stenosis.
5. � Moderate to severe left-sided facet joint arthrosis at C2/C3 with mild surrounding bone marrow edema.
I personally reviewed the MRI of the cervical spine imaging performed on 08/13/2023. There is evidence of reversal of patient's cervical lordosis with multilevel cervical degenerative disc disease and spondylotic changes most severe at the 3 4,
C4-5. No obvious evidence of cord signal changes seen. Patient has a congenitally narrow spinal canal.
Problems
-
Problem Status Onset Code
Altered mental status R41.82
Assessment / Plan
-
An 82-year-old gentleman that presented with altered mental status while on a trip to [facility]. This is since resolved, according to the patient's daughter. Patient has multiple medical committees. Patient had complaints of neck pain, which prompted
MRI of the cervical spine. MRI of the cervical spine demonstrated multilevel cervical degenerative spondylotic changes, with mild impingement of the thecal sac/cord, without any obvious evidence of signal change in the cord. Patient does not have
any symptoms, or examination findings consistent with cervical myelopathy. He reports currently that his neck pain has resolved. He is wearing a soft collar for comfort.
At this time, lengthy discussion was held with the patient's daughter at bedside. I did explain, that should he fail physical therapy and if he continues to have neck pain, then we can consider surgery as an outpatient. However, patient's daughter
reports that he and she would not want to proceed with surgical intervention. Given this, I am recommending symptomatic pain control for his neck pain with anti-inflammatories as tolerated given his renal failure, heat/ice therapy, and physical
therapy.
Should his symptoms change or worsen, or should family wish to reconsider surgical dimension, he can follow-up with me as an outpatient.
Patient can go home per my specialty: Today
--- NOTE | 2023-08-14 19:01 | W.PN.CARDCBS ---
Today's Communication / Plan
-
Continue carvedilol
Stop aspirin
Do not restart irbesartan
We will sign off, please call if questions
Impression / Plan
-
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
Impression:
Suspected micturition syncope
Baseline dementia with toxic metabolic encephalopathy
ARCADIO on CKD, suspect related to both ARB therapy and possibly bladder outlet obstruction
nonanion gap metabolic acidosis
Elevated troponin
Syncopal episode 08/11 AM
chronic LBBB
HTN
HLD
DM2
CKD
Prostate cancer s/p radiation
BPH
Cervical spine disease with some impingement on thecal sac/cord
Echo August 11, 2023: EF 60-65% with no significant valvular disease.
Plan:
He seems stable from a cardiac standpoint.
Renal function has normalized. Suspect this is related to withdrawal of ARB and possibly to relief of bladder outlet obstruction. He currently does not have a Cole in place.
Defer management of possible bladder outlet obstruction to hospitalist and nephrology.
He has significant cervical spine disease and is being followed by neurosurgery. Conservative therapy is planned.
D-dimer had been obtained earlier and was somewhat elevated. This was prior to elucidation of issues with his renal function. Likelihood of pulmonary embolus is small, given ARCADIO do not feel it needs to be pursued further at this time.
Stop aspirin.
Would continue carvedilol and continue to avoid ARB. His echocardiogram was overall reassuring.
We will sign off, please call if questions.
Progress Note - Sugar Cane Grower
Subjective
Date of Service: August 14, 2023:
Late entry, patient seen at 1130 today.
Allergies none
Home medications aspirin 81 mg a day, atorvastatin 10 mg a day, carvedilol 6.25 twice daily, dapagliflozin 10 mg a day gabapentin, glimepiride 1 mg daily insulin, irbesartan 300 mg daily Fish oil and tamsulosin 7
Current medications: Subcu heparin, carvedilol 6.25 twice daily, dapagliflozin resumed, aspirin 81 mg a day, atorvastatin 10 mg a day, tamsulosin 0.4 mg daily insulin, bicarbonate
PMH/PSH/FH/SH: Reviewed
Review of systems not readily obtainable
BUN and creatinine are 18 and 1.2, potassium 3.9, bicarb 25
Cervical spine MRI, severe cervical stenosis
Objective
Labs:
08/11/23 08:40
08/14/23 07:01
Labs
Hgb 11.7 g/dL (13.0-18.0) L 08/11/23 08:40
Hct 33.3 % (39.0-52.0) L 08/11/23 08:40
Plt Count 227 10^3/uL (130-400) 08/11/23 08:40
PT 13.5 Sec (11.4-14.6) 08/11/23 08:40
INR 1.05 08/11/23 08:40
APTT 34.4 Sec (23.4-35.0) 08/11/23 08:40
Sodium 135 mmol/L (135-145) 08/14/23 07:01
Potassium 3.9 mmol/L (3.5-5.1) 08/14/23 07:01
BUN 18 mg/dl (9-20) 08/14/23 07:01
Creatinine 1.2 mg/dL (0.7-1.3) 08/14/23 07:01
Glucose 116 mg/dl (70-99) H 08/14/23 07:01
Troponins
08/11/23 08/12/23
19:18 00:55
Troponin I 0.650 H* D 0.594 H*
Vital Signs and I&O:
Vital Signs
Temp Pulse Resp BP Pulse Ox
36.7 C 74 18 145/62 97
08/14/23 15:00 08/14/23 15:00 08/14/23 15:00 08/14/23 15:00 08/14/23 15:00
Vital Signs
Temp Pulse Resp BP Pulse Ox
36.7 C 74 18 145/62 97
08/14/23 15:00 08/14/23 15:00 08/14/23 15:00 08/14/23 15:00 08/14/23 15:00
Intake & Output
08/12/23 08/13/23 08/14/23 08/15/23
07:59 07:59 07:59 07:59
Intake Total 1735 / 1735 2640 / 2640 1820 / 1820 360 / 360
Output Total 1900 / 1900 2900 / 2900 3150 / 3150 150 / 150
Balance -165 / -165 -260 / -260 -1330 / -1330 210 / 210
Physical Exam
Physical Exam
145/62,, 119/58, pulse 74
Pleasantly confused, head neck exam unremarkable, lungs are clear, cardiac exam regular rate and rhythm without murmurs or gallops JVD okay, abdomen benign, extremities without much edema neuro nonfocal
[2023-08-14 22:10] LABS: Glucose - Point of Care 405 mg/dl (70-99)
[2023-08-14] MEDS: LANTUS 0.200000000000000011 UNITS SC (22:46)
[2023-08-14 23:00] VITALS: BP 143/59
[2023-08-14 23:14] LABS: Glucose 431 mg/dl (70-99)
[2023-08-14] MEDS: NOVOLOG FLEXPEN 5 UNITS SC (23:34)
[2023-08-15 01:38] LABS: Glucose - Point of Care 332 mg/dl (70-99)
--- NOTE | 2023-08-15 01:44 | GLUCOSE ---
SITUATION: HS accucheck RR high. Stat glucose done which was 431. Text to house FIRE BOSS. Lantus given as ordered. Novolog 5 units sq also given. Repeat accucheck at 0130 was 332-notified house FIRE BOSS-no new orders.
[2023-08-15 06:30] LABS: Vitamin B1, Whole Blood 100 nmol/L (70-180)
[2023-08-15 07:00] VITALS: BP 148/63
[2023-08-15 07:20] LABS: Glucose - Point of Care 264 mg/dl (70-99)
[2023-08-15] MEDS: NOVOLOG FLEXPEN-LOW RESISTANCE 3 UNITS SC (08:56)
[2023-08-15] MEDS: COREG 6.25 MG PO (08:57)
[2023-08-15] MEDS: RESTASIS 0.05% OPHTHALMIC EMULSION 1 DROPS BOTH EYES (08:57)
[2023-08-15] MEDS: HEPARIN 5000 UNITS SC (08:57)
[2023-08-15] MEDS: VITAMIN B-12 1000 MCG PO (08:57)
[2023-08-15] MEDS: FARXIGA 10 MG PO (08:57)
[2023-08-15] MEDS: SODIUM BICARBONATE 650 MG PO (08:57)
[2023-08-15 09:05] LABS: Blood Urea Nitrogen 22 mg/dl (9-20); Calcium 8.5 mg/dl (8.4-10.2); Carbon Dioxide 22 mmol/L (22-30); Chloride 105 mmol/L (98-107); Estimated Creatinine Clearance 39 ml/min; Glucose 230 mg/dl (70-99); Potassium 4.6 mmol/L (3.5-5.1); Sodium 135 mmol/L (135-145); eGFR 50.18
--- NOTE | 2023-08-15 09:58 | CM ---
Addendum entered by Shira Beltrán 08/15/23 12:32:
Patient did well with PT and plan is to home with visiting nurses, patient is agreeable to VN, VN liaison contacted.
Original Note:
Chart reviewed and will await updated PT/OT notes for discharge planning needs for patient.
Plan; Await updated PT/OT notes on patient.
[2023-08-15 11:06] VITALS: BP 148/63; PULSE 80
--- NOTE | 2023-08-15 11:41 | W.PN.NEPH.PH ---
Today's Communication / Plan
-
follow BMP
Assessment/Plan
-
IMP:
Altered mental status, likely metabolic encephalopathy unclear etiology
Hypotension
suspected micturition syncope
Mild dementia at baseline
Chronic kidney disease stage IIIb-baseline 1.7-2
mild met acidosis
Mild hyperkalemia
mild hyponatremia
Prostate cancer status post radiation
Essential hypertension
Hypercholesterolemia
Type 2 diabetes with mild microalbuminuria
Diabetic retinopathy
Diabetic neuropathy
Chronic neck/back pain
Plan:
follow BMP
cap IVF
back on farga
no ARB at this time
-
-
Date of Service: August 15, 2023
CC / HPI / ROS
-
Chief Complaint:
CKD, met acidosis
History of Present Illness:
cr stable at 1.4
acidosis resolved
BP stable
s/p jin and nonoliguric
met acidosis better at 22
sodium normal
Review of Systems:
no cp or sob
confused baseline
Labs
-
Labs:
WBC 8.2 10^3/uL (4.8-10.8) 08/11/23 08:40
RBC 3.54 10^6/uL (4.70-6.10) L 08/11/23 08:40
Hgb 11.7 g/dL (13.0-18.0) L 08/11/23 08:40
Hct 33.3 % (39.0-52.0) L 08/11/23 08:40
Plt Count 227 10^3/uL (130-400) 08/11/23 08:40
Sodium 135 mmol/L (135-145) 08/15/23 06:46
Potassium 4.6 mmol/L (3.5-5.1) 08/15/23 06:46
Chloride 105 mmol/L (98-107) 08/15/23 06:46
Carbon Dioxide 22 mmol/L (22-30) 08/15/23 06:46
BUN 22 mg/dl (9-20) H 08/15/23 06:46
Creatinine 1.4 mg/dL (0.7-1.3) H 08/15/23 06:46
eGFR 50.18 08/15/23 06:46
Glucose 230 mg/dl (70-99) H 08/15/23 06:46
Calcium 8.5 mg/dl (8.4-10.2) 08/15/23 06:46
Albumin 3.8 g/dl (3.5-5.0) 08/11/23 08:40
Physical Exam
-
Vital Signs:
Vital Signs
Temp Pulse Resp BP Pulse Ox
97.9 F 80 18 148/63 95
08/15/23 07:00 08/15/23 08:57 08/15/23 07:00 08/15/23 08:57 08/15/23 07:00
Cardiovascular:: Regular rate and rhythm
Respiratory:: Bilateral: Coarse
Lung Excursion:: Normal
Abdomen:: Nontender and Soft
Bowel Sounds:: Normal
Extremity Edema:: None: Bilateral:
[2023-08-15 11:48] LABS: Glucose - Point of Care 394 mg/dl (70-99)
[2023-08-15] MEDS: NOVOLOG FLEXPEN 15 UNITS SC (11:49)
[2023-08-15] MEDS: NOVOLOG FLEXPEN-LOW RESISTANCE 5 UNITS SC (11:50)
--- NOTE | 2023-08-15 12:15 | W.PN.HOSP.TC ---
Today's Communication/Plan
-
Restart Premeal insulin
DC Neurontin and glimepiride
Outpatient BMP
DC home
Assessment / Plan
Assessment / Plan
CT brain: No evidence of acute intracranial abnormality.
CXR: Lungs are slightly hypoinflated. Given the degree of inflation, no evidence for consolidation. No evidence for pulmonary edema or pleural effusion.
MRI brain:
1. � No MRI evidence for acute infarct or intracranial hemorrhage.
2. � Moderate to severe bilateral temporal lobe volume loss. Moderate volume loss in the frontal lobes and parietal lobes. The findings suggest a SEVERE CHRONIC NEURODEGENERATIVE DISEASE (possibly Alzheimer's disease).
3. � Moderate white matter leukoaraiosis in the frontal and parietal lobes.
Echo: Normal left ventricular size, wall thickness and systolic function. No regional
�wall motion abnormalities are seen. LV ejection fraction is 60-65% by visual
�assessment.� Diastolic function indeterminate.
Altered mental status:
-only one fever or 100.4 F without recurrence
-Febrile illness could cause acute metabolic encephalopathy but but it is more likely due to waxing and waning dementia.
-No focal signs on examination to suggest CVA, CT brain NEG
-Urinalysis negative
-Chest x-ray unremarkable
-COVID/flu NEG
-BCxs NGTD
-gabapentin stopped.
-MRI brain above, findings consistent with severe chronic neurodegenerative disease (possibly Alzheimer disease)
-neuro following
Neck pain likely 2/2 MODERATE to SEVERE SPINAL CORD COMPRESSION and CENTRAL CANAL STENOSIS
-MR Cervical spine noted
-PT/OT. s/p dose of decadron.
-Cervical collar ordered
-NSG correspondence noted-pt and family against any surgical intervention. Plan for medical management. Pain control. Ice pack. OP f/u.
non-[place] trop elevation
-cardiology following
-echo above, unremarkable
-currently on BB
ARCADIO on CKD3b:
-with mild hyperkalemia that has resolved
-irbesartan stopped (also with hypotension)
-pt was on normal saline earlier during hospitalization
-with non-AG met acidosis s/p bicarb infusion
-renal following
-Cr bumped to 1.4 today. OP f/u.
Prostate cancer status post radiation
-Continue tamsulosin
Essential hypertension:
-with hypotension ARB stopped, coreg continues
-orthostatic VS negative
-BP has improved-OP f/u for further management. Avoid hypotension
Hypercholesterolemia
-Continue statin
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
-DC glimepiride/neurontin
-Continue Lantus and premeal aspart
-SSI/accuchecks
-cont Farxiga
Hyponatremia, mild
DNR/DNI
DVT prophylaxis-heparin
Called [id number] over the phone x2 did not orange picker
Discussed with patient daughter at bedside in detail. Discussed discharge planning and daughter agreed with discharge today.
Discussed case with nephrology okay for discharge with outpatient follow-up
More than 30 minutes spent in discharge including
Final examination of the patient
Summarizing hospital stay
Instructions for continuing care to all relevant caregivers
Preparation of discharge records, prescriptions, and referral forms
Total time spent (in minutes): 52
Anticipated Discharge: Today
Subjective/Interval History
-
Date of Service: August 15, 2023
states improvement in neck pain with cervical collar
tolerating diet
Objective Data
-
Labs:
Laboratory Results
08/15/23
06:46
Sodium 135
Potassium 4.6
Chloride 105
Carbon Dioxide 22
BUN 22 H
Creatinine 1.4 H
Glucose 230 H
Calcium 8.5
Vital Signs:
Vital Signs
Temp Pulse Resp BP Pulse Ox
97.9 F 80 18 148/63 95
08/15/23 07:00 08/15/23 08:57 08/15/23 07:00 08/15/23 08:57 08/15/23 07:00
I&O
08/14/23 08/15/23 08/16/23
06:59 06:59 06:59
Intake Total 1820 / 1820 840 / 840
Output Total 3150 / 3150 150 / 150
Balance -1330 / -1330 690 / 690
Physical Exam
-
General: Well Developed and No Apparent Distress
HEENT: Normocephalic, Atraumatic and Moist Mucous Membranes
Respiratory: Clear to Auscultation
Cardiac: Regular Rhythm and S1/S2; Negative Murmur, Rub or Gallop
GI: Soft, Nontender, Nondistended and Normal Bowel Sounds; Negative Organomegaly
Rectal: Deferred by Provider
Musculoskeletal: No Clubbing, No Cyanosis and No Edema
Skin: Negative Rash
Neuro: Awake, No Motor Deficits and Nonfocal/Grossly Intact; Negative Tremors, No Sensory Deficits, Slurred Speech or Facial Droop
Psych: Calm and Apparent Dementia
--- NOTE | 2023-08-15 12:42 | PTCARENOTE ---
spoke to pt daughter at bedside reviewed pt condition and plan of care. daughter wants to know when he will be discharged. reviewed PT note and explained the hosp needs to see him.
--- NOTE | 2023-08-15 13:35 | W.DCSUMMARY ---
Discharge Summary
Discharge Data
Date of Admission: 08/09/23
Date of Discharge: 08/15/23
-
Pending Results: No
Hospital Course
82-year-old male past medical history of diabetes, hypertension, BPH, prostate cancer, CKD, hyperlipidemia who presented also mental status. Patient was taken off gabapentin. Patient underwent infectious workup was found to be negative. Patient
underwent extensive brain imaging study including MRI of the brain which showed chronic neurodegenerative disease possible Alzheimer dementia. CT of the brain was negative for acute pathology. Chest x-ray was hyperinflated. No evidence of edema
pleural effusion. Patient was also complaining of neck pain and underwent MRI of the cervical spine. MRI showed moderate-sized left central disc herniation at C4/C5 causing�MODERATE to SEVERE SPINAL CORD COMPRESSION and CENTRAL CANAL STENOSIS.
Severe right neural foraminal narrowing at C4/C5. oderate-sized central disc herniation at C3/C4 causing mild to moderate spinal cord compression and central canal stenosis. Patient received 1 dose of Decadron and cervical collar was placed. Of
note only complaint patient had was cervical pain. Patient did not have any other numbing or tingling or motor weakness in bilateral upper and lower extremities. Patient did not have any urinary fecal incontinence. Patient was eval by
neurosurgery and stated of MRI of the cervical spine demonstrated multilevel cervical degenerative spondylotic changes,� patient and family refused against any surgical intervention. Neurosurgery recommended symptomatic management and pain control.
Patient was also found to ARCADIO on CKD. Creatinine slightly improved. Patient was taken off ARB. Patient also [place] troponin was seen by cardiology. Patient was taken off aspirin. Patient had episode of syncope which was seems secondary to
micturition related. Patient had episode of hypoglycemia. Glimepiride was discontinued. Patient mentation was back to baseline per patient and family present bedside. Patient be discharged home with recommendation to have follow-up with
nephrology, neurosurgery if surgery desired and primary doctor.
Discharge Plan
-
Patient Disposition: Home with Home Care
Discharge Diagnosis/Procedures: Altered mental status likely secondary to metabolic encephalopathy versus worsening of underlying dementia
Neck pain secondary to moderate to severe spinal cord compression and central canal stenosis
Non-PA troponin elevation
ARCADIO on CKD stage IIIb
Mild hyponatremia
Nonanion gap metabolic acidosis
Mild hyperkalemia
Diabetes mellitus with episode of hypoglycemia and hyperglycemia
Suspected micturition syncope
Condition: Fair
Diet: Diabetic, Carb Controlled
Activity: With assistance and As tolerated
Driving Restrictions: No driving
Blood Work: Recommend BMP in 1 week via primary doctor.
Stop these medications:: Aspirin, gabapentin, glimepiride and irbersartan was stopped.
Referrals:
Ld Russell MD [Family Provider] - in less than 1 week
Jonny Boothe DO [Active] - in one to two weeks
Saadia Tidwell MD [Active] - None
Prescriptions:
New
cyanocobalamin (vitamin B-12) 1,000 mcg Tablet
1,000 mcg PO DAILY Qty: 30 0RF
Continued
bicalutamide 50 MG tablet
50 mg PO QPM
Patient Comments:
08/09/2023: filled 07/26/23, 28 tabs for 28 days from [facility]. Family unsure if pt stopped medication on his own, family believes pt is supposed to be on this medication.
atorvastatin 10 MG tablet
10 mg PO QPM
tamsulosin 0.4 MG capsule
0.4 mg PO QPM
insulin aspart U-100 [Novolog FlexPen U-100 Insulin] 300 UNITS/3 ML insulin pen
15 units SC AC
cyclosporine [Restasis] 10 DROPS dropperette
1 drp BOTH EYES BID
carvedilol 6.25 mg tablet
6.25 mg PO BID
omega-3 acid ethyl esters 1 gram capsule
1 g PO QPM
dapagliflozin propanediol [Farxiga] 10 mg tablet
10 mg PO DAILY
Xultophy 100/3.6 100 unit-3.6 mg /mL (3 mL) insulin pen
20 unit SC DAILY
Discontinued
glimepiride 1 MG tablet
1 mg PO DAILY
aspirin 81 MG tablet,chewable
81 mg PO DAILY
gabapentin 100 MG capsule
100 mg PO BID
irbesartan 300 mg tablet
300 mg PO QPM
Discharge Orders:
Discharge Patient (As Directed); Ordered 08/15/23
Ordered By: Ky Spangler
Discharge Date and Time
Discharge Date/Time: 08/15/23 14:39
--- NOTE | 2023-08-15 14:20 | PTCARENOTE ---
pt discharged by flow nurse.
== END 2023-08-15 14:39 | disposition home health service (06) | DRG 56 ==
LOC: 4 WEST ACU 21:26
PROVIDERS: Internal Medicine; Physician Assistant; ADMITTING PHYSICIAN Hospitalist; ATTENDING PHYSICIAN Hospitalist; CONSULT PHYSICIAN Student in an Organized Health Care Education/Training Program; EMERGENCY PHYSICIAN Emergency Medicine; FAMILY PHYSICIAN Family Medicine; OTHER PHYSICIAN Internal Medicine; OTHER PHYSICIAN Internal Medicine Cardiovascular Disease; OTHER PHYSICIAN Neurological Surgery
DX: G30.9 Alzheimer's disease, unspecified (principal); G93.41 Metabolic encephalopathy; E87.1 Hypo-osmolality and hyponatremia; M50.021 Cervical disc disorder at C4-C5 level with myelopathy; I5A Non-ischemic myocardial injury (non-traumatic); N17.9 Acute kidney failure, unspecified; E87.20 Acidosis, unspecified; M47.12 Other spondylosis with myelopathy, cervical region; R63.0 Anorexia; E11.22 Type 2 diabetes mellitus with diabetic chronic kidney disease; E11.319 Type 2 diabetes mellitus with unspecified diabetic retinopathy without macular edema; E11.40 Type 2 diabetes mellitus with diabetic neuropathy, unspecified; E11.649 Type 2 diabetes mellitus with hypoglycemia without coma; F02.80 Dementia in other diseases classified elsewhere, unspecified severity, without behavioral disturbance, psychotic disturbance, mood disturbance, and anxiety; E11.65 Type 2 diabetes mellitus with hyperglycemia; E78.00 Pure hypercholesterolemia, unspecified; N18.32 Chronic kidney disease, stage 3b; I12.9 Hypertensive chronic kidney disease with stage 1 through stage 4 chronic kidney disease, or unspecified chronic kidney disease; G89.29 Other chronic pain; M43.12 Spondylolisthesis, cervical region; M48.02 Spinal stenosis, cervical region; I95.9 Hypotension, unspecified; R39.198 Other difficulties with micturition; R32 Unspecified urinary incontinence; E87.5 Hyperkalemia; N40.0 Benign prostatic hyperplasia without lower urinary tract symptoms; I44.7 Left bundle-branch block, unspecified; Z66 Do not resuscitate; Z87.891 Personal history of nicotine dependence; Z85.46 Personal history of malignant neoplasm of prostate; Z92.3 Personal history of irradiation; Z79.4 Long term (current) use of insulin; Z79.84 Long term (current) use of oral hypoglycemic drugs; Z79.52 Long term (current) use of systemic steroids; Z79.82 Long term (current) use of aspirin; Z11.52 Encounter for screening for COVID-19
CPT/HCPCS: 70450; 70553; 71046; 72141; 76775; 80048; 80053; 80061; 81003; 82533; 82570; 82607; 82947; 82962; 83036; 83605; 84145; 84156; 84425; 84443; 84484; 85025; 85027; 85379; 85610; 85730; 87040; 87502; 87811; 93005; 93306; 94760; 97116; 97163; 99285; A9575; J7030

== ENCOUNTER 2023-08-21 01:27 | Observation (INO) | payer OTHER, SELFPAY ==
[2023-08-20 20:12] VITALS: BP 147/80; BP 154/83
[2023-08-20 20:31] VITALS: BP 145/80
[2023-08-20 20:34] VITALS: BMI 25.1
--- NOTE | 2023-08-20 20:37 | ED.GENMED ---
History of Present Illness
General
Chief Complaint: Chest Pain
Source: patient and family
Time Seen by Provider: 08/20/23 20:26
Travel History
Have you had any contact with someone who has COVID-19?: No
Do you have any symptoms of coronavirus? Fever > 100 degrees, chills, cough, shortness of breath, sore throat, loss of taste or smell, muscle aches, or headache?: No
History of Present Illness
History of Present Illness:
82-year-old male presents emergency room complaining of sudden onset of severe chest pain radiating to the back and radiating up into the neck which she describes as a tearing pain. Pain is severe in nature. No shortness of breath. Patient was
laying in bed when the pain started.
Past History
Past History
ED Past Medical History: Cancer (Prostate CA with Radiation), HTN, Hypercholesterolemia and IDDM
ED Past Surgical History: Appendectomy
Social History
Tobacco: Former smoker
Alcohol: None
Personal:
Living: with family
Phy Exam
Physical Exam
Physical Exam:
General: Awake, Alert, Oriented X3. No acute distress.
Vitals: moderate hypertension, borderline tachycardia
Head: Atraumatic
Eyes: Pupils equal, EOMI
Throat: Airway intact, no exudates
Neck: Trachea midline
Lungs: Clear and equal b/l
Heart: Regular rate, no murmurs
Abd: Soft, Nontender, No pulsatile mass
Neuro: Cranial nerves intact, muscle strength equal bilaterally
Skin: Warm, dry, no rash
Extremities: pulses equal b/l, no edema.
Scores
Heart Score for Chest Pain Patients
STEMI patient?: No
History: Moderately Suspicious
ECG: Nonspecific Repolarization
Age: >/= 65 years
Risk Factors: >/= 3 Risk Factors or History of CAD
Troponin: >1 - <3 x Normal Limit
Heart Score for Chest Pain Patients: 7
Heart Score Risk: 72.7 % MACE over next 6 weeks
Course
Orders/Labs/Results
Orders:
Orders
08/20/23 20:13
EKG [Electrocardiogram (*1)] Urgent
Reason for Study: Chest Pain
EKG- Treatment ONCE
08/20/23 20:36
CT Chest Angio W/wo Iv Contras Urgent
Comment:
Reason For Exam: tearing chest/back pain eval for dissection
08/20/23 20:37
CR Chest Portable - 1 View Urgent
Comment:
Reason For Exam: chest pain
Reason Study Needs to be Portable: Patient Unstable
08/20/23 20:41
Complete Blood Count/With Diff Urgent
Comprehensive Metabolic Panel Urgent
Magnesium Urgent
Prothrombin Time Urgent
Troponin I Urgent
08/20/23 20:43
Fentanyl Citrate/Pf [Sublimaze] 50 mcg IV NOW STA
08/20/23 23:04
Troponin I Urgent
Abnormal Lab Results
08/20/23 08/20/23
20:41 23:04
RBC 3.67 L 10^6/uL
(4.70-6.10)
Hgb 12.1 L g/dL
(13.0-18.0)
Hct 33.9 L %
(39.0-52.0)
MCH 33.0 H pg
(27.0-31.0)
Abs Immat Gran (auto) 0.1 H 10^3/uL
(0-0.05)
Absolute Neuts (auto) 7.5 H 10^3/uL
(1.4-6.5)
Absolute Lymphs (auto) 1.1 L 10^3/uL
(1.2-3.4)
Absolute Monos (auto) 0.9 H 10^3/uL
(0.1-0.6)
Immature Gran % 0.8 H %
(0-0.5)
Neutrophils % 77.3 H %
(42.2-75.2)
Lymphocytes % 11.6 L %
(20.5-51.1)
Sodium 128 L mmol/L
(135-145)
Chloride 93 L mmol/L
(98-107)
BUN 35 H mg/dl
(9-20)
Creatinine 2.0 H mg/dL
(0.7-1.3)
Glucose 201 H mg/dl
(70-99)
Calcium 10.6 H mg/dl
(8.4-10.2)
Troponin I 0.074 H* ng/ml 0.071 H* ng/ml
08/20/23 20:41
08/20/23 20:41
Vital Signs
Initial and Last Documented VS:
Initial Vital Signs
Temp Pulse Resp BP Pulse Ox
97.8 F 100 17 147/80 99
08/20/23 20:12 08/20/23 20:12 08/20/23 20:12 08/20/23 20:12 08/20/23 20:12
Last Documented Vital Signs
Temp Pulse Resp BP Pulse Ox
97.8 F 95 12 138/70 98
08/20/23 20:12 08/21/23 00:00 08/21/23 00:00 08/21/23 00:00 08/21/23 00:00
*Radiology
Radiology exam reviewed: radiology read reviewed
*Pulse Oximetry
Patient hypoxic: no
*EKG
Interpreted by ED Provider?: Yes
Heart Rate: 99
Rate: normal
Rhythm: sinus
QRS Pattern: left bundle branch block
Ischemia: non-specific ST changes
*Lockstitch Machine Operator Interpretation
Rate: normal
Rhythm: sinus
*Critical Care Note
Total Time (30-74mins, 75-104mins- exclusive of procedures): Not Applicable
ED Attending Note
-
Portions of this chart may have been created with voice recognition software.� Occasional wrong word or��sound alike� substitutions may have occurred due to the inherent limitations of voice recognition software.
Discharge Plan
Departure
Patient Disposition: Admit
Date of Disposition: 08/21/23
Time of Disposition: 00:17
Admit to: Telemetry
Presentation/result/management discussed w/ accepting MD/DO: Hospitalist
Condition: Fair
Discharge Problem:
Chest pain, Chronic renal insufficiency
Prescriptions:
No Action
bicalutamide 50 MG tablet
50 mg PO QPM
Patient Comments:
08/09/2023: filled 07/26/23, 28 tabs for 28 days from [facility]. Family unsure if pt stopped medication on his own, family believes pt is supposed to be on this medication.
atorvastatin 10 MG tablet
10 mg PO QPM
tamsulosin 0.4 MG capsule
0.4 mg PO QPM
insulin aspart U-100 [Novolog FlexPen U-100 Insulin] 300 UNITS/3 ML insulin pen
15 units SC AC
cyclosporine [Restasis] 10 DROPS dropperette
1 drp BOTH EYES BID
carvedilol 6.25 mg tablet
6.25 mg PO BID
omega-3 acid ethyl esters 1 gram capsule
1 g PO QPM
dapagliflozin propanediol [Farxiga] 10 mg tablet
10 mg PO DAILY
Xultophy 100/3.6 100 unit-3.6 mg /mL (3 mL) insulin pen
20 unit SC DAILY
cyanocobalamin (vitamin B-12) 1,000 mcg Tablet
1,000 mcg PO DAILY Qty: 30 0RF
Referrals:
UNKNOWN - PT NOT,INTERVIEWE [Family Provider] -
Interventions
Interventions:
*Risk Screen - Suicide Last Done: 08/20/23 20:35
*General Assessment Last Done: 08/20/23 20:34
*Neglect/Abuse Screening Last Done: 08/21/23 00:11
ED- Fall Risk Assessment Last Done: 08/20/23 20:35
*ED COVID-19 Vaccine History Last Done: 08/20/23 20:12
ED- Cardiac Assessment Last Done: 08/20/23 20:35
[2023-08-20] MEDS: SUBLIMAZE 50 MCG IV (20:58)
[2023-08-20 21:00] VITALS: BP 138/79
[2023-08-20 21:04] LABS: % Basophils 0.2 % (0-2); % Eosinophils 0.8 % (0-6); % Immature Granulocytes 0.8 % (0-0.5); % Lymphocytes 11.6 % (20.5-51.1); % Monocytes 9.3 % (1.7-9.3); % Neutrophils 77.3 % (42.2-75.2); Absolute Eosinophils 0.1 10^3/uL (0-0.7); Absolute Immature Granulocytes 0.1 10^3/uL (0-0.05); Absolute Lymphocytes 1.1 10^3/uL (1.2-3.4); Absolute Monocytes 0.9 10^3/uL (0.1-0.6); Absolute Neutrophils 7.5 10^3/uL (1.4-6.5); Hematocrit 33.9 % (39.0-52.0); Hemoglobin 12.1 g/dL (13.0-18.0); Mean Corp Hgb Conc. 35.7 g/dL (33.0-37.0); Mean Corpuscular Volume 92.4 fL (80.0-94.0); Mean Platelet Volume 10.4 fL (7.4-10.4); Nucleated Red Blood Cells % 0 % (-); Platelet Count 359 10^3/uL (130-400); Red Blood Cell Count 3.67 10^6/uL (4.70-6.10); Red Cell Dist. Width 12.2 % (11.5-14.5); White Blood Cell Count 9.8 10^3/uL (4.8-10.8)
[2023-08-20 21:16] LABS: INR 1.06; PT 13.6 Sec (11.4-14.6)
[2023-08-20 21:20] LABS: ALT (SGPT) 35 U/L (0-50); AST (SGOT) 33 U/L (17-59); Albumin 4.5 g/dl (3.5-5.0); Alkaline Phosphatase 93 U/L (38-126); Blood Urea Nitrogen 35 mg/dl (9-20); Calcium 10.6 mg/dl (8.4-10.2); Carbon Dioxide 25 mmol/L (22-30); Chloride 93 mmol/L (98-107); Estimated Creatinine Clearance 29 ml/min; Glucose 201 mg/dl (70-99); Potassium 5.1 mmol/L (3.5-5.1); Sodium 128 mmol/L (135-145); Total Bilirubin 0.7 mg/dl (0.2-1.3); Total Protein 7.5 g/dl (6.3-8.2); eGFR 32.71
[2023-08-20 21:30] LABS: Troponin I 0.074 ng/ml
[2023-08-20 22:00] VITALS: BP 131/76
[2023-08-20 23:00] VITALS: BP 136/77
[2023-08-20 23:53] LABS: Troponin I 0.071 ng/ml
[2023-08-21] VITALS (9 sets, daily range): BP systolic 127–162; BP diastolic 68–90; BMI 25.4
--- NOTE | 2023-08-21 00:50 | HPS.HSE ---
Family Physician
-
Family Physician: INTERVIEWE UNKNOWN - PT NOT
Chief Complaint
-
chest pain
History of Present Illness
82 y/o M with PMHx:
CKD3b
Prostate cancer status post radiation
BPH
Essential hypertension
Hypercholesterolemia
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
Hyponatremia
Alzheimer's Dementia
Moderate to severe spinal cord compression is central canal stenosis due to C4/C5 moderate size left central disc herniation
who p/w CC chest pain. Around dinnertime patient had heartburn and he was given Pepcid. The heartburn turned to the chest pain. The patient is a poor historian and cannot describe his symptoms any further. History is obtained from the patient
and the family at bedside. No other acute complaints. The patient has been in his usual state of health recently.
Medical History
Past Medical History
Past Medical History: Reports Other (as per HPI)
Past Surgical History: Reports Other (N/A)
Social History
Tobacco: Non-smoker
Alcohol: None
Drug: None
Family History
Family History: Not pertinent
Allergies / Home Medications
Allergies reflects when Allergies were last updated in [facility].
Home Medications with original date entered in [facility]
Allergy/Medication List:
Allergies
Allergy/AdvReac Type Severity Reaction Status Date / Time
No Known Allergies Allergy Verified 08/09/23 13:19
Home Medications
atorvastatin 10 mg tablet 10 mg PO QPM High cholesterol 07/15/21
bicalutamide 50 mg tablet 50 mg PO QPM Cancer 07/15/21
cyclosporine 0.05 % eye drops in a dropperette (Restasis) 1 drp BOTH EYES BID Eye condition 07/15/21
insulin aspart U-100 100 unit/mL (3 mL) subcutaneous pen (Novolog FlexPen U-100 Insulin aspart) 15 units SC AC Diabetes 07/15/21
tamsulosin 0.4 mg capsule 0.4 mg PO QPM Urinary issue 07/15/21
carvedilol 6.25 mg tablet 6.25 mg PO BID 08/09/23
dapagliflozin propanediol 10 mg tablet (Farxiga) 10 mg PO DAILY 08/09/23
insulin degludec 100 unit-liraglutide 3.6 mg/mL(3 mL) subcutaneous pen (Xultophy 100/3.6) 20 unit SC DAILY 08/09/23
omega-3 acid ethyl esters 1 gram capsule 1 g PO QPM 08/09/23
trospium 20 mg tablet 20 mg PO AMHS 08/21/23
Review of Systems
-
History Source: Patient
A 12 point ROS was completed and negative except as noted: Yes
Physical Exam
Vital Signs
Vital Signs
Temp Pulse Resp BP Pulse Ox
97.8 F 95 12 138/70 98
08/20/23 20:12 08/21/23 00:00 08/21/23 00:00 08/21/23 00:00 08/21/23 00:00
Physical Exam
General: Other (.)
Laboratory Results
-
08/20/23 20:41
08/20/23 20:41
Laboratory Results
PT 13.6 Sec (11.4-14.6) 08/20/23 20:41
INR 1.06 08/20/23 20:41
Total Bilirubin 0.7 mg/dl (0.2-1.3) 08/20/23 20:41
AST 33 U/L (17-59) 08/20/23 20:41
ALT 35 U/L (0-50) 08/20/23 20:41
Alkaline Phosphatase 93 U/L (38-126) 08/20/23 20:41
Troponin I 0.071 ng/ml H* 08/20/23 23:04
Impression/Plan
-
Gen: NAD, Awake and alert
Eyes: EOMI, no scleral icterus.
Neck: supple.
CV: RRR, +S1/S2, no m/r/g.
Resp: CTAB, no rales, wheezes, or rhonchi.
Abd: +BS, soft, NT, ND
Skin: No rashes.
Neuro: CN 2-12 intact, non-focal.
Psych: Normal mood and affect.
CXR: No acute disease of the chest. Mild cardiomegaly. Stable
CTA chest: Severe circumferential wall thickening of the lower half of the esophagus. This can be seen with esophagitis. A mural mass cannot be completely excluded. This could further be evaluated by direct visualization or upper GI examination. No
evidence of aortic dissection. Too small to characterize hypodense bilateral renal lesions likely benign cysts. Mild bilateral renal atrophy. Findings suggesting bilateral benign adrenal hyperplasia.
Chest pain:
-CTA chest without aortic dissection
-ECG (read by me): NSR @ 99 with LBBB
-minimally elevated trop, likely not ischemic myocardial injury
-c/s cardiology
ARCADIO on CKD3b:
-recent Cr has ranged from 1.2 to 2.2, most recently 1.4 at time of discharge
-currently 2
-IVFs, trend Cr
Hyponatremia:
-trend Na with IVFs
Other problems:
Prostate cancer status post radiation
BPH: cont FLomax
Essential hypertension: Cont BB
Hypercholesterolemia: Cont statin
DM2 with diabetic retinopathy and neuropathy: cont Farxiga, Novolog, Xultophy equivalent
Hyponatremia
Alzheimer's Dementia
Moderate to severe spinal cord compression is central canal stenosis due to C4/C5 moderate size left central disc herniation
Family updated at bedside
DNR/Heparin
--- NOTE | 2023-08-21 03:39 | PTCARENOTE ---
Addendum entered by Paz Walden RN 08/21/23 07:44:
Pt troponin came back 0.082 from 0.071. TUBE LASER OPERATOR public information coordinator made aware of it. Pt asymptomatic. No new orders at this time.Will continue to monitor pt.Call clayton in reach.Plan of care continued. Pt oob with 1 person assist & voids in the urinal with assist.
Original Note:
Pt received from ER aaox2. Pt fall risk & bed alarm in place. Pt denies of any chest pain. Pt resting comfortably. Pt able to make his needs known. Plan of care continued.
[2023-08-21 03:49] LABS: Glucose - Point of Care 138 mg/dl (70-99)
[2023-08-21 04:24] LABS: Blood Urea Nitrogen 34 mg/dl (9-20); Calcium 10.2 mg/dl (8.4-10.2); Carbon Dioxide 24 mmol/L (22-30); Chloride 98 mmol/L (98-107); Estimated Creatinine Clearance 31 ml/min; Glucose 133 mg/dl (70-99); Potassium 4.8 mmol/L (3.5-5.1); Sodium 128 mmol/L (135-145); eGFR 37.12
[2023-08-21 04:45] LABS: Troponin I 0.082 ng/ml
[2023-08-21] MEDS: NSS 1000 IV ×2 (04:49→15:10)
[2023-08-21 07:59] LABS: Glucose - Point of Care 173 mg/dl (70-99)
[2023-08-21] MEDS: HEPARIN 5000 UNITS SC ×2 (08:02→17:14)
[2023-08-21] MEDS: NOVOLOG FLEXPEN-MODERATE RESISTANCE 1 UNITS SC (08:02)
[2023-08-21] MEDS: NOVOLOG FLEXPEN 15 UNITS SC (08:02)
[2023-08-21] MEDS: COREG 6.25 MG PO ×2 (08:03→09:56)
[2023-08-21] MEDS: FARXIGA 10 MG PO (08:03)
[2023-08-21] MEDS: RESTASIS 0.05% OPHTHALMIC EMULSION 1 DROPS BOTH EYES ×2 (08:08→20:35)
--- NOTE | 2023-08-21 09:44 | CON.CAR ---
Addendum entered and electronically signed by Angeline Vázquez PA-C 08/22/23 07:16:
Per further discussion with family they have opted to proceed with non-invasive work-up for ischemic heart disease and wish to move forward with a Lexiscan stress test not cardiac catheterization.
Addendum entered and electronically signed by Rusty Rosado MD 08/21/23 11:54:
82-year-old man with dementia admitted now with chest discomfort and troponin of 0.082. He had been hospitalized August 09 with change in mental status after a recent trip to [facility]. He had acute kidney injury on irbesartan. During
that hospital stay he had micturition syncope with a troponin of 1.2. He had an element of bladder outlet obstruction. An echocardiogram was unremarkable with preserved systolic function and no significant valvular heart disease. He was evaluated
by neurosurgery for moderate cervical spine disease. There was a chronic left bundle branch block. He was managed conservatively, and sent home, now readmitted with chest pain.
PMH: Hypertension, hyperlipidemia, diabetes, CKD, prostate cancer status post XRT, bladder outlet obstruction, cervical spine disease
PSH: Noncontributory
FH: Noncontributory
SH: Former smoker, rare alcohol, , retired, lives with family,
Allergies: ARBs
ROS: Not readily obtainable
Outpatient meds: Atorvastatin 10 mg carvedilol 6.25 twice daily, dapagliflozin 10 mg a day, insulin, omega-3 fatty acids, tamsulosin, trospium, Xultophy
127/70, pulse 97, respirate 18, afebrile, sats 100%
No distress, soft collar on neck, head neck exam otherwise unremarkable, lungs are clear, cardiac exam regular rate and rhythm without obvious murmurs or bruits, abdomen benign extremities without edema pulses intact
Chest x-ray: NAD
EKG sinus rhythm left bundle branch block with anterior T inversions
Hemoglobin 12.1, sodium is 128, creatinine is 1.8, BUN is stable for, creatinine had been 2 was 1.4 at discharge, troponin is 0.082, abdomen 0.2 last week, LDL is 83
Impression:
Presented chest pain/chest burning after eating -esophageal abnormality on CT scan
Abdominal troponin, peak 0.082
ARCADIO on CKD, likely from IV contrast, possibly bladder outlet obstruction
CKD 3B
Syncopal episode 08/11 AM thought to be related to micturition syncope
Recent admission 07/2022 with TME, obstructive uropathy requiring jin and ARCADIO (taken off ARB)
chronic LBBB
HTN
HLD
DM2
CKD
Prostate cancer s/p radiation
BPH
Alzheimer's Dementia
Moderate to severe spinal cord compression is central canal stenosis due to C4/C5 moderate size left central disc herniation (conservative management per family)
Echo August 11, 2023: EF 60-65% with no significant valvular disease.
Plan:
He presents with chest discomfort in the setting of a recent elevated troponin following syncope. His troponin is detectable but relatively flat and can suitably lower from peak troponin of 1.2 last week.
It is conceivable that symptoms prompting his emergency department visit are more GI than cardiac, particularly given thickening of esophagus seen on CT scan that was obtained to rule out aortic dissection.
He has recurrent ARCADIO prior to IV contrast and had bladder outlet obstruction last week. I remain concerned that bladder outlet obstruction is an active issue. Will repeat his bladder scan and thereafter defer to hospitalist as to best management
strategy.
Although my suspicion is that his current symptoms may not be GI, through his left bundle branch block he has developed T wave inversions and given his clinical presentation I am concerned that he has obstructive LAD disease. His management is made
more complex by his dementia, though his mental status is markedly improved compared to last week.
Nico Vázquez has discussed all the above with the family, and presented option of very conservative management with medications alone (Aspirin, beta-lilliana, statin, possible clopidogrel) versus stress testing versus cardiac catheterization provided
renal function improves. Family would be most comfortable with invasive strategy.
Original Note:
Consultation
Consultation Request
Date/Time Consultation Requested: 08/21/2023
Date/Time Consultation Performed: 08/21/2023
Requesting Provider: Dr. Gonzales
Medical History
-
History of Present Illness:
Patient is an 82-year-old male with past medical history significant for past medical history of diabetes, hypertension, hyperlipidemia, prostate cancer s/p radiation, BPH, CKD, who was recently admitted with TME and ARCADIO with discontinuation of ARB
likely from obstructive uropathy. He presents back 08/20/2023 with chest burning with poor appetite for a few days. Burning became pain when he tried to eat soup at dinner on the evening of 08/20/2023. He was provided Pepcid without improvement of
symptoms prompting patient's family to bring him to the emergency department. On admission troponin 0.074. EKG sinus rhythm with left bundle branch, known finding. CT a of chest was negative for dissection but did show severe circumferential wall
thickening of the lower half of the esophagus possibly esophagitis. Patient currently chest pain free.
PMH:
CKD 3B
Syncopal episode 08/11 AM thought to be related to micturition syncope
Recent admission 07/2022 with TME, obstructive uropathy requiring jin and ARCADIO (taken off ARB)
chronic LBBB
HTN
HLD
DM2
CKD
Prostate cancer s/p radiation
BPH
Alzheimer's Dementia
Moderate to severe spinal cord compression is central canal stenosis due to C4/C5 moderate size left central disc herniation (conservative management per family)
Past Medical History
Past Medical History: Other (see hpi)
Social History
Tobacco: Former Smoker
Alcohol: Former
Drug: None
Personal:
Living: With Family
Employment: Retired
Family History
Family History: Diabetes
Allergies / Home Medications
Allergy/AdvReac Type Severity Reaction Status Date / Time
irbesartan AdvReac Intermediate Unknown Verified 08/21/23 09:23
Medication Instructions Recorded Confirmed Type
atorvastatin 10 mg tablet 10 mg PO QPM High cholesterol 07/15/21 08/21/23 History
bicalutamide 50 mg tablet 50 mg PO QPM Cancer 07/15/21 08/21/23 History
cyclosporine 0.05 % eye drops in a 1 drp BOTH EYES BID Eye condition 07/15/21 08/21/23 History
dropperette (Restasis)
insulin aspart U-100 100 unit/mL 15 units SC AC Diabetes 07/15/21 08/21/23 History
(3 mL) subcutaneous pen (Novolog
FlexPen U-100 Insulin aspart)
tamsulosin 0.4 mg capsule 0.4 mg PO QPM Urinary issue 07/15/21 08/21/23 History
carvedilol 6.25 mg tablet 6.25 mg PO BID 08/09/23 08/21/23 History
dapagliflozin propanediol 10 mg 10 mg PO DAILY 08/09/23 08/21/23 History
tablet (Farxiga)
insulin degludec 100 20 unit SC DAILY 08/09/23 08/21/23 History
unit-liraglutide 3.6 mg/mL(3 mL)
subcutaneous pen (Xultophy 100/3.6)
omega-3 acid ethyl esters 1 gram 1 g PO QPM 08/09/23 08/21/23 History
capsule
trospium 20 mg tablet 20 mg PO AMHS 08/21/23 08/21/23 History
Review of Systems
-
History Source: Patient
All other systems: Negative unless noted
Physical Exam
Vital Signs
Temp Pulse Resp BP Pulse Ox
98.6 F 97 18 127/70 100
08/21/23 07:00 08/21/23 08:03 08/21/23 07:00 08/21/23 08:03 08/21/23 07:00
GEN: No distress, awake, Ox3. wearing C-collar
HEENT: supple, anicteric, mmm
LUNGS: Few scattered crackles lia, otherwise CTA, no wheezes/rales
CV: Reg, S1/S2, no murmur, rub or gallop
ABD: soft, BS+, NT/ND
EXT: No edema, clubbing or cyanosis
NEURO: Gross non-focal
SKIN: No rash, warm, dry
Lab Results
08/20/23 20:41
08/21/23 03:45
Troponin I Cancelled 08/21/23 09:09
Impression / Plan
-
PCP: unknown
Primary Communication Coordinator: Saw Dr. Dumas in past but saw 08/11/2023 in [facility]
Impression:
Presented chest pain/chest burning after eating
Abdominal troponin, peak 0.082
ARCADIO on CKD, likely from IV contrast
CKD 3B
Syncopal episode 08/11 AM thought to be related to micturition syncope
Recent admission 07/2022 with TME, obstructive uropathy requiring jin and ARCADIO (taken off ARB)
chronic LBBB
HTN
HLD
DM2
CKD
Prostate cancer s/p radiation
BPH
Alzheimer's Dementia
Moderate to severe spinal cord compression is central canal stenosis due to C4/C5 moderate size left central disc herniation (conservative management per family)
Echo August 11, 2023: EF 60-65% with no significant valvular disease.
Plan:
Patient is an 82-year-old male with past medical history significant for past medical history of diabetes, hypertension, hyperlipidemia, prostate cancer s/p radiation, BPH, CKD, who was recently admitted with TME and ARCADIO with discontinuation of ARB
likely from obstructive uropathy. He presents back 08/20/2023 with chest burning with poor appetite for a few days. Burning became pain when he tried to eat soup at dinner on the evening of 08/20/2023. He was provided Pepcid without improvement of
symptoms prompting patient's family to bring him to the emergency department. On admission troponin 0.074. EKG sinus rhythm with left bundle branch, known finding. CT a of chest was negative for dissection but did show severe circumferential wall
thickening of the lower half of the esophagus possibly esophagitis. Patient currently chest pain free.
-Presented 08/20/2023 with chest burning/chest pain
-Abnormal troponin, which has been elevated but rather flat this admission peaked 0.082. Previous admission approximately 10 days ago troponin peaked at 1.26.
-EKG sinus rhythm with left bundle branch block, some nonspecific T wave inversions anteriorly.
-Given recent episode of syncope 08/11/23, LBBB, abnormal troponin which remains elevated although decreased this admission and new chest pain/burning there is concern for possible ischemic heart disease.
-Family updated over phone including son and [id number] who is a nurse at [employer]. Discussed proceeding with ischemic evaluation. Discussed stress test versus cardiac catheterization. Family favors cardiac catheterization. Will add on to
schedule tentatively 08/22/2023 as long as creatinine stable
-Recent ARCADIO in setting of obstructive uropathy during recent admission. Creatinine did improve to 1.2 with insertion of Jin and discontinuation of ARB. Creatinine on admission 1.4. Did bump to 1.8 overnight most likely insult from IV contrast
after CTA of chest. Continue to monitor closely.
-Echo from 08/11/2023 as noted above. Will hold on repeating this admission.
-Restarted aspirin 81 mg.
-Per review of telemetry heart rates have been running in the 90s thus far. Will increase Coreg to 12.5 mg twice a day.
-Hyperlipidemia with lipids 08/21/2023 TC 142, HDL 37, LDL 83, triglycerides 111. Given diabetes and concern for CAD. Will uptitrate atorvastatin to 20 mg.
-Continue Farxiga for diabetes
-CTA of chest without dissection. Did show circumferential wall thickening of lower half of the esophagus possibly esophagitis. Would consider starting PPI. If cardiac cath unrevealing would consider GI evaluation.
Patient's son and [id number] updated over the phone, discussed with Dr. Alba and nursing.
[2023-08-21] MEDS: ASPIRIN 325 MG PO (09:56)
[2023-08-21 10:14] LABS: HDL Cholesterol 37 mg/dl; LDL Cholesterol, Calculated 83 mg/dl; Total Cholesterol 142 mg/dl (50-199); Triglyceride 111 mg/dl (10-149); Very Low Density Lipoprotein 22 mg/dl (0-30)
[2023-08-21 12:07] LABS: Glucose - Point of Care 91 mg/dl (70-99)
[2023-08-21] MEDS: NOVOLOG FLEXPEN-MODERATE RESISTANCE SC ×2 (12:08→16:39)
[2023-08-21] MEDS: NOVOLOG FLEXPEN SC ×2 (12:21→17:01)
--- NOTE | 2023-08-21 12:22 | PTCARENOTE ---
Pt refused his lunch, He did not want to eat. Will monitor BS, currently 91
--- NOTE | 2023-08-21 13:11 | W.PN.HOSP.TC ---
Today's Communication/Plan
-
see A/P
Assessment / Plan
Assessment / Plan
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
Around dinnertime, patient had heartburn and he was given Pepcid.� The heartburn turned to the chest pain.� The patient is a poor historian and cannot describe his symptoms any further.� History is obtained from the patient and the family at
bedside.�No other acute complaints.� The patient has been in his usual state of health recently.
CXR: No acute disease of the chest. Mild cardiomegaly. Stable
CTA chest: Severe circumferential wall thickening of the lower half of the esophagus. This can be seen with esophagitis. A mural mass cannot be completely excluded. This could further be evaluated by direct visualization or upper GI examination. No
evidence of aortic dissection. Too small to characterize hypodense bilateral renal lesions likely benign cysts. Mild bilateral renal atrophy. Findings suggesting bilateral benign adrenal hyperplasia.
A/P:
# Resolved chest pain, ?dyspepsia
CTA chest without aortic dissection, noted severe circumferential wall thickening of the lower half of the esophagus, could be esophagitis
ECG NSR with LBBB
minimally elevated trop (improved from before)
Cont PARIMUTUEL TICKET SELLER Coreg, increased to 12.5 mg BID
Cont PARIMUTUEL TICKET SELLER Lipitor, increased to 40 mg HS
Cardiology recc cardiac cath, plan for 08/21
Recc outpt GI workup for dyspepsia/esophagitis work up
# ARCADIO on CKD3b
SCr 1.8 from 2.0 on admission, baseline SCr at 1.2~1.4
Cont IVFs, trend Cr
Renal CS given anticipation for cardiac cath 08/21
# Hyponatremia:
trend Na with IVFs
Other problems:
# Prostate cancer status post radiation
# BPH: cont FLomax
# Essential hypertension: Cont PARIMUTUEL TICKET SELLER coreg, increased to 12.5 mg BID
# Hypercholesterolemia: Cont statin
# DM2 with diabetic retinopathy and neuropathy: cont Farxiga, Novolog, Xultophy equivalent
# Alzheimer's Dementia
# Moderate to severe spinal cord compression is central canal stenosis due to C4/C5 moderate size left central disc herniation
Code status: DNR
DVT ppx: Heparin SQ
DW daughter at bedside
Anticipated Discharge: > 48 hours
Subjective/Interval History
-
Date of Service: August 21, 2023
Objective Data
-
Labs:
Laboratory Results
08/21/23
03:45
Sodium 128 L
Potassium 4.8
Chloride 98
Carbon Dioxide 24
BUN 34 H
Creatinine 1.8 H
Glucose 133 H
Calcium 10.2
Vital Signs:
Vital Signs
Temp Pulse Resp BP Pulse Ox
36.8 C 93 20 135/73 100
08/21/23 11:00 08/21/23 11:00 08/21/23 11:00 08/21/23 11:00 08/21/23 12:05
I&O
08/20/23 08/21/23 08/22/23
06:59 06:59 06:59
Output Total 300 / 300
Balance -300 / -300
Review of Systems
-
All other systems: Reviewed and negative
Cardiac: Denies Chest Pain
Abdomen/GI: Reports Other (heart burn has resolved ); Denies Abdominal Pain
Physical Exam
-
General: Well Developed, No Apparent Distress, Comfortable and Conversant
HEENT: Normocephalic, Atraumatic and Moist Mucous Membranes
Respiratory: Clear to Auscultation and Non Labored Respirations; Negative Accessory Resp Muscle Use
Cardiac: Regular Rhythm and S1/S2; Negative Murmur, Rub or Gallop
GI: Soft, Nontender, Nondistended and Normal Bowel Sounds
Rectal: Deferred by Provider
Musculoskeletal: No Clubbing, No Cyanosis and No Edema
Skin: Negative Rash
Neuro: Awake and Alert
Psych: Calm
Data Reviewed
-
Labs: Labs Reviewed by me
--- NOTE | 2023-08-21 14:57 | VNURNOTE ---
Patient is current with [facility] since 08/17, will monitor progress and plan at discharge.
--- NOTE | 2023-08-21 15:49 | W.CON.NEPH ---
Consultation
-
Date/Time Consultation Requested: 08/20 10:41AM
Date/Time Consultation Performed: 08/20 3:50PM
Requesting Provider: Anna Alba
Performing Provider: Gricelda Linda
Reason for Consultation: CKD
Medical History
-
Chief Complaint: CKD
History of Present Illness:
Mr. Hoang is an 82 YOM with PMH of mild dementia, chronic back pain/neck pain, prostate cancer status post radiation, hypertension on coreg, Orbasartan, hypercholesterolemia on statin, diabetes type 2 on insulin, diabetic neuropathy, chronic kidney
disease 3b baseline cr 2, presenting for�chest pain. Patient is a very poor historian and history is obtained mainly from chart review.
Of note, the patient was recently admitted for mental status change after a trip to [facility]. He had an ARCADIO at that time with Cr elevated to 2.2. His Cr did improve to 1.4 on discharge. There was concern for bladder outlet obstruction at that time.
Plan for follow up with nephrology as an outpatient but unfortunately patient presents for readmission.
Past Medical History
mild dementia, chronic back pain/neck pain, prostate cancer status post radiation, hypertension, hypercholesterolemia, diabetes, diabetic neuropathy, chronic kidney disease
Social History
Tobacco: Former Smoker
Alcohol: Former
Drug: None
Living: With Family
Family History
Family History: Not Pertinent
Allergies / Home Medications
Allergy/AdvReac Type Severity Reaction Status Date / Time
irbesartan AdvReac Intermediate Unknown Verified 08/21/23 09:23
Medication Instructions Recorded Confirmed Type
atorvastatin 10 mg tablet 10 mg PO QPM High cholesterol 07/15/21 08/21/23 History
bicalutamide 50 mg tablet 50 mg PO QPM Cancer 07/15/21 08/21/23 History
cyclosporine 0.05 % eye drops in a 1 drp BOTH EYES BID Eye condition 07/15/21 08/21/23 History
dropperette (Restasis)
insulin aspart U-100 100 unit/mL 15 units SC AC Diabetes 07/15/21 08/21/23 History
(3 mL) subcutaneous pen (Novolog
FlexPen U-100 Insulin aspart)
tamsulosin 0.4 mg capsule 0.4 mg PO QPM Urinary issue 07/15/21 08/21/23 History
carvedilol 6.25 mg tablet 6.25 mg PO BID 08/09/23 08/21/23 History
dapagliflozin propanediol 10 mg 10 mg PO DAILY 08/09/23 08/21/23 History
tablet (Farxiga)
insulin degludec 100 20 unit SC DAILY 08/09/23 08/21/23 History
unit-liraglutide 3.6 mg/mL(3 mL)
subcutaneous pen (Xultophy 100/3.6)
omega-3 acid ethyl esters 1 gram 1 g PO QPM 08/09/23 08/21/23 History
capsule
trospium 20 mg tablet 20 mg PO AMHS 08/21/23 08/21/23 History
Review of Systems
-
Unable to obtain full review of systems at this time due to: Dementia
Physical Exam
Vital Signs
Vital Signs
Temp Pulse Resp BP Pulse Ox
98.1 F 86 18 145/76 98
08/21/23 15:00 08/21/23 15:00 08/21/23 15:00 08/21/23 15:00 08/21/23 15:00
Lab Results
WBC 9.8 10^3/uL (4.8-10.8) 08/20/23 20:41
RBC 3.67 10^6/uL (4.70-6.10) L 08/20/23 20:41
Hgb 12.1 g/dL (13.0-18.0) L 08/20/23 20:41
Hct 33.9 % (39.0-52.0) L 08/20/23 20:41
Plt Count 359 10^3/uL (130-400) 08/20/23 20:41
Sodium 128 mmol/L (135-145) L 08/21/23 03:45
Potassium 4.8 mmol/L (3.5-5.1) 08/21/23 03:45
Chloride 98 mmol/L (98-107) 08/21/23 03:45
Carbon Dioxide 24 mmol/L (22-30) 08/21/23 03:45
BUN 34 mg/dl (9-20) H 08/21/23 03:45
Creatinine 1.8 mg/dL (0.7-1.3) H 08/21/23 03:45
eGFR 37.12 08/21/23 03:45
Glucose 133 mg/dl (70-99) H 08/21/23 03:45
Calcium 10.2 mg/dl (8.4-10.2) 08/21/23 03:45
Albumin 4.5 g/dl (3.5-5.0) 08/20/23 20:41
Physical Exam
General: Awake, Alert and No Distress
HEENT: PERRL and EOMI
Respiratory: Clear and Normal Excursion
Cardiac: S1/S2
Breast: N/A
Abdomen: Soft, Nontender and Nondistended
Rectal: Deferred by Provider
Genito-urinary: Clear Urine
Musculoskeletal: No Clubbing
Skin: No Rash
Neuro: Nonfocal/Grossly Intact
Psych: Other (scared, worried about his family )
Assessment/Plan
-
IMP:
Chronic kidney disease stage IIIb-baseline 1.7-2, d/c at 1.4
Hyponatremia
Dementia (baseline)
Hypotension
Prostate cancer status post radiation
Essential hypertension
Hypercholesterolemia
Type 2 diabetes with mild microalbuminuria
Diabetic retinopathy
Diabetic neuropathy
Chronic neck/back pain
Plan:
CKD - Cr close/at baseline
previously with [facility] with medical renal disease and a small complex cyst (likely will not pursue aggressive management as patient has significant dementia)
bland UA
restarted on farxiga but will hold prior to cardiac cath
ordered bladder scan, prior improvement with jin placement
no longer with metabolic acidosis and sodium bicarb not listed as home med, will hold off for now
d/w patient in detail
Data Reviewed
-
Radiology: Report Reviewed by me (clear lung soto )
CT Scan: Report Reviewed by me (c/f esophagitis)
Ultrasound: Report Reviewed by me
Labs: Labs Reviewed by me
Old Records: Reviewed
[2023-08-21 16:41] LABS: Glucose - Point of Care 69 mg/dl (70-99)
--- NOTE | 2023-08-21 16:44 | PTCARENOTE ---
Pt has a BS of 69, gave juice, will resess in 15 minutes. Advised
[2023-08-21 16:49] LABS: Glucose - Point of Care 68 mg/dl (70-99)
--- NOTE | 2023-08-21 16:49 | PTCARENOTE ---
MD advised to hold mealtime insulin and give sliding scale. However he is not within parameters. BS is 68 after 15 minutes. pt is eating, will reassess
[2023-08-21 17:03] LABS: Glucose - Point of Care 92 mg/dl (70-99)
[2023-08-21] MEDS: LIPITOR 40 MG PO (17:15)
[2023-08-21] MEDS: FLOMAX 0.400000000000000022 MG PO (17:15)
--- NOTE | 2023-08-21 17:25 | CM ---
Alert awake oriented patient who lives with his Andreea and son Boubacar (who has MS) who lives in a 2 story home with 2 step to enter and bed and bathroom on first floor. He is assisted all activities of daily living.He was offered VN requested
[facility] resumption (Lisseth TT requested).
walker
current [facility] / No SNF history
Pharmacy [facility]
PCP DR Jagjti Russell
PLAN Home [facility] resumption
[2023-08-21] MEDS: TYLENOL 650 MG PO (21:09)
[2023-08-21 21:13] LABS: Glucose - Point of Care 131 mg/dl (70-99)
[2023-08-22] MEDS: HEPARIN 5000 UNITS SC ×2 (01:36→08:55)
[2023-08-22] MEDS: NSS 1000 IV (01:37)
[2023-08-22 03:29] VITALS: BP 120/52
[2023-08-22 05:19] LABS: Hematocrit 28.1 % (39.0-52.0); Hemoglobin 9.8 g/dL (13.0-18.0); Mean Corp Hgb Conc. 34.9 g/dL (33.0-37.0); Mean Corpuscular Hgb 32.2 pg (27.0-31.0); Mean Corpuscular Volume 92.4 fL (80.0-94.0); Mean Platelet Volume 10.5 fL (7.4-10.4); Platelet Count 288 10^3/uL (130-400); Red Blood Cell Count 3.04 10^6/uL (4.70-6.10); Red Cell Dist. Width 12.1 % (11.5-14.5)
[2023-08-22 05:47] LABS: Blood Urea Nitrogen 30 mg/dl (9-20); Calcium 9.1 mg/dl (8.4-10.2); Carbon Dioxide 18 mmol/L (22-30); Chloride 107 mmol/L (98-107); Estimated Creatinine Clearance 32 ml/min; Glucose 100 mg/dl (70-99); Potassium 4.5 mmol/L (3.5-5.1); Sodium 131 mmol/L (135-145); eGFR 39.75
[2023-08-22 06:00] VITALS: BMI 25.6
[2023-08-22 06:09] LABS: Glucose - Point of Care 127 mg/dl (70-99)
[2023-08-22 07:38] VITALS: BP 133/77
[2023-08-22 08:28] LABS: Glucose - Point of Care 116 mg/dl (70-99)
[2023-08-22] MEDS: NOVOLOG FLEXPEN-MODERATE RESISTANCE SC (08:55)
[2023-08-22] MEDS: RESTASIS 0.05% OPHTHALMIC EMULSION 1 DROPS BOTH EYES (08:55)
[2023-08-22] MEDS: LOW STRENGTH ASPIRIN 81 MG PO (08:55)
[2023-08-22] MEDS: NOVOLOG FLEXPEN SC (09:03)
[2023-08-22] MEDS: LEXISCAN 0.400000000000000022 MG IV (11:14)
[2023-08-22] MEDS: FLUSH (NSS) 1 FLUSH IV (11:15)
--- NOTE | 2023-08-22 11:47 | W.PN.HOSP.TC ---
Addendum entered and electronically signed by Jailyn Alba MD 08/22/23 14:43:
Per cardiology, stress test unrevealing. The patient has been cleared by the cardiology standpoint for discharge.
Will start trial of PPI for esophagitis, can start 40 mg daily, and inform patient to follow-up with GI outpatient
total DC time 40 min
Original Note:
Today's Communication/Plan
-
see A/P
Assessment / Plan
Assessment / Plan
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
Around dinnertime, patient had heartburn and he was given Pepcid.� The heartburn turned to the chest pain.� The patient is a poor historian and cannot describe his symptoms any further.� History is obtained from the patient and the family at
bedside.�No other acute complaints.� The patient has been in his usual state of health recently.
CXR: No acute disease of the chest. Mild cardiomegaly. Stable
CTA chest: Severe circumferential wall thickening of the lower half of the esophagus. This can be seen with esophagitis. A mural mass cannot be completely excluded. This could further be evaluated by direct visualization or upper GI examination. No
evidence of aortic dissection. Too small to characterize hypodense bilateral renal lesions likely benign cysts. Mild bilateral renal atrophy. Findings suggesting bilateral benign adrenal hyperplasia.
A/P:
# Resolved chest pain, ?dyspepsia
CTA chest without aortic dissection, noted severe circumferential wall thickening of the lower half of the esophagus, could be esophagitis
ECG NSR with LBBB
minimally elevated trop (improved from before)
Cont CUTTER GRIND TOOL TECHNICIAN Coreg, increased to 12.5 mg BID (on hold)
Cont CUTTER GRIND TOOL TECHNICIAN Lipitor, increased to 40 mg HS
Cardiology recc cardiac cath, but family declined invasive procedure, changed to stress test for 08/21
Recc outpt GI workup for dyspepsia/esophagitis work up. Pt and daughter informed and both agree with outpt follow up
# ARCADIO on CKD3b
SCr today 1.7, from 2.0 on admission, baseline SCr at 1.2~1.4
Cont IVFs, trend Cr
Renal on board (was consulted in anticipation for cardiac cath 08/21)
# Hyponatremia:
trend Na with IVFs
Other problems:
# Prostate cancer status post radiation
# BPH: cont FLomax
# Essential hypertension: Cont CUTTER GRIND TOOL TECHNICIAN coreg, increased to 12.5 mg BID
# Hypercholesterolemia: Cont statin
# DM2 with diabetic retinopathy and neuropathy: cont Farxiga, Novolog, Xultophy equivalent
# Alzheimer's Dementia
# Moderate to severe spinal cord compression is central canal stenosis due to C4/C5 moderate size left central disc herniation
Code status: DNR
DVT ppx: Heparin SQ
PT OT eval
DW daughter at bedside
Anticipated Discharge: Within 24 hours
Subjective/Interval History
-
Date of Service: August 22, 2023
Objective Data
-
Labs:
Laboratory Results
08/22/23
04:50
WBC 7.0
Hgb 9.8 L
Hct 28.1 L
Plt Count 288
Sodium 131 L
Potassium 4.5
Chloride 107
Carbon Dioxide 18 L
BUN 30 H
Creatinine 1.7 H
Glucose 100 H
Calcium 9.1
Vital Signs:
Vital Signs
Temp Pulse Resp BP Pulse Ox
36.7 C 84 18 133/77 100
08/22/23 07:38 08/22/23 07:38 08/22/23 07:38 08/22/23 07:38 08/22/23 07:38
I&O
08/21/23 08/22/23 08/23/23
06:59 06:59 06:59
Intake Total 960 / 960
Output Total 300 / 300
Balance -300 / -300 960 / 960
Review of Systems
-
All other systems: Reviewed and negative
Cardiac: Denies Chest Pain
Abdomen/GI: Reports Other (heart burn has resolved ); Denies Abdominal Pain
Physical Exam
-
General: Well Developed, No Apparent Distress, Comfortable and Conversant
HEENT: Normocephalic, Atraumatic and Moist Mucous Membranes
Respiratory: Clear to Auscultation and Non Labored Respirations; Negative Accessory Resp Muscle Use
Cardiac: Regular Rhythm and S1/S2; Negative Murmur, Rub or Gallop
GI: Soft, Nontender, Nondistended and Normal Bowel Sounds
Rectal: Deferred by Provider
Musculoskeletal: No Clubbing, No Cyanosis and No Edema
Skin: Negative Rash
Neuro: Awake and Alert
Psych: Calm
Data Reviewed
-
Labs: Labs Reviewed by me
[2023-08-22 12:56] VITALS: BP 124/77
[2023-08-22 13:03] LABS: Glucose - Point of Care 198 mg/dl (70-99)
[2023-08-22] MEDS: FARXIGA PO (13:07)
[2023-08-22] MEDS: NOVOLOG FLEXPEN 5 UNITS SC (13:56)
[2023-08-22 13:57] VITALS: BP 126/74; PULSE 86
[2023-08-22] MEDS: NOVOLOG FLEXPEN-MODERATE RESISTANCE 1 UNITS SC (13:59)
--- NOTE | 2023-08-22 14:14 | W.PN.CARDCBS ---
Addendum entered and electronically signed by Adama Mckeon MD 08/22/23 15:00:
I saw and examined the patient.
The Manager Business Continuity's note was reviewed and I agree with the note.
Comment: Briefly, 82-year-old man with ongoing episodic chest discomfort associated with eating
Troponin elevated to 1.2 on 08/11/23 and downtrended. Managed as non-[place] troponin elevation at that time.
Again presenting with chest discomfort which has subsequently resolved
Troponin now lower 0.07
ECG difficult to interpret due to chronic LBBB
Chest pain has since resolved
Underwent pharmacologic nuclear stress test earlier today with inferior soft tissue attenuation, no clear ischemia
Cont ASA/statin/BB
Stable for discharge from cardiology stand point
Original Note:
Today's Communication / Plan
-
stress test without evidence of active ischemia
continue asa, statin, coreg
consider GI eval, ? esophagitis as etiology of discomfort
OP cardiac follow up arranged
Impression / Plan
-
PCP: unknown
Primary Project Economist: Saw Dr. Dumas in past but saw 08/11/2023 in [facility]
Impression:
Presented chest pain/chest burning after eating
Abdominal troponin, peak 0.082
ARCADIO on CKD, likely from IV contrast
CKD 3B
Syncopal episode 08/11 AM thought to be related to micturition syncope
Recent admission 07/2022 with TME, obstructive uropathy requiring jin and ARCADIO (taken off ARB)
chronic LBBB
HTN
HLD
DM2
CKD
Prostate cancer s/p radiation
BPH
Alzheimer's Dementia
Moderate to severe spinal cord compression is central canal stenosis due to C4/C5 moderate size left central disc herniation (conservative management per family)
Echo August 11, 2023: EF 60-65% with no significant valvular disease.
Plan:
-s/p lexiscan mibi stress test 08/22/23 with fixed inferior defect felt to be soft tissue attenuation, no evidence of active ischemia.
-trops flat 0.07-0.08
-no current CP
-EKG sinus rhythm with left bundle branch block, some nonspecific T wave inversions anteriorly.
-Cr down trending, 1.7 on 08/21
-continue asa, lipitor at increased dose. Goal LDL <70 given diabetes.
-continue coreg, dose increased this admission to 12.5mg BID
-Continue Farxiga for diabetes
-consider alternative etiologies of chest discomfort. CTA with evidence of possible esophagitis. consider GI evaluation/PPI trial
-will arrange OP cardiac follow up
-d/w patient and daughter at bedside. TT sent to hospitalist. d/w nursing
PREADMIT DATA:
Patient is an 82-year-old male with past medical history significant for past medical history of diabetes, hypertension, hyperlipidemia, prostate cancer s/p radiation, BPH, CKD, who was recently admitted with TME and ARCADIO with discontinuation of ARB
likely from obstructive uropathy. He presents back 08/20/2023 with chest burning with poor appetite for a few days. Burning became pain when he tried to eat soup at dinner on the evening of 08/20/2023. He was provided Pepcid without improvement of
symptoms prompting patient's family to bring him to the emergency department. On admission troponin 0.074. EKG sinus rhythm with left bundle branch, known finding. CT a of chest was negative for dissection but did show severe circumferential wall
thickening of the lower half of the esophagus possibly esophagitis. Patient currently chest pain free.
Progress Note - Project Economist
Subjective
Date of Service: August 22, 2023
without current complaints
Objective
Labs:
08/22/23 04:50
08/22/23 04:50
Labs
Hgb 9.8 g/dL (13.0-18.0) L 08/22/23 04:50
Hct 28.1 % (39.0-52.0) L 08/22/23 04:50
Plt Count 288 10^3/uL (130-400) 08/22/23 04:50
PT 13.6 Sec (11.4-14.6) 08/20/23 20:41
INR 1.06 08/20/23 20:41
Sodium 131 mmol/L (135-145) L 08/22/23 04:50
Potassium 4.5 mmol/L (3.5-5.1) 08/22/23 04:50
BUN 30 mg/dl (9-20) H 08/22/23 04:50
Creatinine 1.7 mg/dL (0.7-1.3) H 08/22/23 04:50
Glucose 100 mg/dl (70-99) H 08/22/23 04:50
Troponins
08/20/23 08/20/23 08/21/23
20:41 23:04 03:45
Troponin I 0.074 H* 0.071 H* 0.082 H*
08/21/23 08/21/23
06:09 09:09
Troponin I Cancelled Cancelled
Vital Signs and I&O:
Vital Signs
Temp Pulse Resp BP Pulse Ox
97.7 F 87 16 124/77 99
08/22/23 12:56 08/22/23 12:56 08/22/23 12:56 08/22/23 12:56 08/22/23 12:56
Vital Signs
Temp Pulse Resp BP Pulse Ox
97.7 F 87 16 124/77 99
08/22/23 12:56 08/22/23 12:56 08/22/23 12:56 08/22/23 12:56 08/22/23 12:56
Intake & Output
08/20/23 08/21/23 08/22/23 08/23/23
07:59 07:59 07:59 07:59
Intake Total 960 / 960
Output Total 300 / 300
Balance -300 / -300 960 / 960
Physical Exam
Physical Exam
GEN: awake, alert, oriented to self. sitting in chair
RESP: no audible wheezes
[2023-08-22] MEDS: NSS IV (14:49)
--- NOTE | 2023-08-22 14:49 | W.DCSUMMARY ---
Discharge Summary
Discharge Data
Date of Admission: 08/21/23
Date of Discharge: 08/22/23
-
Pending Results: No
Hospital Course
Principal Diagnosis:
Chest pain likely due to dyspepsia versus esophagitis noted on CT scan
Acute kidney injury on chronic kidney disease stage III
Chronic Diagnoses:�
Chronic kidney disease stage IIIb
Prostate cancer status post radiation
Benign prostate hypertrophy on Flomax
Essential hypertension on Coreg
Hypercholesterolemia
Insulin-dependent diabetes
Alzheimer's Dementia
Moderate to severe spinal cord compression is central canal stenosis due to C4/C5 moderate size left central disc herniation
Consultations:�
Cardiology
Procedures:�
Cardiac stress test without evidence of active ischemia
Clinical course:�
This is a 82-year-old male with past medical history as stated above, who presented with chest pain which has much resolved during his hospital stay.�
Problem 1:
Chest pain likely due to dyspepsia versus esophagitis noted on CT scan.
His chest pain has much resolved during his hospital stay.
His CTA chest was without aortic dissection, noted severe circumferential wall thickening of the lower half of the esophagus, which could be esophagitis.
He was sent home with Protonix 40 mg daily and has been informed to follow-up with gastroenterology outpatient for esophagitis workup.
Given his EKG noted to left bundle branch block and he had minimally elevated troponin (which actually has improved from prior levels), he underwent cardiac stress test by cardiology, which was negative for acute cardiac ischemia.
Problem 2:
ARCADIO on CKD3b.
His serum creatinine has improved from 2.0 on admission to 1.7 on the day of discharge.
His baseline serum creatinine was at around 1.2 to 1.4.
He was given a BMP script to follow-up serum creatinine level outpatient, result to his PCP.
Problem 3:
Improved Hyponatremia from 128 on admission to 131.
He can check sodium level outpatient with result to his PCP as well.
As for the rest of his medical problems, they were stable during his hospital stay.
Discharge Plan
-
Patient Disposition: Home with Home Care
Discharge Diagnosis/Procedures: Chest pain likely due to esophagitis
Condition: Fair
Diet: As tolerated, Low Fat, Low Cholesterol and Low Sodium
Activity: As tolerated
Driving Restrictions: As prior to admission
Blood Work: BMP in 1 week, result to PCP
Activity Restrictions/Additional Instructions:
Follow-up with the GI doctor outpatient for esophagitis workup.
You were empirically started with Protonix 40 mg daily for esophagitis; continue this for now until further directed by the GI doctor outpatient.
Referrals:
Angeline Vázquez PA-C [Specified Professional Personl] - 09/20/23 9:40 am (You have a cardiology follow up appointment at the [facility]. Please call with questions. )
UNKNOWN - PT NOT,INTERVIEWE [Family Provider] - in less than 1 week
Additional Discharge Medication Instructions: added Protonix 40 mg daily
Prescriptions:
New
pantoprazole [Protonix] 40 mg tablet,delayed release (DR/EC)
40 mg PO DAILY Qty: 30 0RF
Continued
bicalutamide 50 MG tablet
50 mg PO QPM
Patient Comments:
08/09/2023: filled 07/26/23, 28 tabs for 28 days from [facility]. Family unsure if pt stopped medication on his own, family believes pt is supposed to be on this medication.
atorvastatin 10 MG tablet
10 mg PO QPM
tamsulosin 0.4 MG capsule
0.4 mg PO QPM
insulin aspart U-100 [Novolog FlexPen U-100 Insulin] 300 UNITS/3 ML insulin pen
15 units SC AC
cyclosporine [Restasis] 10 DROPS dropperette
1 drp BOTH EYES BID
carvedilol 6.25 mg tablet
6.25 mg PO BID
omega-3 acid ethyl esters 1 gram capsule
1 g PO QPM
dapagliflozin propanediol [Farxiga] 10 mg tablet
10 mg PO DAILY
Xultophy 100/3.6 100 unit-3.6 mg /mL (3 mL) insulin pen
20 unit SC DAILY
trospium 20 mg Tablet
20 mg PO AMHS
Discharge Orders:
Discharge Patient (As Directed); Ordered 08/22/23
Ordered By: Jailyn Alba
--- NOTE | 2023-08-22 15:43 | VNURNOTE ---
[facility] intake notified of resumption of care, patient was in OBS status during stay. SonBoubacar [facility]
--- NOTE | 2023-08-22 15:53 | W.PN.NEPH.PH ---
Today's Communication / Plan
-
- sign off
- sodium bicarb tabs
Assessment/Plan
-
IMP:
Chronic kidney disease stage IIIb-baseline 1.7-2, d/c at 1.4
Hyponatremia
Dementia (baseline)
Hypotension
Prostate cancer status post radiation
Essential hypertension
Hypercholesterolemia
Type 2 diabetes with mild microalbuminuria
Diabetic retinopathy
Diabetic neuropathy
Chronic neck/back pain
Plan:
CKD - Cr close/at baseline
previously with [facility] with medical renal disease and a small complex cyst (likely will not pursue aggressive management as patient has significant dementia)
bland UA
okay to restart farxiga
no jin placement
initiate sodium bicarb tabs for acidosis
of note, did discuss with patient and daughter at bedside today. they want to pursue least aggressive form of treatment. he wants his CKD managed by his primary doctor as much as possible. in this setting, we will sign off as Cr is at baseline.
-
-
Date of Service: August 22, 2023
CC / HPI / ROS
-
Chief Complaint:
CKD IIIB
History of Present Illness:
Cr at baseline (1.7-2)
no change in UOP
Review of Systems:
stress test negative
Labs
-
Labs:
WBC 7.0 10^3/uL (4.8-10.8) 08/22/23 04:50
RBC 3.04 10^6/uL (4.70-6.10) L 08/22/23 04:50
Hgb 9.8 g/dL (13.0-18.0) L 08/22/23 04:50
Hct 28.1 % (39.0-52.0) L 08/22/23 04:50
Plt Count 288 10^3/uL (130-400) 08/22/23 04:50
Sodium 131 mmol/L (135-145) L 08/22/23 04:50
Potassium 4.5 mmol/L (3.5-5.1) 08/22/23 04:50
Chloride 107 mmol/L (98-107) 08/22/23 04:50
Carbon Dioxide 18 mmol/L (22-30) L 08/22/23 04:50
BUN 30 mg/dl (9-20) H 08/22/23 04:50
Creatinine 1.7 mg/dL (0.7-1.3) H 08/22/23 04:50
eGFR 39.75 08/22/23 04:50
Glucose 100 mg/dl (70-99) H 08/22/23 04:50
Calcium 9.1 mg/dl (8.4-10.2) 08/22/23 04:50
Albumin 4.5 g/dl (3.5-5.0) 08/20/23 20:41
Physical Exam
-
Vital Signs:
Vital Signs
Temp Pulse Resp BP Pulse Ox
97.7 F 87 16 124/77 99
08/22/23 12:56 08/22/23 12:56 08/22/23 12:56 08/22/23 12:56 08/22/23 12:56
Cardiovascular:: Regular rate and rhythm
Respiratory:: Bilateral: CTA
Lung Excursion:: Normal
Abdomen:: Soft
Bowel Sounds:: Normal
Extremity Edema:: None: Bilateral:
Jin Catheter: No
--- NOTE | 2023-08-22 16:23 | CM ---
entered order for discharge .
Spoke with Lulú she will drive him home.
Remains under observation.
[facility] aware of dc.
PLAN [facility]
== END 2023-08-22 16:02 | disposition home health service (06) ==
LOC: 4 EAST ACU 01:27
PROVIDERS: Internal Medicine Cardiovascular Disease; ADMITTING PHYSICIAN Internal Medicine; ATTENDING PHYSICIAN Internal Medicine; CONSULT PHYSICIAN Student in an Organized Health Care Education/Training Program; EMERGENCY PHYSICIAN Emergency Medicine; OTHER PHYSICIAN Internal Medicine Cardiovascular Disease
PROC: 3E033HZ Introduction of Radioactive Substance into Peripheral Vein, Percutaneous Approach (ICD-10-PCS; 2023-08-22)
PROC: 4A02XM4 Measurement of Cardiac Total Activity, External Approach (ICD-10-PCS; 2023-08-22)
DX: R07.89 Other chest pain (principal); N17.9 Acute kidney failure, unspecified; N18.32 Chronic kidney disease, stage 3b; I12.9 Hypertensive chronic kidney disease with stage 1 through stage 4 chronic kidney disease, or unspecified chronic kidney disease; E11.22 Type 2 diabetes mellitus with diabetic chronic kidney disease; N40.0 Benign prostatic hyperplasia without lower urinary tract symptoms; E78.00 Pure hypercholesterolemia, unspecified; E11.40 Type 2 diabetes mellitus with diabetic neuropathy, unspecified; E11.319 Type 2 diabetes mellitus with unspecified diabetic retinopathy without macular edema; E87.1 Hypo-osmolality and hyponatremia; G30.9 Alzheimer's disease, unspecified; F02.80 Dementia in other diseases classified elsewhere, unspecified severity, without behavioral disturbance, psychotic disturbance, mood disturbance, and anxiety; K20.90 Esophagitis, unspecified without bleeding; I44.7 Left bundle-branch block, unspecified; M50.221 Other cervical disc displacement at C4-C5 level; Z66 Do not resuscitate; Z79.4 Long term (current) use of insulin; Z79.899 Other long term (current) drug therapy; Z85.46 Personal history of malignant neoplasm of prostate; Z87.891 Personal history of nicotine dependence; Z92.3 Personal history of irradiation
CPT/HCPCS: 71045; 71275; 78452; 80048; 80053; 80061; 82962; 83735; 84484; 85025; 85027; 85610; 93005; 93017; 96374; 97161; 99285; A9500; G0378; J2785; Q9967

== ENCOUNTER 2025-05-29 19:08 | Emergency (ER) | payer OTHER, SELFPAY ==
[2025-05-29 19:16] VITALS: BP 96/61
[2025-05-29 21:32] LABS: Hematocrit 35.9 % (39.0-52.0); Hemoglobin 12.0 g/dL (13.0-18.0); Mean Corp Hgb Conc. 33.4 g/dL (33.0-37.0); Mean Corpuscular Volume 93.7 fL (80.0-94.0); Nucleated Red Blood Cells % 0 % (-); Platelet Count 251 10^3/uL (130-400); Red Cell Dist. Width 12.5 % (11.5-14.5)
[2025-05-29] MEDS: NSS 1000 IV (21:33)
[2025-05-29 21:54] LABS: ALT (SGPT) 21 U/L (0-50); AST (SGOT) 30 U/L (17-59); Albumin 3.6 g/dl (3.5-5.0); Alkaline Phosphatase 93 U/L (38-126); Blood Urea Nitrogen 41 mg/dl (9-20); Calcium 9.2 mg/dl (8.4-10.2); Carbon Dioxide 25 mmol/L (22-30); Chloride 101 mmol/L (98-107); Glucose 140 mg/dl (70-99); Potassium 5.1 mmol/L (3.5-5.1); Sodium 132 mmol/L (135-145); Total Protein 6.9 g/dl (6.3-8.2); eGFR 42.22
[2025-05-29 22:29] VITALS: BP 102/62
--- NOTE | 2025-05-29 23:12 | ED.GENMED ---
History of Present Illness
General
Chief Complaint: Abdominal Symptoms
Source: patient and family
Exam Limitations: dementia
Time Seen by Provider: 05/29/25 20:59
History of Present Illness
History of Present Illness:
Note:
CHIEF COMPLAINT(S)
Diarrhea for the past two days.
HISTORY OF PRESENT ILLNESS
The patient is an 84-year-old male with a recent history of diarrhea spanning the last two days. The patient's son states the onset was earlier this week when he had a solid bowel movement unexpectedly. The diarrhea increased in frequency, causing
concern. Associated symptoms included loose stools and dehydration concerns, although no fever, blood in stools, or significant abdominal pain were noted. The patients family confirmed the absence of recent travel and illness exposure within the
household. The patient received 20 units of insulin due to elevated blood sugar levels, and his fluid balance was maintained with some food intake. Home interventions included the administration of Imodium, which was given three times, but the
patients symptoms persisted. The patient has an ongoing use of heating patches for chronic back pain. No recent antibiotic use was reported, but he has been on a sleep medication recently.
ADDITIONAL HISTORY OBTAINED FROM SOURCES OTHER THAN THE PATIENT
Per the patient�s family member, the patient has experienced diarrhea with increased frequency over the past two days. There has been no recent travel or exposure to others with similar symptoms. The patient has received his usual medication, which
includes a sleep aid.
PHYSICAL EXAM
General: Alert, no acute distress.
Skin: Warm, dry.
Head: Normocephalic, atraumatic.
Neck: Supple, trachea midline.
Eye Ears, nose, mouth and throat: Oral mucosa moist.
Cardiovascular: Normal peripheral perfusion, No edema.
Respiratory: Respirations are non-labored.
Gastrointestinal: Abdomen nondistended, no tenderness upon palpation.
Back: Normal range of motion, Normal alignment.
Musculoskeletal: Normal range of motion, normal strength.
Neurological: Alert, No focal neurological deficit observed.
Psychiatric: Cooperative, confused
PLAN
- Conduct laboratory work to assess dehydration status and other pertinent parameters.
- Administer intravenous fluids to maintain hydration.
- Collect and send a stool sample for analysis.
- Review the patients blood work for further assessment.
- Monitor patients response to administered treatment and reassess as necessary.
DIFFERENTIAL DIAGNOSIS
The Differential Diagnosis includes, in no particular order and is not limited to:
1. Viral gastroenteritis
2. Bacterial gastroenteritis
3. Clostridioides difficile infection
4. Medication-induced diarrhea
5. Inflammatory bowel disease
6. Irritable bowel syndrome
7. Hyperglycemia-induced diarrhea
8. Functional bowel disorder
9. Food intolerance or sensitivity
10. Chronic back pain-related gastrointestinal symptoms
Disposition:
SUMMARY OF ENCOUNTER
An 84-year-old male with a recent history of diarrhea was brought to the emergency department by his family. Labs were found to be grossly unremarkable and at baseline, with a normal white blood cell count of 8.9, hemoglobin at 12.0, and platelets
within normal limits. The chemistry panel was grossly unremarkable; however, it indicated chronic renal insufficiency with a creatinine level of 1.6, consistent with a previous value of 1.7 from August 2023. Blood glucose levels and liver function
tests (LFTs) were normal. The patient did not experience diarrhea while in the emergency department and maintained stable blood pressure. The patients daughter discussed the patients advanced dementia and declined aggressive intervention. She
expressed a desire to take the patient home and monitor his condition overnight. Case management was consulted to connect with the family for potential outpatient services or future placement considerations.
ASSESSMENT
Given the patients history, chronic renal insufficiency, and recent diarrhea without significant findings in the emergency department, monitoring and outpatient follow-up were determined appropriate.
PLAN
Engage case management for possible outpatient services and future placement consideration. The family was advised to return if symptoms worsen.
INDEPENDENT REVIEW OF LABS AND INTERPRETATION OF TESTS
- My independent review of the CBC is a normal white blood cell count of 8.9, hemoglobin 12.0, and normal platelets.
- My independent review of the chemistry panel indicates chronic renal insufficiency with a creatinine level of 1.6.
- My independent review of blood glucose is normal.
- My independent review of LFTs is normal.
FOLLOW-UP INSTRUCTIONS
The patient can return if symptoms worsen.
MEDICAL DECISION MAKING
- Number and Complexity of Problems Addressed: Chronic conditions affecting care include chronic renal insufficiency and advanced dementia.
- Data:
- Category 1:
- My independent review of labs such as CBC, chemistry, and LFTs.
- Category 2:
- Clinical information was obtained from an independent historian.
- Risk: Consideration of Admission/Observation: Escalation of care including admission/observation was considered given the complexity and risk of the patients presenting complaint, exam findings, and their underlying comorbidities. However,
ultimately, I feel the patient is safe for outpatient management with close follow-up. Reasoning: Work-up reassuring, does not reveal any acute life/organ threatening processes, patients symptoms well controlled upon reevaluation, reexamination is
reassuring, vitals are stable, patient agreeable with discharge, reliable for follow-up.
DIAGNOSIS
- Diarrhea, unspecified (ICD-10: R19.7)
- Chronic Kidney Disease, unspecified (ICD-10: N18.9)
- Dementia, unspecified without behavioral disturbance (ICD-10: F03.90)
Past History
Past History
ED Past Medical History: Cancer (Prostate CA with Radiation), HTN, Hypercholesterolemia and IDDM
ED Past Surgical History: Appendectomy
Social History
Tobacco: Former smoker
Alcohol: None
Personal:
Living: with family
Phy Exam
Physical Exam
Physical Exam:
.
Course
Orders/Labs/Results
Orders:
Orders
05/29/25 21:17
Complete Blood Count/With Diff Urgent
Comprehensive Metabolic Panel Urgent
05/29/25 21:24
STOOL [C difficile Antigen & Toxins] Urgent
CHRISSIE Source: Feces/Stool
Specimen Description:
Date Specimen was Collected: 05/29/25
Time Specimen was Collected: 21:30
Stool Culture Urgent
CHRISSIE Source: Feces/Stool
Specimen Description:
Date Specimen was Collected: 05/29/25
Time Specimen was Collected: 21:30
0.9% Sodium Chloride 1000 ml [Nss] 1,000 ml IV BOLUS
05/29/25 22:25
Vital Signs- Treatment ONCE
Frequency: Once
Abnormal Lab Results
05/29/25
21:17
RBC 3.83 L 10^6/uL
(4.70-6.10)
Hgb 12.0 L g/dL
(13.0-18.0)
Hct 35.9 L %
(39.0-52.0)
MCH 31.3 H pg
(27.0-31.0)
Absolute Neuts (auto) 7.1 H 10^3/uL
(1.4-6.5)
Neutrophils % 79.2 H %
(42.2-75.2)
Lymphocytes % 12.9 L %
(20.5-51.1)
Sodium 132 L mmol/L
(135-145)
BUN 41 H mg/dl
(9-20)
Creatinine 1.6 H mg/dL
(0.7-1.3)
Glucose 140 H mg/dl
(70-99)
05/29/25 21:17
05/29/25 21:17
Vital Signs
Initial and Last Documented VS:
Initial Vital Signs
Temp Resp BP Pulse Ox
97.6 F 18 96/61 99
05/29/25 19:16 05/29/25 19:16 05/29/25 19:16 05/29/25 19:16
Last Documented Vital Signs
Temp Pulse Resp BP Pulse Ox
97.6 F 90 18 102/62 97
05/29/25 19:16 05/29/25 22:29 05/29/25 22:29 05/29/25 22:29 05/29/25 22:29
*Pulse Oximetry
SaO2: 97
Oxygen Mode of Delivery: Room air
Patient hypoxic: no
*Critical Care Note
Total Time (30-74mins, 75-104mins- exclusive of procedures): Not Applicable
ED Attending Note
-
Portions of this chart may have been created with voice recognition software.� Occasional wrong word or��sound alike� substitutions may have occurred due to the inherent limitations of voice recognition software.
Discharge Plan
Departure
Patient Disposition: Home (Routine Discharge)
Date of Disposition: 05/29/25
Time of Disposition: 23:15
Patient with high blood pressure during this ER visit?: No
Discharge Problem:
Diarrhea
Instructions: Dehydration, Adult (DC), Clear Liquid Diet
Prescriptions:
No Action
bicalutamide 50 MG tablet
50 mg PO QPM
Patient Comments:
08/09/2023: filled 07/26/23, 28 tabs for 28 days from [facility]. Family unsure if pt stopped medication on his own, family believes pt is supposed to be on this medication.
atorvastatin 10 MG tablet
10 mg PO QPM
tamsulosin 0.4 MG capsule
0.4 mg PO QPM
insulin aspart U-100 [Novolog FlexPen U-100 Insulin] 300 UNITS/3 ML insulin pen
15 units SC AC
cyclosporine [Restasis] 10 DROPS dropperette
1 drp BOTH EYES BID
carvedilol 6.25 mg tablet
6.25 mg PO BID
omega-3 acid ethyl esters 1 gram capsule
1 g PO QPM
dapagliflozin propanediol [Farxiga] 10 mg tablet
10 mg PO DAILY
Xultophy 100/3.6 100 unit-3.6 mg /mL (3 mL) insulin pen
20 unit SC DAILY
trospium 20 mg Tablet
20 mg PO AMHS
pantoprazole [Protonix] 40 mg tablet,delayed release (DR/EC)
40 mg PO DAILY Qty: 30 0RF
aspirin 81 mg Tablet,Delayed Release (Dr/Ec)
81 mg PO DAILY
glimepiride 1 mg tablet
1 mg PO DAILY
gabapentin 100 mg capsule
100 mg PO BID
irbesartan 300 mg tablet
300 mg PO QPM
Referrals:
Ld Russell MD [Family Provider, Family Practice]
Activity Restrictions/Additional Instructions:
Please encourage proper fluid intake. Return immediately for progressive weakness, fevers, bloody stool or any other concerns.
Interventions
Interventions:
*General Assessment Last Done: 05/29/25 19:21
*ED COVID-19 Vaccine History Last Done: 05/29/25 19:21
*ED Influenza Vaccine History Last Done: 05/29/25 19:21
NO-Wxfrhw-Scilmsuyzu Assessment Last Done: 05/29/25 20:23
Discharge Date and Time
Print Language: LAO
--- NOTE | 2025-05-30 09:47 | EDCM ---
Addendum entered by Ingrid Cortez 05/30/25 13:06:
I called [facility], they only provide 24 hour continuous care when patent's have uncontrolled symptoms and pt gets reevaluated every 24 hours. Per Zaida, they have an appointment to meet with family tomorrow at 10am. [facility] accepted pt,
cost would be $350.00 a day for first 14 days. Discussed with daughter Lulú, she wants to take him home, they will meet with Zaida tomorrow. I gave her the address and contact information for [facility] if the family changes their mind.
Original Note:
Received consult, I met with pt's daughter in ED. Pt lives with his and son, who has MS and is WC bound. is primary caregiver. Pt is not eating or drinking much per daughter but has been having diarrhea at home. Famiy is having difficulty
caring for him and getting him to the bathroom frequently.
Daughter is interested in keeping him comfortable, looking for end of life care. She is looking for 24 hour care. Has a friend with a family member on [facility], she has already spoke to them. She believes they provide 24 hour care. I informed
her that is not covered by Medicare. 24 hour care would be private pay.
We also discussed SNF, family is not familiar with SNF in the area. I again told her the room and board is not covered by insurance. I spoke to Shira from [employer] referral sent to [facility] at her request, they will review.
[2025-05-30 11:07] VITALS: BP 153/90
== END 2025-05-30 13:16 | disposition home or self-care (01) ==
LOC: EMR 19:08
PROVIDERS: EMERGENCY PHYSICIAN Emergency Medicine; FAMILY PHYSICIAN Family Medicine
DX: R19.7 Diarrhea, unspecified (principal); F03.90 Unspecified dementia, unspecified severity, without behavioral disturbance, psychotic disturbance, mood disturbance, and anxiety; E11.22 Type 2 diabetes mellitus with diabetic chronic kidney disease; I12.9 Hypertensive chronic kidney disease with stage 1 through stage 4 chronic kidney disease, or unspecified chronic kidney disease; N18.9 Chronic kidney disease, unspecified; E78.00 Pure hypercholesterolemia, unspecified; M54.9 Dorsalgia, unspecified; G89.29 Other chronic pain; Z79.4 Long term (current) use of insulin; Z79.84 Long term (current) use of oral hypoglycemic drugs; Z79.82 Long term (current) use of aspirin; Z87.891 Personal history of nicotine dependence; Z85.46 Personal history of malignant neoplasm of prostate
CPT/HCPCS: 99283; 80053; 85025